=== PATIENT | female | born 1970 | race Caucasian/White ===

== ENCOUNTER → 2016-11-02 | Outpatient (CLI) | payer OTHER ==
[~2016-11-02] MED LIST: ACET-1175 PO; AMIT50TA3 PO; AMT25 PO; ASPI81TA28 PO; BCTROWC EXT; CEPH500C2 PO; CHOL1000 PO; CYAN1SUB12 PO; CYAN250T PO; DVN/160 PO; FENO145T26 PO; INSDGI SC; INSU1.2I SC; LEVO100T48 PO; LEVO150T9 PO; METF-384 PO; MXZC25 PO; NVLGI SC; NVLGIPEN SC; SIMV20TA2 PO; SULF800T23 PO; VTMB12UNK PO
--- NOTE | 2016-11-02 12:15 | DIAGNOSTIC IMAGING REPORT ---
THYROID ULTRASOUND CLINICAL HISTORY: Globus sensation. COMPARISON STUDY: Thyroid ultrasound August 01, 2009. TECHNIQUE: Sonography of the thyroid gland was performed. FINDINGS: The thyroid gland is heterogeneous. Size of the gland is normal. The right lobe measures 4.9 x 1.9 x 2.4 cm and the left lobe measures 5.4 x 1.4 x 1.8 cm. No thyroid nodule is identified. Gland heterogeneity may have slightly increased since exam of August 01, 2009. IMPRESSION: 1. No thyroid nodules identified. 2. Heterogeneous, normal size thyroid gland. Gland heterogeneity has likely slightly increased since exam of August 01, 2009. Electronically signed by: Slade Macedo M.D. 11/02/2016 12:13 PM Dictated Date/Time: 11/02/2016 12:12 PM
== END | disposition home or self-care (01) ==
LOC: C.ULTR 10:29
PROVIDERS: ATTEND Family Medicine
DX: F45.8 Other somatoform disorders (principal)

== ENCOUNTER → 2016-11-23 | Outpatient (CLI) | payer OTHER ==
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
== END | disposition home or self-care (01) ==
LOC: C.MAMM 10:04
PROVIDERS: ATTEND Nurse Practitioner Family
DX: N63 Unspecified lump in breast (principal)

== ENCOUNTER → 2017-01-29 | Outpatient (CLI) | payer OTHER ==
[2017-01-29 12:37] LABS: BASO % 0.2 %; BASO ABS # 0.01 K/uL (0-0.2); COMPLETE YES; EOS % 1.6 %; HEMATOCRIT 38.7 % (37-47); IG% 0.7 %; LYMPH % 27.7 %; LYMPH ABS # 1.19 K/uL (1.2-3.4); MEAN CELL VOLUME 93.9 fL (80-100); MEAN CORPUSCULAR HEMOGLOBIN 30.6 pg (25-34); MEAN CORPUSCULAR HGB CONC 32.6 g/dl (32-36); MONO % 4.4 %; NEUT % 65.4 %; PLATELET COUNT 243 K/uL (130-400); RED BLOOD COUNT 4.12 M/uL (4.2-5.4)
[2017-01-29 12:57] LABS: ESTIMATED AVERAGE GLUCOSE 252 mg/dl; HA1C FLAG Normal (Normal)
[2017-01-29 12:59] LABS: CALCIUM 9.5 mg/dl (8.5-10.1)
[2017-01-29 13:06] LABS: ALT/SGPT 33 U/L (12-78); AST/SGOT 29 U/L (15-37); BLOOD UREA NITROGEN 15 mg/dl (7-18); BUN/CREATININE RATIO 14.9 (10-20); CARBON DIOXIDE 24 mmol/L (21-32); CHLORIDE 103 mmol/L (98-107); CHOLESTEROL 139 mg/dl (0-200); CREATININE 0.98 mg/dl (0.60-1.20); GLUCOSE 194 mg/dl (70-99); POTASSIUM 4.2 mmol/L (3.5-5.1); SODIUM 138 mmol/L (136-145); TRIGLYCERIDES 347 mg/dl (0-150); VERY LOW DENSITY LIPOPROT CALC 69 mg/dl
[2017-01-29 13:16] LABS: ALB/GLOB RATIO 0.8 (0.9-2); ALKALINE PHOSPHATASE 75 U/L (45-117); HDL CHOLESTEROL 28 mg/dl; LDL CHOLESTEROL CALCULATED 42 mg/dl
[2017-01-29 13:24] LABS: RATIO 86.3 mcg/mg (0-30.0)
== END | disposition home or self-care (01) ==
LOC: C.LAB 11:16
PROVIDERS: ATTEND Nurse Practitioner Family
DX: E03.9 Hypothyroidism, unspecified (principal); I10 Essential (primary) hypertension; E78.00 Pure hypercholesterolemia, unspecified; E88.81 Metabolic syndrome and other insulin resistance; M12.88 Other specific arthropathies, not elsewhere classified, other specified site; E53.8 Deficiency of other specified B group vitamins; E55.9 Vitamin D deficiency, unspecified; E11.49 Type 2 diabetes mellitus with other diabetic neurological complication; E66.01 Morbid (severe) obesity due to excess calories

== ENCOUNTER 2017-03-14 15:16 | Emergency (ER) | payer OTHER ==
[~2017-03-14] VITALS: Ht 162.6 cm; Wt 156.0 kg
[~2017-03-14 15:16] MED LIST changes: -AMIT50TA3 PO; -BCTROWC EXT; -CEPH500C2 PO; -CHOL1000 PO; -CYAN1SUB12 PO; -CYAN250T PO; -INSU1.2I SC; -LEVO150T9 PO; -NVLGIPEN SC; -SULF800T23 PO
[2017-03-14 15:17] VITALS: TEMP 36.7; Ht 162.6 cm; Wt 156.0 kg
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
[2017-03-14] MEDS ORDERED: CYAN250T PO (15:56)
[2017-03-14] MEDS ORDERED: CHOL1000 PO (15:56)
[2017-03-14] MEDS ORDERED: AMIT50TA3 PO ×2 (15:56)
[2017-03-14] MEDS ORDERED: INSU1.2I SC (15:56)
[2017-03-14] MEDS ORDERED: NVLGIPEN SC (15:56)
--- NOTE | 2017-03-14 16:41 | DIAGNOSTIC IMAGING REPORT ---
RIGHT ELBOW MIN 3 VIEWS ROUTINE, RIGHT FOREARM 2 VIEWS ROUTINE, RIGHT WRIST W/NAVICULAR MIN 3 VIEWS, RIGHT HAND MIN 3 VIEWS ROUTINE CLINICAL HISTORY: fall, right arm pain Right. Right elbow pain. Right wrist pain and right hand pain. COMPARISON STUDY: None. FINDINGS: Dorsal soft tissue swelling within the wrist. Posterior forearm soft tissue swelling. No fracture or dislocation. No elbow effusion. IMPRESSION: No fracture or dislocation within the right elbow, right forearm, right wrist, or right hand. Electronically signed by: Hollis Espino M.D. 03/14/2017 4:40 PM Dictated Date/Time: 03/14/2017 4:36 PM
[2017-03-14 17:32] VITALS: BP 172/90; PULSE 95; O2SAT 99
== END 2017-03-14 17:32 | disposition home or self-care (01) ==
LOC: C.EDB 15:17 → C.EDD 17:32
DX: S63.501A Unspecified sprain of right wrist, initial encounter (principal); W19.XXXA Unspecified fall, initial encounter; E03.9 Hypothyroidism, unspecified; E11.9 Type 2 diabetes mellitus without complications; I10 Essential (primary) hypertension; K42.9 Umbilical hernia without obstruction or gangrene; Z79.4 Long term (current) use of insulin

== ENCOUNTER 2017-05-15 00:47 | Emergency (ER) | payer OTHER ==
[~2017-05-15] VITALS: Ht 165.1 cm; Wt 156.4 kg
[~2017-05-15 00:47] MED LIST changes: -ACET-1175 PO; +AMIT50TA3 PO; -AMT25 PO; +CHOL1000 PO; +CYAN250T PO; -INSDGI SC; +INSU1.2I SC; -LEVO100T48 PO; -NVLGI SC; +NVLGIPEN SC; -VTMB12UNK PO
[2017-05-15 00:51] VITALS: BP 163/96; PULSE 104; TEMP 36.6; O2SAT 96; Ht 165.1 cm; Wt 156.4 kg
[2017-05-15] MEDS ORDERED: BCTROWC EXT (01:12)
[2017-05-15] MEDS ORDERED: MUPIROCIN 2% OINT 22 GM TUBE EXT ONE (01:15)
[2017-05-15] MEDS ORDERED: CYAN1SUB12 PO (01:17)
[2017-05-15] MEDS ORDERED: LEVO150T9 PO (01:19)
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
== END 2017-05-15 01:30 | disposition home or self-care (01) ==
LOC: C.EDB 00:49 → C.EDA 01:30
DX: E13.622 Other specified diabetes mellitus with other skin ulcer (principal); I10 Essential (primary) hypertension; Z79.4 Long term (current) use of insulin; Z79.899 Other long term (current) drug therapy

== ENCOUNTER 2017-06-08 20:49 | Emergency (ER) | payer OTHER ==
[~2017-06-08] VITALS: Ht 167.6 cm; Wt 154.0 kg
[~2017-06-08 20:49] MED LIST changes: +CYAN1SUB12 PO; -CYAN250T PO; +LEVO150T9 PO
[2017-06-08 20:52] VITALS: TEMP 36.8; Ht 167.6 cm; Wt 154.0 kg
[2017-06-08] MEDS ORDERED: KETOROLAC TROMETHAMINE 30 MG/ML VIAL IV STA (21:25)
[2017-06-08] MEDS ORDERED: CEFTRIAXONE SOD INJ 1 GM ADDVIAL IV STA (21:25)
[2017-06-08] MEDS ORDERED: SODIUM CHLORIDE 0.9% 1000ML 1,000 ML IV STA (21:25)
[2017-06-08] MEDS ORDERED: SULFAMETHOXAZOLE/TRIMETHOPRIM DS 800/160MG TAB PO STA (21:25)
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
[2017-06-08 21:50] LABS: BASO % 0.1 %; BASO ABS # 0.01 K/uL (0-0.2); COMPLETE YES; HEMATOCRIT 37.4 % (37-47); IG% 0.4 %; LYMPH % 11.6 %; LYMPH ABS # 0.81 K/uL (1.2-3.4); MEAN CELL VOLUME 93.5 fL (80-100); MEAN CORPUSCULAR HEMOGLOBIN 32.8 pg (25-34); MEAN PLATELET VOLUME 10.6 fL (7.4-10.4); NEUT % 84.9 %; PLATELET COUNT 228 K/uL (130-400); WHITE BLOOD COUNT 6.97 K/uL (4.8-10.8)
[2017-06-08] MEDS ORDERED: SULF800T23 PO (21:57)
[2017-06-08] MEDS ORDERED: CEPH500C2 PO (21:57)
[2017-06-08 22:07] LABS: BUN/CREATININE RATIO 11.9 (10-20); CALCIUM 10.6 mg/dl (8.5-10.1); CREATININE 1.1 mg/dl (0.60-1.20); POTASSIUM 4.3 mmol/L (3.5-5.1)
[2017-06-08 22:53] VITALS: BP 134/78; PULSE 99; O2SAT 98
== END 2017-06-08 22:59 | disposition home or self-care (01) ==
LOC: C.EDB 20:51 → C.EDC 22:59
DX: L03.113 Cellulitis of right upper limb (principal); E11.9 Type 2 diabetes mellitus without complications; N80.9 Endometriosis, unspecified; I10 Essential (primary) hypertension; Z80.9 Family history of malignant neoplasm, unspecified; Z83.3 Family history of diabetes mellitus; Z83.79 Family history of other diseases of the digestive system; Z82.49 Family history of ischemic heart disease and other diseases of the circulatory system; Z84.1 Family history of disorders of kidney and ureter; Z79.82 Long term (current) use of aspirin; Z79.4 Long term (current) use of insulin; Z79.899 Other long term (current) drug therapy

== ENCOUNTER → 2017-08-30 | Outpatient (CLI) | payer OTHER ==
[2017-08-30 13:27] LABS: ESTIMATED AVERAGE GLUCOSE 220 mg/dl; HA1C FLAG Normal (Normal)
[2017-08-30 13:47] LABS: CREATININE RANDOM URINE 96.1 mg/dl
[2017-08-30 13:58] LABS: RATIO 121.8 mcg/mg (0-30.0)
[2017-08-30 14:06] LABS: ALT/SGPT 28 U/L (12-78); AST/SGOT 22 U/L (15-37); BLOOD UREA NITROGEN 17 mg/dl (7-18); BUN/CREATININE RATIO 16.8 (10-20); CALCIUM 9.3 mg/dl (8.5-10.1); CARBON DIOXIDE 23 mmol/L (21-32); CHLORIDE 102 mmol/L (98-107); CREATININE 0.99 mg/dl (0.60-1.20); GLUCOSE 147 mg/dl (70-99); POTASSIUM 3.8 mmol/L (3.5-5.1); SODIUM 136 mmol/L (136-145)
[2017-08-30 14:15] LABS: ALB/GLOB RATIO 0.8 (0.9-2); ALKALINE PHOSPHATASE 70 U/L (45-117); CHOLESTEROL 123 mg/dl (0-200); CHOLESTEROL/HDL RATIO 4.4; HDL CHOLESTEROL 28 mg/dl; LDL CHOLESTEROL CALCULATED 28 mg/dl; TRIGLYCERIDES 334 mg/dl (0-150); VERY LOW DENSITY LIPOPROT CALC 67 mg/dl
== END | disposition home or self-care (01) ==
LOC: C.LAB 12:07
PROVIDERS: ATTEND Nurse Practitioner Family
DX: I10 Essential (primary) hypertension (principal); E78.00 Pure hypercholesterolemia, unspecified; E11.49 Type 2 diabetes mellitus with other diabetic neurological complication

== ENCOUNTER 2017-10-12 11:49 | Emergency (ER) | payer OTHER ==
[~2017-10-12] VITALS: Ht 165.1 cm; Wt 118.0 kg
[~2017-10-12 11:49] MED LIST changes: -ASPI81TA28 PO; -CYAN1SUB12 PO; -INSU1.2I SC; -LEVO150T9 PO; -METF-384 PO; -MXZC25 PO
[2017-10-12 11:58] VITALS: TEMP 36.7; Ht 165.1 cm; Wt 118.0 kg
[2017-10-12 12:17] VITALS: O2SAT 99
[2017-10-12] MEDS ORDERED: FAMOTIDINE 20MG/5ML IV PUSH IV STA (12:50)
[2017-10-12] MEDS ORDERED: DiphenhydrAMINE HCL 50 MG/ML VIAL IV STA (12:50)
[2017-10-12] MEDS ORDERED: KETOROLAC TROMETHAMINE 30 MG/ML VIAL IV STA (12:50)
[2017-10-12 13:19] LABS: EOS % 0.4 %; EOS ABS # 0.02 K/uL (0-0.5); HEMATOCRIT 36.5 % (37-47); HEMOGLOBIN 12.4 g/dL (12.0-16.0); IG# 0.02 K/uL (0.00-0.02); LYMPH % 15.9 %; LYMPH ABS # 0.83 K/uL (1.2-3.4); MEAN CELL VOLUME 92.9 fL (80-100); MEAN CORPUSCULAR HEMOGLOBIN 31.6 pg (25-34); MEAN PLATELET VOLUME 10.6 fL (7.4-10.4); MONO ABS # 0.26 K/uL (0.11-0.59); NEUT % 78.3 %; NEUT ABS # 4.09 K/uL (1.4-6.5); PLATELET COUNT 240 K/uL (130-400); RED CELL DISTRIBUTION WIDTH CV 13.1 % (11.5-14.5); RED CELL DISTRIBUTION WIDTH SD 44.2 fL (36.4-46.3); WHITE BLOOD COUNT 5.22 K/uL (4.8-10.8)
[2017-10-12] MEDS ORDERED: ONDANSETRON INJ 2 MG/ML 2 ML VIAL IV STA (13:19)
[2017-10-12 13:26] LABS: CALCIUM 9.4 mg/dl (8.5-10.1); CREATININE 1.24 mg/dl (0.60-1.20); POTASSIUM 3.7 mmol/L (3.5-5.1)
--- NOTE | 2017-10-12 14:14 | DIAGNOSTIC IMAGING REPORT ---
CHEST 2 VIEWS ROUTINE CLINICAL HISTORY: Cough, fever and right shoulder rash. COMPARISON STUDY: Chest radiograph November 21, 2014. FINDINGS: Lung volumes are normal. Lungs are clear. No pneumothorax or pleural effusion is present. Cardiomediastinal silhouette is stable. There is no evidence of pulmonary edema. The appearance of the chest is unchanged. IMPRESSION: No acute cardiopulmonary findings. Electronically signed by: Slade Macedo M.D. 10/12/2017 2:13 PM Dictated Date/Time: 10/12/2017 2:12 PM
[2017-10-12] MEDS ORDERED: DEXAMETHASONE INJ 10 MG in SYRINGE 0 ML IV STA (14:19)
[2017-10-12] MEDS ORDERED: DEXAMETHASONE **PF** INJ 10 MG/ML VIAL ONE (14:24)
[2017-10-12] MEDS ORDERED: METH4PAK PO (15:26)
[2017-10-12] MEDS ORDERED: CEPH500C PO (15:26)
[2017-10-12 15:40] VITALS: BP 140/80; PULSE 91; O2SAT 98
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
[2018-04-22] MEDS ORDERED: MXZC25 PO (00:36)
[2018-04-22] MEDS ORDERED: ASPI81TA28 PO (00:38)
[2018-04-22] MEDS ORDERED: METF-384 PO (00:40)
[2018-04-22] MEDS ORDERED: CYAN1SUB12 PO (01:17)
[2018-04-22] MEDS ORDERED: LEVO150T9 PO (01:19)
[2018-04-22] MEDS ORDERED: INSU1.2I SC (15:56)
[2018-04-22] MEDS ORDERED: HYDR-4383 PO (22:50)
[2018-04-22] MEDS ORDERED: LIRA18IN PO (22:50)
[2018-04-22] MEDS ORDERED: TRC145 PO (22:50)
[2018-04-22] MEDS ORDERED: AMT100 PO (22:50)
[2018-04-22] MEDS ORDERED: NVLGI/PEN SC (22:50)
[2018-04-22] MEDS ORDERED: SIMV-151 PO (22:50)
[2018-04-22] MEDS ORDERED: VALS-58 PO (22:50)
[2018-04-22] MEDS ORDERED: CHOLCAP5 PO (22:51)
[2018-04-25] MEDS ORDERED: POLY335019 PO (16:01)
== END 2017-10-12 15:46 | disposition home or self-care (01) ==
LOC: C.EDB 11:51 → C.EDA 15:46
DX: J06.9 Acute upper respiratory infection, unspecified (principal); R21 Rash and other nonspecific skin eruption; E11.9 Type 2 diabetes mellitus without complications; Z79.84 Long term (current) use of oral hypoglycemic drugs; Z79.4 Long term (current) use of insulin; I10 Essential (primary) hypertension; Z90.49 Acquired absence of other specified parts of digestive tract; Z80.9 Family history of malignant neoplasm, unspecified; Z83.3 Family history of diabetes mellitus; Z82.49 Family history of ischemic heart disease and other diseases of the circulatory system; Z84.1 Family history of disorders of kidney and ureter; Z87.891 Personal history of nicotine dependence; Z79.82 Long term (current) use of aspirin; Z79.899 Other long term (current) drug therapy

== ENCOUNTER → 2018-01-26 | Outpatient (CLI) | payer OTHER ==
[~2018-01-26] MED LIST changes: +ASPI81TA28 PO; +CYAN1SUB12 PO; +INSU1.2I SC; +LEVO150T9 PO; +METF-384 PO; +MXZC25 PO
[2018-01-26 13:56] LABS: BLOOD UREA NITROGEN 13 mg/dl (7-18); CALCIUM 9.7 mg/dl (8.5-10.1); CARBON DIOXIDE 25 mmol/L (21-32); CREATININE 1.15 mg/dl (0.60-1.20); GLUCOSE 128 mg/dl (70-99); SODIUM 135 mmol/L (136-145)
== END | disposition home or self-care (01) ==
LOC: C.LAB 12:05
PROVIDERS: ATTEND Nurse Practitioner Family
DX: E03.9 Hypothyroidism, unspecified (principal); E88.81 Metabolic syndrome and other insulin resistance; E11.49 Type 2 diabetes mellitus with other diabetic neurological complication

== ENCOUNTER → 2018-04-27 | Outpatient (CLI) | payer OTHER ==
[~2018-04-27] MED LIST changes: -AMIT50TA3 PO; +AMT100 PO; -CHOL1000 PO; +CHOLCAP5 PO; -DVN/160 PO; -FENO145T26 PO; +HYDR-4383 PO; +LIRA18IN PO; +NVLGI/PEN SC; -NVLGIPEN SC; +POLY335019 PO; +SIMV-151 PO; -SIMV20TA2 PO; +TRC145 PO; +VALS-58 PO
[2018-04-27 13:43] LABS: HEMOGLOBIN A1C 7.9 % (4.5-5.6)
[2018-04-27 14:07] LABS: BASO % 0.2 %; BASO ABS # 0.01 K/uL (0-0.2); EOS % 1.3 %; EOS ABS # 0.06 K/uL (0-0.5); HEMATOCRIT 33.3 % (37-47); HEMOGLOBIN 11.2 g/dL (12.0-16.0); IG# 0.04 K/uL (0.00-0.02); LYMPH % 26.2 %; LYMPH ABS # 1.21 K/uL (1.2-3.4); MEAN CELL VOLUME 92.5 fL (80-100); MEAN CORPUSCULAR HEMOGLOBIN 31.1 pg (25-34); MEAN CORPUSCULAR HGB CONC 33.6 g/dl (32-36); MEAN PLATELET VOLUME 10.4 fL (7.4-10.4); MONO % 4.6 %; MONO ABS # 0.21 K/uL (0.11-0.59); NEUT % 66.8 %; NEUT ABS # 3.08 K/uL (1.4-6.5); PLATELET COUNT 282 K/uL (130-400); RED CELL DISTRIBUTION WIDTH CV 13.3 % (11.5-14.5); RED CELL DISTRIBUTION WIDTH SD 44.9 fL (36.4-46.3); WHITE BLOOD COUNT 4.61 K/uL (4.8-10.8)
== END | disposition home or self-care (01) ==
LOC: C.LAB 12:23
PROVIDERS: ATTEND Nurse Practitioner Family
DX: E11.49 Type 2 diabetes mellitus with other diabetic neurological complication (principal); D64.9 Anemia, unspecified

== ENCOUNTER 2019-05-03 22:08 | Inpatient (IN) ==
[2019-05-03] MEDS ORDERED: ACETAMINOPHEN 500 MG TAB PO STA (22:20)
[2019-05-03] MEDS ORDERED: SODIUM CHLORIDE 0.9% 1000ML 2,000 ML IV ONE (22:20)
[2019-05-03] MEDS ORDERED: KETOROLAC TROMETHAMINE 15 MG/ML VIAL IV STA (22:20)
--- NOTE | 2019-05-03 22:27 | XRay Report ---
XR chest 1V portable CLINICAL HISTORY: Sepsis condition COMPARISON STUDY: 04/22/2018 FINDINGS: The bones soft tissues and hemidiaphragms are normal. The cardiomediastinal silhouette is n ormal. The lungs are clear. The pulmonary vasculature is normal. IMPRESSION: Negative chest. The above report was generated using voice recognition software. It may contain grammatical, syntax or spelling errors. Electronically signed by: Sylvester Jernigan M.D. 05/03/2019 10:26 PM
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
[2019-05-03 22:53] LABS: Basophils # (auto) 0.01 K/uL (0-0.2); Basophils % (auto) 0.1 %; Eosinophils # (auto) 0.01 K/uL (0-0.5); Eosinophils % (auto) 0.1 %; Hematocrit (blood only) 36.6 % (37-47); Hemoglobin 12.4 g/dL (12.0-16.0); Immature Granulocytes # (auto) 0.04 K/uL (0.00-0.02); Immature Granulocytes % (auto) 0.3 %; Lymphocytes % (auto) 5.1 %; Mean Corpuscular Hgb Conc 33.9 g/dL (32-36); Mean Corpuscular Volume 94.6 fL (80-100); Mean Platelet Volume 10.7 fL (7.4-10.4); Monocytes # (auto) 0.44 K/uL (0.11-0.59); Monocytes % (auto) 3.7 %; Neutrophils # (auto) 10.65 K/uL (1.4-6.5); Neutrophils % (auto) 90.7 %; Platelet Count 240 K/uL (130-400); RDW Coefficient of Variation 13.4 % (11.5-14.5); RDW Standard Deviation 46.1 fL (36.4-46.3); Red Blood Count 3.87 M/uL (4.2-5.4); White Blood Count 11.75 K/uL (4.8-10.8)
[2019-05-03 23:05] LABS: Partial Thromboplastin Ratio 0.9; Partial Thromboplastin Time 23.8 Seconds (21.0-31.0); Prothrombin Time 10.3 Seconds (9.0-12.0)
[2019-05-03 23:12] LABS: Alanine Aminotransferase 24 U/L (12-78); Albumin Level 3.6 gm/dl (3.4-5.0); Aspartate Aminotransferase 23 U/L (15-37); Blood Urea Nitrogen 15 mg/dl (7-18); Calcium 9.6 mg/dl (8.5-10.1); Carbon Dioxide 25 mmol/L (21-32); Chloride 103 mmol/L (98-107); Creatinine Clr Calc Pharmacy 73.8 ml/min; Est GFR (African American) 49.5; Est GFR (Non-African American) 42.7; Glucose 108 mg/dl (70-99); Sodium 136 mmol/L (136-145)
[2019-05-03 23:17] LABS: Albumin Globulin Ratio 0.8 (0.9-2); Alkaline Phosphatase 59 U/L (45-117); Bilirubin,Total 0.4 mg/dl (0.2-1); Globulin 4.4 gm/dl (2.5-4.0); Troponin I < 0.015 ng/ml (0-0.045)
[2019-05-03 23:20] LABS: Appearance Urine Cloudy (Clear); Bacteria Urine Automated 2+ (Negative); Bilirubin Urine Negative (Negative); Blood Urine Negative (Negative); Color Urine Yellow; Epithelial Cell Urine Auto >30 /lpf (0-5); Glucose Urine UA Negative (Negative); Ketones Urine Negative (Negative); Leukocyte Esterase Urine Negative (Negative); Nitrite Urine Negative (Negative); RBC Urine Automated 0-4 /hpf (0-4); Specific Gravity Urine 1.016 (1.000-1.030); Urobilinogen Urine Negative (Negative); pH Urine 8.5 (4.5-7.5)
[2019-05-03 23:21] LABS: Magnesium 1.4 mg/dl (1.8-2.4)
[2019-05-03 23:30] LABS: Protein Urine Negative (Negative)
[2019-05-03] MEDS ORDERED: OPTIRAY 320 125ml IV PRN (23:53)
[2019-05-04] MEDS ORDERED: MoRPHine SULFATE 4 MG/ML 1 ML CARP\\VIAL ONE ×2 (00:34→03:04)
[2019-05-04] MEDS ORDERED: PIPERACILLIN/TAZOBACTAM 4.5 GM/120 ML BAG IV ONE (01:31)
[2019-05-04] MEDS ORDERED: PIPERACILL/TAZOBAC CONSULT ACTIVE PRN ×2 (01:31→04:01)
[2019-05-04] MEDS ORDERED: SODIUM CHLORIDE 0.9% 1000ML 1,000 ML IV ONE (01:31)
[2019-05-04] MEDS ORDERED: ONDANSETRON INJ 2 MG/ML 2 ML VIAL ONE (03:03)
[2019-05-04] MEDS ORDERED: POLYETHYLENE (MIRALAX) 17 GM PACK PO PRN (04:01)
[2019-05-04] MEDS ORDERED: NON-FORMULARY MEDICATION (Polyethylene Glycol 3350 [Miralax] 17 GM) PO PRN (04:01)
[2019-05-04] MEDS ORDERED: NITROGLYCERIN SL 0.4 MG/TAB TAB SL PRN (04:01)
[2019-05-04] MEDS: SODIUM CHLORIDE 0.9% 1000ML 1,000 ML IV SCH ×3 (04:33→21:10)
[2019-05-04] MEDS: MAGNESIUM SULFATE / D5W 1 GM/100 ML BAG IV SCH ×2 (04:34→05:34)
--- NOTE | 2019-05-04 04:35 | History and Physical Report ---
DATE OF ADMISSION: 05/04/2019 CHIEF COMPLAINT: Not feeling well, fever. HISTORY OF PRESENT ILLNESS: This is a 48-year-old female with past medical history significant for type 2 diabetes, hypothyroidism, hypertension, morbid obesity, history of small-bowel obstruction, ventral hernia, presents with not feeling well since yesterday. The patient says since yesterday, she was feeling cold and chilly, then she developed some fever, whole body ache. Left side of chest hurts and left side of body hurts, some back pain, weakness, having difficulty ambulating, poor appetite, headaches, some blurred vision, so she came to the hospital. She had temp spike in the ER and elevated white count, but no obvious source of infection identified so far. The point of the lactic acid was slightly high at 2.1. The patient was nauseous, no vomiting. Normal bowel and bladder movements. No blood in the stools, no black stools. States she has some mild burning micturition, but no hematuria. No swelling in the legs, no rash. ALLERGIES: DILTIAZEM AND LOSARTAN. PAST MEDICAL HISTORY: As mentioned above. PAST SURGICAL HISTORY: Exploratory laparoscopy, laparoscopic umbilical hernia repair, lumbar shots, removal of small intestine, cholecystectomy, umbilical hernia repair. MEDICATIONS: The patient is on simvastatin 20 mg p.o. daily, Maxzide 37.5/25 mg daily, NovoLog FlexPen 56 units daily, plus sliding scale, Toujeo SoloStar 135 units b.i.d., Elavil 100 mg p.o. at bedtime, Victoza 1.2 mg subcutaneous once daily, levothyroxine 150 mcg p.o. daily, losartan 100 mg p.o. daily, vitamin D 3000 units p.o. daily, aspirin 81 mg p.o. daily, cyanocobalamin 2500 mcg daily, fenofibrate 145 mg p.o. daily, metformin 1000 mg p.o. b.i.d. FAMILY HISTORY: Significant for uncle had colon cancer and heart disease. Mother has hypertension and thyroid disorder. Maternal grandmother has diabetes. SOCIAL HISTORY: Lives with her mom. No smoking history. No alcohol, no drug use. REVIEW OF SYMPTOMS: As per HPI. Rest of review of systems negative. PHYSICAL EXAMINATION: GENERAL: The patient is morbidly obese, not in acute distress. VITAL SIGNS: T-max 38.4, pulse 101, respiratory rate 19, blood pressure 103/57, oxygen 96% room air. HEENT: No pallor, no icterus. Pupils equal, round, and reactive to light. NECK: No JVD, no neck masses, no carotid bruits. CARDIOVASCULAR: S1, S2 heard, regular rate and rhythm, no murmur, no gallop. RESPIRATORY SYSTEM: Normal AP diameter. No accessory muscle use. No wheezing, no crackles. ABDOMEN: Soft, bowel sounds present, nontender. No distention. CENTRAL NERVOUS SYSTEM: Cranial nerves II-XII grossly intact. Nonfocal. EXTREMITIES: No edema, no erythema. LABORATORY DATA: WBC 11.7, hemoglobin 12.4, hematocrit 36.6, platelets 240. PT 10.3, INR 1, APTT 23.8. Sodium 136, potassium 4, chloride 103, bicarbonate 25, BUN 15, creatinine 1.4, serum glucose 108. Point of lactic acid 2.1, calcium 9.6, magnesium 1.4, total bilirubin 0.4, AST 23, ALT 24, alkaline phosphatase 59. Troponin I less than 0.015. Procalcitonin 0.12. TSH 2.3. Urinalysis negative. CT of the abdomen and pelvis, unofficial report unremarkable. Chest x-ray, negative chest. EKG: Sinus tachycardia at a rate of 114. No acute ST changes seen. ASSESSMENT AND PLAN: This is a 48-year-old female who presents with fever, not feeling well, possible sepsis. 1. Possible sepsis. Meets criteria with elevated white count, temperature spike, tachycardia, source unclear at this point. UA was negative. Chest x-ray was negative. CT abdomen and pelvis unremarkable. Possible skin infection, could be viral infection. Point of lactic acid is 2.1. will repeat lactic acid. Continue IV fluids and normal saline of 125mL per hour. We will continue IV Zosyn. Follow the blood cultures. Monitor in the Med/Surg tele. 2. Diabetes. Continue home Toujekyrie Max with ISS . Hold metformin. Follow the blood sugars, follow HbA1c levels. 3. History of hyperlipidemia. Continue fenofibrate and statin. 4. Hypertension. Continue losartan with holding parameters and hold triamterene/hydrochlorothiazide. 5. Hypothyroidism. Continue Synthroid. 6. Morbid obesity, needs counseling and needs maybe sleep study as outpatient. 7. Deep venous thrombosis prophylaxis, heparin subcutaneously. 8. Disposition: Admit to med/surg tele. Level 1 full code. MTDD
[2019-05-04] MEDS ORDERED: PHARMACY GLYCEMIC MGMT CONSULT PRN (04:39)
[2019-05-04 05:26] LABS: BUN Creatinine Ratio 10.8 (10-20); Calcium 8.2 mg/dl (8.5-10.1); Creatinine Clr Calc Pharmacy 76.5 ml/min; Est GFR (African American) 49.9; Est GFR (Non-African American) 43.1; Potassium 3.8 mmol/L (3.5-5.1)
[2019-05-04] MEDS: PIPERACILLIN/TAZOBACTAM 4.5 GM in DEXTROSE 5% 100 ML IV SCH ×3 (06:30→21:51)
[2019-05-04] MEDS: LEVOTHYROXINE SODIUM 150 MCG TABLET PO SCH (06:33)
[2019-05-04] MEDS: HEPARIN SOD 5,000 UNIT/0.5 ML VIAL SQ SCH ×3 (06:33→21:05)
[2019-05-04] MEDS: ACETAMINOPHEN 325 MG TAB PO PRN ×3 (06:39→21:58)
--- NOTE | 2019-05-04 06:40 | CT Scan Report ---
CT abd pelvis IV con only CLINICAL HISTORY: Abdominal pain and fever COMPARISON STUDY: 04/23/2018 TECHNIQUE: The patient was scanned in a dynamic helical fashion during intravenous administration of 119 cc of Optiray 320. A dose lowering technique was utilized adhering to the principles of ALARA. CT DOSE: 2166.24 mGy.cm FINDINGS: Lower chest: The heart is normal in size and configuration, without pericardial effusion. The lung ba ses and pleural spaces are clear. Liver: There is borderline hepatic steatosis. The liver is enlarged measuring 26.7 cm. No focal shabnam s are visualized. The portal vein appears patent. There are equivocal early cirrhotic changes. Gallbladder: Surgically absent Spleen: The spleen is mildly enlarged measuring 13.8 cm. There is a stable 13 mm hypodensity within t he superior aspect of the spleen. Pancreas: Unremarkable. Adrenal glands: Unremarkable. Kidneys: There is symmetric renal cortical enhancement. The kidneys are normal in size without hydron ephrosis. Bowel: There are no transition zones indicate bowel obstruction. There is no acute diverticulitis. By history the patient is status post a prior appendectomy. Peritoneum: There is no intraperitoneal free air or abdominal ascites. Vasculature: The abdominal aorta is normal in course and caliber. Adenopathy: There are mildly enlarged lymph nodes in the tyrel hepatis region, possibly secondary to underlying hepatocellular disease Pelvic viscera: The bladder, and pelvic viscera are unremarkable. Skeletal structures: No destructive osseous lesions are seen. There is eggshell calcifications within the subcutaneous fat at the umbilical level, likely secondary to fat necrosis. IMPRESSION: 1. No evidence of bowel obstruction. No evidence of free air 2. Mild hepatic steatosis and hepatosplenomegaly 3. No evidence of acute diverticulitis 4. Mildly enlarged lymph nodes in the tyrel hepatis region, possibly secondary to underlying hepatoce llular disease Electronically signed by: Rolo Cerrato M.D. 05/04/2019 6:38 AM
[2019-05-04] MEDS: MoRPHine SULFATE 4 MG/ML 1 ML CARP\\VIAL IV PRN ×2 (07:54→16:41)
[2019-05-04] MEDS: LOSARTAN POTASSIUM 50 MG TAB PO SCH (07:55)
[2019-05-04] MEDS: DOCUSATE SODIUM 100 MG CAP PO SCH (07:55)
[2019-05-04] MEDS: FENOFIBRATE NANOCRYSTALLIZED 145 MG TABLET PO SCH (07:55)
[2019-05-04] MEDS: ASPIRIN 81 MG ECTAB PO SCH (07:55)
[2019-05-04] MEDS: CHOLECALCIFEROL 1,000 UNITS TAB PO SCH (07:55)
[2019-05-04] MEDS: INSULIN ASPART 100 UNITS/ML 3 ML PEN SC SCH ×4 (07:58→21:04)
[2019-05-04] MEDS: ONDANSETRON INJ 2 MG/ML 2 ML VIAL IV PRN ×2 (08:02→14:16)
[2019-05-04] MEDS: INSULIN GLARGINE SOLOSTAR 100 UNITS/ML 3 ML PEN SC SCH ×2 (08:57→21:05)
[2019-05-04] MEDS ORDERED: NON-FORMULARY MEDICATION (Liraglutide [Victoza 2-Pak] 1.2 MG) SQ SCH (09:00)
[2019-05-04 09:36] LABS: Hematocrit (blood only) 32.6 % (37-47); Hemoglobin 10.8 g/dL (12.0-16.0); Immature Granulocytes # (auto) 0.02 K/uL (0.00-0.02); Immature Granulocytes % (auto) 0.3 %; Lymphocytes # (auto) 0.42 K/uL (1.2-3.4); Mean Corpuscular Hgb Conc 33.1 g/dL (32-36); Mean Corpuscular Volume 93.4 fL (80-100); Mean Platelet Volume 10.2 fL (7.4-10.4); Monocytes # (auto) 0.21 K/uL (0.11-0.59); Neutrophils # (auto) 6.32 K/uL (1.4-6.5); Neutrophils % (auto) 90.7 %; Platelet Count 193 K/uL (130-400); RDW Coefficient of Variation 13.8 % (11.5-14.5); RDW Standard Deviation 47.2 fL (36.4-46.3); Red Blood Count 3.49 M/uL (4.2-5.4); White Blood Count 6.97 K/uL (4.8-10.8)
[2019-05-04 09:46] LABS: Estimated Average Glucose 194 mg/dl; Hemoglobin A1C 8.4 % (4.5-5.6)
[2019-05-04 10:00] LABS: BUN Creatinine Ratio 11.8 (10-20); Calcium 8.3 mg/dl (8.5-10.1); Creatinine Clr Calc Pharmacy 75.9 ml/min; Est GFR (African American) 49.5; Est GFR (Non-African American) 42.7; Potassium 3.9 mmol/L (3.5-5.1)
--- NOTE | 2019-05-04 10:29 | Pharmacy Report ---
Glycemic Control Consultation - Date of Service May 04, 2019 - Scope Scope: Glycemic Pharmacist consulted by Dr Cowan on 05/04/19 for glycemic control and to write orders per [facility] inpatient glycemic control protocol - Objective Weight: 160.8 kg Accuchecks BSG (last 24hrs): 05/03/19 05/04/19 05/04/19 22:38 03:12 03:45 Glucose 108 H POC Glucose 79 72 05/04/19 05/04/19 05/04/19 04:46 07:26 09:22 Glucose 98 155 H POC Glucose 111 H Laboratory Data (last 24hrs): 05/03/19 05/04/19 05/04/19 22:38 04:46 09:22 Potassium 4.0 3.8 3.9 Carbon Dioxide Anion Gap 8.0 8.0 7.0 Creatinine 1.46 H 1.45 H 1.46 H Est Cr Clr Drug Dosing 73.8 76.5 75.9 HbA1c: Hemoglobin A1c 8.4 % (4.5-5.6) H 05/04/19 09:22 - Recent Pertinent Medications Outpatient Anti-diabetic Regimen: * Liraglutide 1.2mg SQ AM * Toujeo (insulin glargine U-300) 125 units SQ BID * Metformin 1,000mg PO BIDM Risk Factors for Insulin Resistance: * Infection * Diet - Assessment & Plan Assessment & Plan: ASSESSMENT: * 48yo T2DM female with sub-optimal degree of outpatient control per A1c = 8.4%. Goal A1c likely <7% based on age/co-morbidities. * Pt received her AM dose of Toujeo (glargine U-300) 125 units but did not receive her PM dose. AM fasting BSG slightly below inpatient targets in the mid 70's. Will use an estimated basal dose of ~100-110 units/day for inpatient use while PO intake reduced and meals CHO controlled. * Corresponding CF/CR to estimated basal of ~ 100 units/day * Will continue to titrate based on BSG trends. PLAN FOR INPATIENT GLYCEMIC CONTROL: * Holding outpatient diabetes medications * Basal insulin * Lantus 50 units SQ BID * Bolus insulin * NovoLog per scale ACHS or Q6hrs while NPO * Goal Range: Low 110 mg/dL - High 140 mg/dL * Correction Factor: 10 mg/dL/unit * Nutritional / Prandial insulin per carb ratio of 1 unit per 3 grams CHO consumed * Please note that the plan above was derived based on current level of insulin resistance and hospital stress. These recommendations are appropriate for inpatient admission only. Plan of care upon discharge will need to be reassessed to avoid potential outpatient hypo/hyperglycemia. Thank you.
--- NOTE | 2019-05-04 18:08 | Hospitalist Progress Note ---
Date of Service May 04, 2019 Assessment & Plan (1) Febrile illness, acute: Presented with high fever, aches and pains all over the body and anorexia Seems to be viral UA and chest x-ray are unremarkable Started with intravenous Zosyn empirically Await cultures before discharge Present on Admission?: Yes (2) Sepsis: Possible sepsis on admission Await blood cultures (3) DM (diabetes mellitus): Continue sliding-scale (4) HTN (hypertension): Blood pressure seems to be under control Advised more fluid intake Increase ambulation Likely discharge tomorrow Subjective 05/04 The patient was seen and examined in Telemetry unit She was admitted with high fever, body aches and generalized weakness Has a fever this morning as well Denies any significant other symptoms Review of Systems Review of Systems: All systems reviewed and are unremarkable except as noted below Constitutional: + body aches, + malaise and + weakness Physical Exam Physical Exam: No apparent distress at rest Constitutional: well developed, well nourished and + morbidly obese; no acute distress Eyes: PERRL, conjunctivae normal, anicteric sclerae ENMT: external ear and nose normal, oropharynx normal Neck: trachea midline, no thyromegaly Respiratory: normal respiratory effort Auscultation: + diminished lung sounds (Due to body habitus) Cardiovascular: Rate/Rhythm: regular rate and regular rhythm Heart Sounds: no murmur Gastrointestinal (Abdomen): Inspection/Auscultation: + abdomen distended Percussion/Palpation: + abdomen tender (Mildly tender hypogastrium) and abdomen soft Neurologic: PERRL, EOMI, accommodation nl, no face palsy, no dysarthria Lymphatic: no cervical or axillary lymphadenopathy Results & Data Vital Signs (Past 12 Hours) Vital Signs Temp Pulse Resp BP BP Pulse Ox 05/04/19 15:07 37 C 85 18 119/73 96 05/04/19 12:42 37.2 C 85 18 131/78 98 05/04/19 07:28 38.2 C H 97 H 22 143/75 H 96 Laboratory Results Short CBC 05/03/19 05/04/19 Range/Units 22:38 09:22 WBC 11.75 H 6.97 (4.8-10.8) K/uL Hgb 12.4 10.8 L (12.0-16.0) g/dL Hct 36.6 L 32.6 L (37-47) % Plt Count 240 193 (130-400) K/uL BMP 05/03/19 05/04/19 05/04/19 22:38 04:46 09:22 Sodium 136 135 L 134 L Potassium 4.0 3.8 3.9 Chloride 103 103 105 Carbon Dioxide 24 22 BUN 15 16 17 Creatinine 1.46 H 1.45 H 1.46 H Glucose 108 H 98 155 H Calcium 9.6 8.2 L 8.3 L Cardiac Enzymes 05/03/19 Range/Units 22:38 Troponin I < 0.015 (0-0.045) ng/ml Liver Function 05/03/19 Range/Units 22:38 Total Bilirubin 0.4 (0.2-1) mg/dl AST 23 (15-37) U/L ALT 24 (12-78) U/L Alkaline Phosphatase 59 (45-117) U/L Albumin 3.6 (3.4-5.0) gm/dl Urine 05/03/19 Range/Units 23:09 Urine Color Yellow Urine Appearance Cloudy A (Clear) Urine pH 8.5 H (4.5-7.5) Ur Specific [place] 1.016 (1.000-1.030) Urine Protein Negative (Negative) Urine Glucose (UA) Negative (Negative) Medications Administered Current Inpatient Medications Acetaminophen (Tylenol) 650 mg PO Q4H PRN PRN Reason: Pain or Fever Stop: 06/03/19 04:00 Last Admin: 05/04/19 16:46 Dose: 650 mg Documented by: Amitriptyline HCl (Elavil) 100 mg PO HS [facility] Stop: 06/03/19 20:59 Aspirin (Ecotrin Ectab) 81 mg PO DAILY [facility] Stop: 06/03/19 08:59 Last Admin: 05/04/19 07:55 Dose: 81 mg Documented by: Docusate Sodium (Colace) 200 mg PO DAILY [facility] Stop: 06/03/19 08:59 Last Admin: 05/04/19 07:55 Dose: 200 mg Documented by: Fenofibrate (Tricor) 145 mg PO DAILY [facility] Stop: 06/03/19 08:59 Last Admin: 05/04/19 07:55 Dose: 145 mg Documented by: Heparin Sodium (Porcine) (Heparin Sodium (Porcine)) 5,000 units SQ Q8 [facility] Stop: 06/03/19 05:59 Last Admin: 05/04/19 13:22 Dose: 5,000 units Documented by: Sodium Chloride (Nss 1000ml) 1,000 mls @ 125 mls/hr IV .Q8H [facility] Stop: 06/03/19 04:00 Last Admin: 05/04/19 12:32 Dose: 125 mls/hr Documented by: Piperacillin Sod/Tazobactam (Sod 4.5 gm/ Dextrose) 120 mls @ 30 mls/hr IV Q8H [facility]; Protocol Stop: 05/06/19 05:59 Last Infusion: 05/04/19 17:30 Dose: Infused Documented by: Insulin Aspart (Novolog Flexpen) 0 units SC ACHS [facility] Stop: 06/03/19 07:29 Last Admin: 05/04/19 16:40 Dose: 16 units Documented by: Insulin Glargine (Lantus Solostar Pen) 50 units SC BID [facility] Stop: 06/03/19 08:59 Last Admin: 05/04/19 08:57 Dose: 50 units Documented by: Levothyroxine Sodium (Synthroid) 150 mcg PO DAILYBB [facility] Stop: 06/03/19 06:29 Last Admin: 05/04/19 06:33 Dose: 150 mcg Documented by: Losartan Potassium (Cozaar) 100 mg PO DAILY [facility] Stop: 06/03/19 08:59 Last Admin: 05/04/19 07:55 Dose: 100 mg Documented by: Miscellaneous Information (Consult) 1 ea N/A UD PRN PRN Reason: Consult Stop: 06/03/19 04:00 Miscellaneous Information (Consult Glycemic Management Pharmacy) 1 ea N/A UD PRN PRN Reason: Consult Stop: 06/03/19 04:38 Morphine Sulfate (Morphine Sulfate) 3 mg IV Q4H PRN PRN Reason: Pain Stop: 05/18/19 04:00 Last Admin: 05/04/19 16:41 Dose: 3 mg Documented by: Nitroglycerin (Nitrostat) 0.4 mg SL UD PRN PRN Reason: Chest Pain Stop: 06/03/19 04:00 Ondansetron HCl (Zofran) 4 mg IV Q6H PRN PRN Reason: Nausea Stop: 06/03/19 04:00 Last Admin: 05/04/19 14:16 Dose: 4 mg Documented by: Polyethylene Glycol (Miralax Powder Packet) 17 gm PO DAILY PRN PRN Reason: Constipation Stop: 06/03/19 04:00 Simvastatin (Zocor) 20 mg PO PM [facility] Stop: 06/03/19 20:59 Vitamin D (Vitamin D3) 5,000 units PO DAILY [facility] Stop: 06/03/19 08:59 Last Admin: 05/04/19 07:55 Dose: 5,000 units Documented by: (1) Sepsis Sepsis type: sepsis due to unspecified organism Qualified Code(s): A41.9 - Sepsis, unspecified organism
[2019-05-04] MEDS ORDERED: MICONAZOLE NITRATE POWDER 43 GM EXT PRN (19:07)
[2019-05-04] MEDS: AMITRIPTYLINE HCL 100 MG TAB PO SCH (21:05)
[2019-05-04] MEDS: SIMVASTATIN 20 MG TAB PO SCH (21:05)
[2019-05-04] MEDS ORDERED: TRAMADOL HCL 50 MG TABLET PO PRN (22:10)
[2019-05-04] MEDS ORDERED: KETOROLAC 30 MG/ML VIAL IV PRN (22:11)
[2019-05-05] MEDS: TRAMADOL HCL 50 MG TABLET PO PRN (02:50)
[2019-05-05] MEDS: SODIUM CHLORIDE 0.9% 1000ML 1,000 ML IV SCH ×2 (05:18→13:41)
[2019-05-05] MEDS: HEPARIN SOD 5,000 UNIT/0.5 ML VIAL SQ SCH ×3 (05:59→20:11)
[2019-05-05] MEDS: PIPERACILLIN/TAZOBACTAM 4.5 GM in DEXTROSE 5% 100 ML IV SCH (05:59)
[2019-05-05] MEDS: LEVOTHYROXINE SODIUM 150 MCG TABLET PO SCH (06:01)
[2019-05-05 06:06] LABS: Basophils # (auto) 0.01 K/uL (0-0.2); Basophils % (auto) 0.2 %; Eosinophils # (auto) 0.07 K/uL (0-0.5); Eosinophils % (auto) 1.6 %; Hematocrit (blood only) 32.4 % (37-47); Hemoglobin 10.5 g/dL (12.0-16.0); Immature Granulocytes # (auto) 0.02 K/uL (0.00-0.02); Immature Granulocytes % (auto) 0.5 %; Lymphocytes # (auto) 0.59 K/uL (1.2-3.4); Lymphocytes % (auto) 13.7 %; Mean Corpuscular Hgb Conc 32.4 g/dL (32-36); Mean Platelet Volume 10.8 fL (7.4-10.4); Monocytes # (auto) 0.25 K/uL (0.11-0.59); Monocytes % (auto) 5.8 %; Neutrophils # (auto) 3.38 K/uL (1.4-6.5); Neutrophils % (auto) 78.2 %; Platelet Count 198 K/uL (130-400); RDW Coefficient of Variation 14.1 % (11.5-14.5); RDW Standard Deviation 48.9 fL (36.4-46.3); Red Blood Count 3.41 M/uL (4.2-5.4); White Blood Count 4.32 K/uL (4.8-10.8)
[2019-05-05 06:45] LABS: BUN Creatinine Ratio 12.7 (10-20); Calcium 8.2 mg/dl (8.5-10.1); Creatinine Clr Calc Pharmacy 93.9 ml/min; Est GFR (African American) 64.1; Est GFR (Non-African American) 55.3; Magnesium 2.1 mg/dl (1.8-2.4); Potassium 3.9 mmol/L (3.5-5.1)
[2019-05-05] MEDS: INSULIN ASPART 100 UNITS/ML 3 ML PEN SC SCH ×4 (08:31→20:11)
[2019-05-05] MEDS: INSULIN GLARGINE SOLOSTAR 100 UNITS/ML 3 ML PEN SC SCH ×2 (08:32→20:11)
[2019-05-05] MEDS: ASPIRIN 81 MG ECTAB PO SCH (08:32)
[2019-05-05] MEDS: FENOFIBRATE NANOCRYSTALLIZED 145 MG TABLET PO SCH (08:32)
[2019-05-05] MEDS: LOSARTAN POTASSIUM 50 MG TAB PO SCH (08:32)
[2019-05-05] MEDS: DOCUSATE SODIUM 100 MG CAP PO SCH (08:33)
[2019-05-05] MEDS: CHOLECALCIFEROL 1,000 UNITS TAB PO SCH (08:33)
--- NOTE | 2019-05-05 13:09 | Hospitalist Progress Note ---
Date of Service May 05, 2019 Assessment & Plan (1) Febrile illness, acute: Presented with high fever, aches and pains all over the body and anorexia Seems to be viral UA and chest x-ray are unremarkable Started with intravenous Zosyn empirically Zosyn has been discontinued and started on oral Keflex Blood cultures have been negative but urine culture is pending Facial and lower abdominal erythema Could be secondary to viral illness and/or side effect of antibiotic Zosyn has been discontinued (2) Sepsis: Possible sepsis on admission Await blood cultures-negative White count is normalized and hemodynamically stable Sepsis ruled out (3) DM (diabetes mellitus): Continue sliding-scale (4) HTN (hypertension): Blood pressure seems to be under control Advised more fluid intake Increase ambulation Await urine culture Likely discharge tomorrow Subjective 05/04 The patient was seen and examined in Telemetry unit She was admitted with high fever, body aches and generalized weakness Has a fever this morning as well Denies any significant other symptoms 05/05 Patient was seen and examined in medical floor She has been complaining of flushed facies and also erythematous area in the lower abdomen Denies any fever and/or chills Worried that she may have reaction secondary to antibiotic Review of Systems Review of Systems: All systems reviewed and are unremarkable except as noted below Constitutional: + body aches Generalized weakness has improved Integumentary: Facial erythema with increased local temperature, likely secondary to side effect of antibiotic/fever Physical Exam Physical Exam: Lying in bed comfortably Constitutional: well developed, well nourished and + morbidly obese; no acute distress Eyes: PERRL, conjunctivae normal, anicteric sclerae ENMT: external ear and nose normal, oropharynx normal Neck: trachea midline, no thyromegaly Respiratory: normal respiratory effort Auscultation: + diminished lung sounds (Due to body habitus) Cardiovascular: Rate/Rhythm: regular rate and regular rhythm Heart Sounds: no murmur Gastrointestinal (Abdomen): Inspection/Auscultation: + abdomen distended Percussion/Palpation: abdomen soft Musculoskeletal: No acute arthritis in any joints Skin: Minimal erythema involving the face and the lower abdomen. Doubt any spreading cellulitis Neurologic: PERRL, EOMI, accommodation nl, no face palsy, no dysarthria Lymphatic: no cervical or axillary lymphadenopathy Results & Data Vital Signs (Past 12 Hours) Vital Signs Temp Pulse Resp BP Pulse Ox 05/05/19 07:47 37 C 81 16 145/83 H 97 05/05/19 00:00 36.7 C 85 20 135/82 94 Laboratory Results Short CBC 05/05/19 Range/Units 05:08 WBC 4.32 L (4.8-10.8) K/uL Hgb 10.5 L (12.0-16.0) g/dL Hct 32.4 L (37-47) % Plt Count 198 (130-400) K/uL BMP 05/05/19 05:08 Sodium 136 Potassium 3.9 Chloride 107 Carbon Dioxide 23 BUN 15 Creatinine 1.18 Glucose 133 H Calcium 8.2 L Medications Administered Current Inpatient Medications Acetaminophen (Tylenol) 650 mg PO Q4H PRN PRN Reason: Pain or Fever Stop: 06/03/19 04:00 Last Admin: 05/04/19 21:58 Dose: 650 mg Documented by: Amitriptyline HCl (Elavil) 100 mg PO HS [facility] Stop: 06/03/19 20:59 Last Admin: 05/04/19 21:05 Dose: 100 mg Documented by: Aspirin (Ecotrin Ectab) 81 mg PO DAILY [facility] Stop: 06/03/19 08:59 Last Admin: 05/05/19 08:32 Dose: 81 mg Documented by: Cephalexin HCl (Keflex) 500 mg PO TID [facility]; Protocol Stop: 05/10/19 13:59 Docusate Sodium (Colace) 200 mg PO DAILY [facility] Stop: 06/03/19 08:59 Last Admin: 05/05/19 08:33 Dose: 200 mg Documented by: Fenofibrate (Tricor) 145 mg PO DAILY [facility] Stop: 06/03/19 08:59 Last Admin: 05/05/19 08:32 Dose: 145 mg Documented by: Heparin Sodium (Porcine) (Heparin Sodium (Porcine)) 5,000 units SQ Q8 [facility] Stop: 06/03/19 05:59 Last Admin: 05/05/19 05:59 Dose: 5,000 units Documented by: Sodium Chloride (Nss 1000ml) 1,000 mls @ 125 mls/hr IV .Q8H [facility] Stop: 06/03/19 04:00 Last Admin: 05/05/19 05:18 Dose: 125 mls/hr Documented by: Insulin Aspart (Novolog Flexpen) 0 units SC ACHS [facility] Stop: 06/03/19 07:29 Last Admin: 05/05/19 12:15 Dose: 19 units Documented by: Insulin Glargine (Lantus Solostar Pen) 50 units SC BID [facility] Stop: 06/03/19 08:59 Last Admin: 05/05/19 08:32 Dose: 50 units Documented by: Levothyroxine Sodium (Synthroid) 150 mcg PO DAILYBB [facility] Stop: 06/03/19 06:29 Last Admin: 05/05/19 06:01 Dose: 150 mcg Documented by: Losartan Potassium (Cozaar) 100 mg PO DAILY [facility] Stop: 06/03/19 08:59 Last Admin: 05/05/19 08:32 Dose: 100 mg Documented by: Miconazole Nitrate (Desenex) 1 appln EXT PRN PRN PRN Reason: Affected Skin Folds Stop: 06/03/19 19:06 Miscellaneous Information (Consult Glycemic Management Pharmacy) 1 ea N/A UD PRN PRN Reason: Consult Stop: 06/03/19 04:38 Morphine Sulfate (Morphine Sulfate) 3 mg IV Q4H PRN PRN Reason: Pain Stop: 05/18/19 04:00 Last Admin: 05/04/19 16:41 Dose: 3 mg Documented by: Nitroglycerin (Nitrostat) 0.4 mg SL UD PRN PRN Reason: Chest Pain Stop: 06/03/19 04:00 Ondansetron HCl (Zofran) 4 mg IV Q6H PRN PRN Reason: Nausea Stop: 06/03/19 04:00 Last Admin: 05/04/19 14:16 Dose: 4 mg Documented by: Polyethylene Glycol (Miralax Powder Packet) 17 gm PO DAILY PRN PRN Reason: Constipation Stop: 06/03/19 04:00 Simvastatin (Zocor) 20 mg PO PM [facility] Stop: 06/03/19 20:59 Last Admin: 05/04/19 21:05 Dose: 20 mg Documented by: Tramadol HCl (Ultram) 50 mg PO Q4H PRN PRN Reason: Pain Stop: 06/03/19 22:11 Last Admin: 05/05/19 02:50 Dose: 50 mg Documented by: Vitamin D (Vitamin D3) 5,000 units PO DAILY [facility] Stop: 06/03/19 08:59 Last Admin: 05/05/19 08:33 Dose: 5,000 units Documented by: (1) Sepsis Sepsis type: sepsis due to unspecified organism Qualified Code(s): A41.9 - Sepsis, unspecified organism
[2019-05-05] MEDS ORDERED: CARBOHYDRATES FOR HYPOGLYCEMIA PO PRN (13:30)
[2019-05-05] MEDS ORDERED: DEXTROSE 50% 50 ML SYRINGE IV PRN (13:30)
[2019-05-05] MEDS ORDERED: GLUCOSE 40% GEL 15 GM TUBE PO PRN (13:30)
[2019-05-05] MEDS ORDERED: GLUCOSE 10 TABS/TUBE PO PRN (13:30)
[2019-05-05] MEDS ORDERED: GLUCAGON FOR INJ 1 MG VIAL IM PRN (13:30)
[2019-05-05] MEDS: ACETAMINOPHEN 325 MG TAB PO PRN (13:41)
[2019-05-05] MEDS: cephALEXin 500 MG CAP PO SCH ×2 (13:41→20:10)
[2019-05-05] MEDS: SIMVASTATIN 20 MG TAB PO SCH (20:10)
[2019-05-05] MEDS: AMITRIPTYLINE HCL 100 MG TAB PO SCH (20:10)
[2019-05-06] MEDS: TRAMADOL HCL 50 MG TABLET PO PRN (00:20)
[2019-05-06] MEDS: LEVOTHYROXINE SODIUM 150 MCG TABLET PO SCH (06:30)
[2019-05-06] MEDS: HEPARIN SOD 5,000 UNIT/0.5 ML VIAL SQ SCH ×2 (06:31→13:04)
[2019-05-06] MEDS ORDERED: FLUCONAZOLE 50 MG TAB PO ONE (08:05)
[2019-05-06] MEDS ORDERED: INSULIN GLARGINE SOLOSTAR 100 UNITS/ML 3 ML PEN SC SCH (09:00)
[2019-05-06] MEDS: LOSARTAN POTASSIUM 50 MG TAB PO SCH (09:32)
[2019-05-06] MEDS: CHOLECALCIFEROL 1,000 UNITS TAB PO SCH (09:32)
[2019-05-06] MEDS: FENOFIBRATE NANOCRYSTALLIZED 145 MG TABLET PO SCH (09:33)
[2019-05-06] MEDS: ASPIRIN 81 MG ECTAB PO SCH (09:33)
[2019-05-06] MEDS: cephALEXin 500 MG CAP PO SCH ×2 (09:33→13:04)
[2019-05-06] MEDS: INSULIN ASPART 100 UNITS/ML 3 ML PEN SC SCH ×2 (09:38→12:44)
[2019-05-06] MEDS: DOCUSATE SODIUM 100 MG CAP PO SCH (10:03)
[2019-05-06] MEDS: INSULIN GLARGINE SOLOSTAR 100 UNITS/ML 3 ML PEN SC SCH (10:15)
--- NOTE | 2019-05-06 11:00 | Hospitalist Progress Note ---
Date of Service May 06, 2019 Assessment & Plan (1) Febrile illness, acute: Presented with high fever, aches and pains all over the body and anorexia Seems to be viral UA and chest x-ray are unremarkable Started with intravenous Zosyn empirically Zosyn has been discontinued and started on oral Keflex Blood cultures have been negative but urine culture is is negative Discontinue antibiotic Discharge home today Facial and lower abdominal erythema Could be secondary to viral illness and/or side effect of antibiotic Zosyn has been discontinued The erythematous lesions of face and lower abdomen are gone Back pain Tylenol does not We will try tramadol for a very very short course of a day or 2 (2) Sepsis: Possible sepsis on admission Await blood cultures-negative White count is normalized and hemodynamically stable Sepsis ruled out (3) DM (diabetes mellitus): Continue sliding-scale (4) HTN (hypertension): Blood pressure seems to be under control Advised more fluid intake Increase ambulation Discharge this afternoon Subjective 05/04 The patient was seen and examined in Telemetry unit She was admitted with high fever, body aches and generalized weakness Has a fever this morning as well Denies any significant other symptoms 05/05 Patient was seen and examined in medical floor She has been complaining of flushed facies and also erythematous area in the lower abdomen Denies any fever and/or chills Worried that she may have reaction secondary to antibiotic 05/06 The patient was seen and examined in medical floor She complains to have some pain at the back and also in the groin area Denies any fever and chills the redness of the face in the lower abdomen are gone She will be going home this afternoon Review of Systems Review of Systems: All systems reviewed and are unremarkable except as noted below Constitutional: + body aches Generalized weakness has improved Integumentary: Facial erythema with increased local temperature, likely secondary to side effect of antibiotic/fever Physical Exam Physical Exam: No apparent distress at rest Constitutional: well developed, well nourished and + morbidly obese; no acute distress Eyes: PERRL, conjunctivae normal, anicteric sclerae ENMT: external ear and nose normal, oropharynx normal Neck: trachea midline, no thyromegaly Respiratory: normal respiratory effort Auscultation: + diminished lung sounds (Due to body habitus) Cardiovascular: Rate/Rhythm: regular rate and regular rhythm Heart Sounds: no murmur Gastrointestinal (Abdomen): Inspection/Auscultation: + abdomen distended Percussion/Palpation: abdomen soft Skin: The redness of the face and the lower abdomen are resolved Neurologic: PERRL, EOMI, accommodation nl, no face palsy, no dysarthria Lymphatic: no cervical or axillary lymphadenopathy Results & Data Vital Signs (Past 12 Hours) Vital Signs Temp Pulse Resp BP Pulse Ox 05/06/19 07:22 36.5 C 75 18 127/79 97 05/05/19 23:00 36.7 C 84 20 156/85 H 97 Laboratory Results Urine culture has been negative Medications Administered Current Inpatient Medications Acetaminophen (Tylenol) 650 mg PO Q4H PRN PRN Reason: Pain or Fever Stop: 06/03/19 04:00 Last Admin: 05/05/19 13:41 Dose: 650 mg Documented by: Amitriptyline HCl (Elavil) 100 mg PO HS [facility] Stop: 06/03/19 20:59 Last Admin: 05/05/19 20:10 Dose: 100 mg Documented by: Aspirin (Ecotrin Ectab) 81 mg PO DAILY [facility] Stop: 06/03/19 08:59 Last Admin: 05/06/19 09:33 Dose: 81 mg Documented by: Cephalexin HCl (Keflex) 500 mg PO TID [facility]; Protocol Stop: 05/10/19 13:59 Last Admin: 05/06/19 09:33 Dose: 500 mg Documented by: Dextrose (Dextrose 50%) 25 - 50 ml IV UD PRN; Protocol PRN Reason: Hypoglycemia Protocol Stop: 06/04/19 13:29 Docusate Sodium (Colace) 200 mg PO DAILY [facility] Stop: 06/03/19 08:59 Last Admin: 05/06/19 10:03 Dose: 200 mg Documented by: Fenofibrate (Tricor) 145 mg PO DAILY [facility] Stop: 06/03/19 08:59 Last Admin: 05/06/19 09:33 Dose: 145 mg Documented by: Glucagon (Glucagen) 1 mg IM UD PRN; Protocol PRN Reason: Hypoglycemia Protocol Stop: 06/04/19 13:29 Glucose (Glucose 40%) 15 - 30 gm PO UD PRN; Protocol PRN Reason: Hypoglycemia Protocol Stop: 06/04/19 13:29 Glucose (Dex4 Glucose) 4 - 8 tabs PO UD PRN; Protocol PRN Reason: Hypoglycemia Protocol Stop: 06/04/19 13:29 Heparin Sodium (Porcine) (Heparin Sodium (Porcine)) 5,000 units SQ Q8 [facility] Stop: 06/03/19 05:59 Last Admin: 05/06/19 06:31 Dose: 5,000 units Documented by: Insulin Aspart (Novolog Flexpen) 0 units SC ACHS [facility] Stop: 06/03/19 07:29 Last Admin: 05/06/19 09:38 Dose: 17 units Documented by: Insulin Glargine (Lantus Solostar Pen) 45 units SC BID [facility] Stop: 06/05/19 08:59 Last Admin: 05/06/19 09:39 Dose: 45 units Documented by: Levothyroxine Sodium (Synthroid) 150 mcg PO DAILYBB [facility] Stop: 06/03/19 06:29 Last Admin: 05/06/19 06:30 Dose: 150 mcg Documented by: Losartan Potassium (Cozaar) 100 mg PO DAILY [facility] Stop: 06/03/19 08:59 Last Admin: 05/06/19 09:32 Dose: 100 mg Documented by: Miconazole Nitrate (Desenex) 1 appln EXT PRN PRN PRN Reason: Affected Skin Folds Stop: 06/03/19 19:06 Miscellaneous (Carbohydrates For Hypoglycemia) 15 - 30 gm PO UD PRN PRN Reason: Hypoglycemia Treatment Stop: 06/04/19 13:29 Miscellaneous Information (Consult Glycemic Management Pharmacy) 1 ea N/A UD PRN PRN Reason: Consult Stop: 06/03/19 04:38 Morphine Sulfate (Morphine Sulfate) 3 mg IV Q4H PRN PRN Reason: Pain Stop: 05/18/19 04:00 Last Admin: 05/04/19 16:41 Dose: 3 mg Documented by: Nitroglycerin (Nitrostat) 0.4 mg SL UD PRN PRN Reason: Chest Pain Stop: 06/03/19 04:00 Polyethylene Glycol (Miralax Powder Packet) 17 gm PO DAILY PRN PRN Reason: Constipation Stop: 06/03/19 04:00 Last Admin: 05/05/19 15:56 Dose: 17 gm Documented by: Simvastatin (Zocor) 20 mg PO PM [facility] Stop: 06/03/19 20:59 Last Admin: 05/05/19 20:10 Dose: 20 mg Documented by: Tramadol HCl (Ultram) 50 mg PO Q4H PRN PRN Reason: Pain Stop: 06/03/19 22:11 Last Admin: 05/06/19 00:20 Dose: 50 mg Documented by: Vitamin D (Vitamin D3) 5,000 units PO DAILY [facility] Stop: 06/03/19 08:59 Last Admin: 05/06/19 09:32 Dose: 5,000 units Documented by: (1) Sepsis Sepsis type: sepsis due to unspecified organism Qualified Code(s): A41.9 - Sepsis, unspecified organism
--- NOTE | 2019-05-07 07:52 | Discharge Summary ---
Date of Service May 07, 2019 Admission HPI Per Admitting Provider DICTATED BY: Miguel Angel Cowan MD DATE OF ADMISSION: 05/04/2019 CHIEF COMPLAINT: Not feeling well, fever. HISTORY OF PRESENT ILLNESS: This is a 48-year-old female with past medical history significant for type 2 diabetes, hypothyroidism, hypertension, morbid obesity, history of small-bowel obstruction, ventral hernia, presents with not feeling well since yesterday. The patient says since yesterday, she was feeling cold and chilly, then she developed some fever, whole body ache. Left side of chest hurts and left side of body hurts, some back pain, weakness, having difficulty ambulating, poor appetite, headaches, some blurred vision, so she came to the hospital. She had temp spike in the ER and elevated white count, but no obvious source of infection identified so far. The point of the lactic acid was slightly high at 2.1. The patient was nauseous, no vomiting. Normal bowel and bladder movements. No blood in the stools, no black stools. States she has some mild burning micturition, but no hematuria. No swelling in the legs, no rash. Admission Exam Per Admitting Provider GENERAL: The patient is morbidly obese, not in acute distress. VITAL SIGNS: T-max 38.4, pulse 101, respiratory rate 19, blood pressure 103/57, oxygen 96% room air. HEENT: No pallor, no icterus. Pupils equal, round, and reactive to light. NECK: No JVD, no neck masses, no carotid bruits. CARDIOVASCULAR: S1, S2 heard, regular rate and rhythm, no murmur, no gallop. RESPIRATORY SYSTEM: Normal AP diameter. No accessory muscle use. No wheezing, no crackles. ABDOMEN: Soft, bowel sounds present, nontender. No distention. CENTRAL NERVOUS SYSTEM: Cranial nerves II-XII grossly intact. Nonfocal. EXTREMITIES: No edema, no erythema. Principal Diagnosis Viral syndrome, UTI has been ruled out Discharge Exam Constitutional well developed, well nourished and + morbidly obese; no acute distress Eyes PERRL, conjunctivae normal, anicteric sclerae ENMT external ear and nose normal, oropharynx normal Neck trachea midline, no thyromegaly Respiratory normal respiratory effort Auscultation: + diminished lung sounds (Due to body habitus) Cardiovascular Rate/Rhythm: regular rate and regular rhythm Heart Sounds: no murmur Gastrointestinal (Abdomen) Inspection/Auscultation: + abdomen distended Percussion/Palpation: abdomen soft Neurologic PERRL, EOMI, accommodation nl, no face palsy, no dysarthria Lymphatic no cervical or axillary lymphadenopathy Discharge Data Allergies Allergy/AdvReac Type Severity Reaction Status Date / Time pramipexole Allergy Intermediate Vomiting Verified 05/03/19 23:08 Consultations 05/04/19 01:31 ED Decision to Admit Stat Ordered Studies 05/03/19 23:34 CT abd pelvis IV con only Stat Hospital Course (1) Febrile illness, acute: Presented with high fever, aches and pains all over the body and anorexia Seems to be viral UA and chest x-ray are unremarkable Started with intravenous Zosyn empirically Zosyn has been discontinued and started on oral Keflex Blood cultures have been negative but urine culture is is negative Discontinue antibiotic Discharge home today Facial and lower abdominal erythema Could be secondary to viral illness and/or side effect of antibiotic Zosyn has been discontinued The erythematous lesions of face and lower abdomen are gone Back pain Tylenol does not We will try tramadol for a very very short course of a day or 2 (2) Sepsis: Possible sepsis on admission Await blood cultures-negative White count is normalized and hemodynamically stable Sepsis ruled out (3) DM (diabetes mellitus): Continue sliding-scale (4) HTN (hypertension): Blood pressure seems to be under control Advised more fluid intake Increase ambulation Discharge this afternoon Total Time Total Time Spent Total Time Spent (In Minutes): 35 minutes Total Time Includes: Examination of the Patient, Discharge Planning, Medication Reconciliation and Communication With Other Providers Discharge Plan Discharge Items Patient Disposition: Home - Self-Care Reason For Visit: FEVER, ILLNESS Discharge Diagnosis: Viral syndrome, UTI has been ruled out Condition: Fair Discharge Goals: Decrease discomfort, Improve function and Increase independence Activity: Resume your previous activity Non-emergency contact: Primary Care Provider Call non-emergency contact if: you have any medication questions and your symptoms worsen Follow-up/Referrals: Mihai Tanner DO [Primary Care Provider] - (Your doctor's office will call with an appointment within 7 days) Diet: Carb Consistent or DM2 and Heart Healthy Addtl Provider Instructions: Is try to drink more fluid No change in her current medical Can try ibuprofen for pain control Prescriptions: Continued aspirin 81 mg Tablet,Delayed Release (Dr/Ec) 81 mg PO DAILY RF: 0 simvastatin 20 mg Tablet 20 mg PO PM RF: 0 metformin 1,000 mg tablet 1,000 mg PO BID RF: 0 levothyroxine 150 mcg Tablet 150 mcg PO DAILY RF: 0 docusate sodium [Colace] 100 mg Capsule 200 mg PO DAILY RF: 0 triamterene-hydrochlorothiazid 37.5-25 mg Tablet 1 tab PO DAILY RF: 0 polyethylene glycol 3350 [Miralax] 17 gram/dose Powder 17 g PO DAILY PRN (Reason: Constipation) RF: 0 losartan 100 mg tablet 100 mg PO DAILY RF: 0 amitriptyline 100 mg Tablet 100 mg PO HS RF: 0 fenofibrate nanocrystallized 145 mg Tablet 145 mg PO DAILY RF: 0 cholecalciferol (vitamin D3) [Vitamin D3] 5,000 unit Tablet 5,000 unit PO DAILY RF: 0 Victoza 2-Mc 0.6 mg/0.1 mL (18 mg/3 mL) Pen Injector 1.2 mg SUBCUT QAM RF: 0 Toujeo Max U-300 SoloStar 300 unit/mL (3 mL) Insulin Pen 125 unit SUBCUT AMPM RF: 0 Novolog Flexpen U-100 Insulin 100 unit/mL (3 mL) insulin pen SUBCUT AC RF: 0 Stand-Alone Forms: [facility]/Other Patient Handouts: Diabetes Longterm Complications, Hyperglycemia, Hypoglycemia, Diabetes Type 2 Coping, Diabetes Healthy Meals, Diabetes Carbs, Diabetes Eating Out, Diabetes Exercise Get Started, Diabetes Activity Tips Discharge Orders: Discharge Order (Routine); Ordered 05/06/19 Ordered By: Wilton Grimm Admission Data Admit Date/Time: 05/04/19 02:28 Attending Provider: Wilton Grimm Admit Provider: Miguel Angel Cowan Primary Care Provider: Mihai Tanner Other Providers: Miguel Angel Cowan Service: Medical Other Interventions: Discharge Summary Assessment (RN) Last Done: 05/06/19 11:39 DC Date/Time DO NOT enter until pt leaves facility: 05/06/19 14:13
== END 2019-05-06 14:13 | disposition home or self-care (01) | DRG 866 ==
LOC: ED 22:08 → 2S 05-04 02:28 → 2N 05-04 16:56

== ENCOUNTER 2021-08-19 19:10 | Inpatient (IN) ==
[2021-08-19] MEDS ORDERED: dexAMETHasone**PF** 10 MG/ML VIAL IV ONE (19:29)
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
[2021-08-19 20:09] LABS: iSTAT Arterial Blood Gas HCO3 24 meg/L (19-24); iSTAT Arterial Blood Gas pCO2 34 mmHg (35-46); iSTAT Arterial Blood Gas pH 7.45 (7.35-7.45); iSTAT Arterial Blood Gas pO2 102 mmHg (80-95); iSTAT Carbon Dioxide 25 mmol/L (24-31); iSTAT Hematocrit 36 % (37-47); iSTAT Hemoglobin 12.2 g/dl (12.0-16.0); iSTAT Potassium 5.1 mmol/L (3.3-5.0); iSTAT Sodium 136 mmol/L (135-144)
[2021-08-19 20:29] LABS: Appearance Urine Clear (Clear); Bacteria Urine Automated Negative (Negative); Bilirubin Urine Negative (Negative); Blood Urine Trace (Negative); Color Urine Dark Yellow; Epithelial Cell Urine Auto 20-30 /lpf (0-5); Glucose Urine UA 2+ (Negative); Ketones Urine Trace (Negative); Leukocyte Esterase Urine Negative (Negative); Nitrite Urine Negative (Negative); Protein Urine 3+ (Negative); Specific Gravity Urine 1.027 (1.000-1.030); Urobilinogen Urine Negative (Negative); pH Urine 5.5 (4.5-7.5)
[2021-08-19 20:33] LABS: Hemoglobin 11.4 g/dL (12.0-16.0); Immature Granulocytes # (auto) 0.06 K/uL (0.00-0.02); Immature Granulocytes % (auto) 0.8 %; Lymphocytes # (auto) 0.55 K/uL (1.2-3.4); Lymphocytes % (auto) 7.3 %; Mean Corpuscular Hemoglobin 30.4 pg (25-34); Mean Corpuscular Hgb Conc 33.5 g/dL (32-36); Mean Corpuscular Volume 90.7 fL (80-100); Mean Platelet Volume 10.4 fL (7.4-10.4); Monocytes # (auto) 0.21 K/uL (0.11-0.59); Monocytes % (auto) 2.8 %; Neutrophils # (auto) 6.71 K/uL (1.4-6.5); Neutrophils % (auto) 89.1 %; Platelet Count 371 K/uL (130-400); RDW Coefficient of Variation 15.2 % (11.5-14.5); RDW Standard Deviation 50.9 fL (36.4-46.3); Red Blood Count 3.75 M/uL (4.2-5.4); White Blood Count 7.53 K/uL (4.8-10.8)
[2021-08-19] MEDS ORDERED: IPRATROPIUM BROMIDE NEB SOLN 0.02% 2.5 ML VIAL INH STA (20:46)
[2021-08-19] MEDS ORDERED: XOPENEX/ATROVENT 1.25mg/0.5MG NEB COMBO NEB STA (20:46)
[2021-08-19] MEDS ORDERED: LEVALBUTEROL 1.25MG/0.5ML NEB INH STA (20:47)
[2021-08-19 20:49] LABS: Partial Thromboplastin Ratio 0.9; Partial Thromboplastin Time 22.8 Seconds (21.0-31.0); Prothrombin Time 10.4 Seconds (9.0-12.0)
--- NOTE | 2021-08-19 20:55 | XRay Report ---
SINGLE VIEW CHEST CLINICAL HISTORY: Sepsis.. FINDINGS: An AP, portable, upright chest radiograph is compared to study dated 05/03/2019. The heart i s top normal for projection. Multifocal airspace consolidation is seen throughout both lungs. No larg e pleural effusion is identified. There is no pneumothorax. The bony thorax is grossly intact. IMPRESSION: Extensive multifocal airspace consolidation is typical for pneumonia. Clinical correlatio n will be required and radiographic follow-up to resolution is recommended. ACT 112: Negative or not required by law. Electronically signed by: Kevin Moran M.D. 08/19/2021 8:54 PM
[2021-08-19 21:02] LABS: Albumin Globulin Ratio 0.3 (0.9-2); Albumin Level 2.1 gm/dl (3.4-5.0); BUN Creatinine Ratio 28.4 (10-20); Bilirubin,Total 0.6 mg/dl (0.2-1); Calcium 10.3 mg/dl (8.5-10.1); Est GFR (African American) 53.2 ml/min; Est GFR (Non-African American) 45.9 ml/min; Globulin 6.3 gm/dl (2.5-4.0); Total Protein 8.4 gm/dl (6.4-8.2); Troponin I 0.117 ng/ml (0-0.045)
[2021-08-19 21:17] LABS: Beta-Hydroxybutyrate 7.74 mg/dl (0.2-2.81)
[2021-08-19] MEDS ORDERED: METOPROLOL TARTRATE 1 MG/ML VIAL IV STA (21:32)
[2021-08-19] MEDS ORDERED: SODIUM CHLORIDE 0.9% 1000ML 1,000 ML IV ONE (21:34)
[2021-08-19] MEDS ORDERED: INSULIN GLARGINE SOLOSTAR 100 UNITS/ML 3 ML PEN SC STA ×2 (21:35→21:49)
[2021-08-19] MEDS ORDERED: LANTUS PER UNIT CHARGE SQ STA (21:43)
[2021-08-19] MEDS ORDERED: REMDESIVIR 200 MG in SODIUM CHLORIDE 0.9% 210 ML IV STA (22:11)
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
[2021-08-19] MEDS ORDERED: SODIUM CHLORIDE 0.9% 10ML FLUSH IV SCH (22:15)
[2021-08-20] MEDS ORDERED: GLUCOSE 40% GEL 15 GM TUBE PO PRN ×2 (00:04→05:30)
[2021-08-20] MEDS ORDERED: PROMETHAZINE HCL 12.5 MG in SODIUM CHLORIDE 0.9% 50 ML IV PRN (00:04)
[2021-08-20] MEDS ORDERED: CARBOHYDRATES FOR HYPOGLYCEMIA PO PRN ×2 (00:04→05:30)
[2021-08-20] MEDS ORDERED: IPRATROPIUM BROMIDE NEB SOLN 0.02% 2.5 ML VIAL INH PRN (00:04)
[2021-08-20] MEDS ORDERED: DEXTROSE 50% 50 ML SYRINGE IV PRN ×2 (00:04→05:30)
[2021-08-20] MEDS ORDERED: GLUCOSE 10 TABS/TUBE PO PRN ×2 (00:04→05:30)
[2021-08-20] MEDS ORDERED: LEVALBUTEROL 1.25MG/0.5ML NEB INH PRN (00:04)
[2021-08-20] MEDS ORDERED: GLUCAGON FOR INJ 1 MG VIAL SQ PRN (00:04)
[2021-08-20] MEDS ORDERED: XOPENEX/ATROVENT 1.25mg/0.5MG NEB COMBO NEB PRN (00:04)
[2021-08-20] MEDS ORDERED: INSULIN ASPART 100 UNITS/ML 3 ML PEN SC SCH ×2 (00:04→05:00)
[2021-08-20] MEDS ORDERED: SODIUM CHLORIDE 0.9% 1000ML 1,000 ML IV ONE (00:04)
[2021-08-20 00:05] LABS: Troponin I 0.198 ng/ml (0-0.045)
[2021-08-20] MEDS ORDERED: PNEUMOCOCCAL POLYSACCHARIDES 25 MCG/0.5 ML VIAL/SYR IM ONE (00:33)
[2021-08-20] MEDS ORDERED: METOPROLOL TARTRATE 1 MG/ML VIAL IV STA ×2 (00:40→03:58)
[2021-08-20] MEDS ORDERED: INSULIN GLARGINE SOLOSTAR 100 UNITS/ML 3 ML PEN SC STA ×2 (01:04)
[2021-08-20] MEDS: SODIUM CHLORIDE 0.9% 10ML FLUSH IV SCH (02:35)
[2021-08-20 02:56] LABS: Thyroid Stimulating Hormone 0.796 uIu/ml (0.300-4.500)
[2021-08-20] MEDS ORDERED: XOPENEX/ATROVENT 1.25mg/0.5MG NEB COMBO NEB STA (03:58)
[2021-08-20] MEDS ORDERED: IPRATROPIUM BROMIDE NEB SOLN 0.02% 2.5 ML VIAL INH STA (04:05)
[2021-08-20] MEDS ORDERED: LEVALBUTEROL 1.25MG/0.5ML NEB INH STA (04:06)
[2021-08-20] MEDS ORDERED: INSULIN PROTOCOL GOAL RANGE ONE (05:17)
[2021-08-20] MEDS ORDERED: SEVERE STRESS LEVEL ONE (05:17)
[2021-08-20] MEDS ORDERED: STAT IV Infusion **Titration per Protocol STA (05:17)
[2021-08-20] MEDS ORDERED: GLUCAGON FOR INJ 1 MG VIAL IM PRN (05:30)
[2021-08-20] MEDS ORDERED: INSULIN HUMAN REGULAR BOLUS IV ONE (06:00)
[2021-08-20] MEDS: HEPARIN SOD 5,000 UNIT/0.5 ML VIAL SQ SCH ×3 (06:16→21:01)
[2021-08-20] MEDS: INSULIN REGULAR 250 UNITS in SODIUM CHLORIDE 0.9% 247.5 ML IV SCH (06:21)
[2021-08-20 06:52] LABS: Hematocrit (blood only) 35.4 % (37-47); Hemoglobin 11.4 g/dL (12.0-16.0); Mean Corpuscular Hemoglobin 29.8 pg (25-34); Mean Corpuscular Hgb Conc 32.2 g/dL (32-36); Mean Corpuscular Volume 92.7 fL (80-100); Mean Platelet Volume 10.7 fL (7.4-10.4); Platelet Count 281 K/uL (130-400); RDW Coefficient of Variation 15.3 % (11.5-14.5); RDW Standard Deviation 52.1 fL (36.4-46.3); Red Blood Count 3.82 M/uL (4.2-5.4); White Blood Count 6.36 K/uL (4.8-10.8)
[2021-08-20 07:01] LABS: Partial Thromboplastin Ratio 0.9; Partial Thromboplastin Time 23.7 Seconds (21.0-31.0)
[2021-08-20 07:19] LABS: Basophils # (auto) 0.01 K/uL (0-0.2); Basophils % (auto) 0.2 %; Immature Granulocytes # (auto) 0.07 K/uL (0.00-0.02); Immature Granulocytes % (auto) 1.1 %; Lymphocytes # (auto) 0.38 K/uL (1.2-3.4); Monocytes # (auto) 0.07 K/uL (0.11-0.59); Monocytes % (auto) 1.1 %; Neutrophils # (auto) 5.83 K/uL (1.4-6.5); Neutrophils % (auto) 91.6 %; RBC Morphology Unremarkable
[2021-08-20] MEDS: LEVOTHYROXINE SODIUM 150 MCG TABLET PO SCH (07:21)
[2021-08-20 07:29] LABS: Albumin Globulin Ratio 0.3 (0.9-2); BUN Creatinine Ratio 31.9 (10-20); Bilirubin,Total 0.5 mg/dl (0.2-1); C Reactive Protein 14.8 mg/dl (0-0.29); Calcium 9.5 mg/dl (8.5-10.1); Est GFR (African American) 58.9 ml/min; Est GFR (Non-African American) 50.8 ml/min; Globulin 6.1 gm/dl (2.5-4.0); Potassium 4.6 mmol/L (3.5-5.1); Total Protein 8.1 gm/dl (6.4-8.2); Troponin I 0.188 ng/ml (0-0.045)
[2021-08-20 07:48] LABS: Beta-Hydroxybutyrate 6.32 mg/dl (0.2-2.81)
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
[2021-08-20] MEDS ORDERED: INSULIN GLARGINE SOLOSTAR 100 UNITS/ML 3 ML PEN SC SCH (09:00)
[2021-08-20] MEDS ORDERED: dexAMETHasone 6 MG in SYRINGE 0 ML IV SCH (09:00)
[2021-08-20] MEDS: dexAMETHasone 6 MG in SYRINGE 0 ML IV SCH (09:19)
[2021-08-20] MEDS: INSULIN ASPART 100 UNITS/ML 3 ML PEN SC SCH ×4 (09:24→21:44)
[2021-08-20] MEDS: ASPIRIN 81 MG ECTAB PO SCH (10:58)
[2021-08-20] MEDS: CYANOCOBALAMIN 500 MCG TABLET (VITAMIN B-12) PO SCH (10:59)
[2021-08-20] MEDS: GABAPENTIN 300 MG CAP PO SCH ×4 (10:59→20:51)
[2021-08-20] MEDS: FENOFIBRATE NANOCRYSTALLIZED 145 MG TABLET PO SCH (11:00)
[2021-08-20] MEDS: PANTOprazole 40 MG TAB PO SCH (11:00)
[2021-08-20] MEDS: 4 mg Once Daily x14 days PO SCH (11:05)
[2021-08-20] MEDS: traMADol HCL 50 MG TABLET PO PRN ×2 (11:27→20:04)
--- NOTE | 2021-08-20 13:30 | Electrocardiogram Report ---
Test Reason : Blood Pressure : / mmHG Vent. Rate : 096 BPM Atrial Rate : 096 BPM P-R Int : 150 ms QRS Dur : 088 ms QT Int : 344 ms P-R-T Axes : 047 052 034 degrees QTc Int : 434 ms Normal sinus rhythm Low voltage QRS Borderline ECG When compared with ECG of 03-MAY-2019 22:37, No significant change was found Confirmed by Jose Antonio Torres ([id number]) on 08/20/2021 1:30:07 PM Referred By: REFERRED SELF Confirmed By:Jose Antonio Torres
[2021-08-20] MEDS: METOPROLOL TARTRATE 1 MG/ML VIAL IV SCH ×3 (13:52→23:15)
--- NOTE | 2021-08-20 14:25 | Hospitalist Progress Note ---
Date of Service August 20, 2021 Assessment & Plan (1) Acute hypoxemic respiratory failure: Plan: Secondary to severe COVID-19 pneumonia Management as below (2) Pneumonia due to 2019-nCoV: Plan: She is fully vaccinated Required BiPAP BiPAP on admission Has been on Decadron and Remdesivir for severe COVID-19 pneumonia. Appreciate pulmonary input and recommendation Did not fulfill the criteria for Tocilizumab but has been started on Baricitinib by the laborer hoisting Has been requiring high flow oxygen to maintain saturation We will keep her on the spray drier operator side and will use Lasix as needed Cough suppressant and oxygen as needed with occasional proningif possible (3) Elevated troponin: Plan: Troponin was elevated up to 0.19 Likely secondary to Covid infection and doubt any ACS Trending down Denies any cardiac symptoms (4) DM (diabetes mellitus): Plan: Recent outpatient hemoglobin A1c 6.16 January 2021 Basal insulin adjusted for n.p.o. status, ISS BG goal 1 10-1 40, update hemoglobin A1c (5) HTN (hypertension): Plan: Hypertension, elevated secondary to anxiety/discomfort Remains on the upper side Holding ARB for increasing creatinine Will start amlodipine to control blood pressure Acute kidney injury ARF on CKD secondary to illness Monitor creatinine/lactic acid response to IVF Appropriate to hold home diuretics and ARB until creatinine back to baseline Initiate amlodipine if with persistent BP elevation while home diuretic/ARB on hold. Plan: Hyperlipidemia On Statin DVT prophylaxis Heparin subcu Full code Patient daughter requesting updates from providers. Ms. Tabatha Mathias, contact #[phone]. Admission and Anticipated Discharge Date Admission Date: August 19, 2021 Subjective 08/20/2021 The patient was seen and examined in telemetry unit and in the Covid room She has not been feeling any better since admission though she is off BiPAP now Has been complaining of cough with shortness of breath Denies any fever and/or chills and no chest pain or palpitation Review of Systems Review of Systems: All systems reviewed and are unremarkable except as noted below Respiratory: Moderate shortness of breath at rest Physical Exam Physical Exam: Sitting at the edge of the bed sitting at the edge of the bed with moderate shortness of breath Constitutional: well developed, well nourished, + ill appearing and + obese Eyes: PERRL, conjunctivae normal, anicteric sclerae ENMT: external ear and nose normal, oropharynx normal Neck: trachea midline, no thyromegaly Respiratory: + respiratory distress, + labored breathing and + cough Auscultation: + diminished lung sounds and + crackles (Minimal crackles at the bases) Cardiovascular: Rate/Rhythm: regular rate and regular rhythm; not tachycardic Heart Sounds: normal S1 and normal S2; no murmur Palpation: normal PMI Extremities: + edema (1+ edema bilaterally) Gastrointestinal (Abdomen): Inspection/Auscultation: + abdomen distended and normal bowel sounds Percussion/Palpation: abdomen soft; abdomen nontender Musculoskeletal: No acute arthritis in any joint Neurologic: Alert, awake and oriented x3 Lymphatic: no cervical or axillary lymphadenopathy Results & Data Results & Data ([facility]) Vital Signs (Past 12 Hours) Vital Signs Temp Pulse Pulse Resp BP BP Pulse Ox 08/20/21 13:52 90 163/92 H 08/20/21 11:34 36.4 C L 90 20 160/96 H 90 08/20/21 10:26 89 26 H 90 08/20/21 07:34 37.0 C 91 H 31 H 161/97 H 93 08/20/21 07:26 91 H 31 H 93 08/20/21 05:21 94 H 164/97 H 08/20/21 05:20 94 H 164/97 H 08/20/21 04:38 98 H 26 H 92 08/20/21 03:24 36.8 C 93 H 32 H 160/95 H 91 08/20/21 03:06 91 H 32 H 92 Laboratory Results Short CBC 08/19/21 08/20/21 Range/Units 20:23 06:40 WBC 7.53 6.36 (4.8-10.8) K/uL Hgb 11.4 L 11.4 L (12.0-16.0) g/dL Hct 34.0 L 35.4 L (37-47) % Plt Count 371 281 (130-400) K/uL BMP 08/19/21 08/20/21 08/20/21 20:23 06:40 06:40 Sodium 135 L Cancelled 137 Potassium 5.0 Cancelled 4.6 Chloride 104 Cancelled 107 Carbon Dioxide Cancelled 21 BUN 39 H Cancelled 40 H Creatinine 1.36 H Cancelled 1.25 H Glucose 334 H* Cancelled 400 H* Calcium 10.3 H Cancelled 9.5 Cardiac Enzymes 08/19/21 08/19/21 08/20/21 Range/Units 20:23 23:17 06:40 Troponin I 0.117 H* 0.198 H* 0.188 H* (0-0.045) ng/ml Liver Function 08/19/21 08/20/21 08/20/21 Range/Units 20:23 06:40 06:40 Total Bilirubin 0.6 Cancelled 0.5 (0.2-1) mg/dl AST 40 H Cancelled 34 (15-37) U/L ALT 24 Cancelled 24 (12-78) U/L Alkaline Phosphatase 74 Cancelled 79 (45-117) U/L Albumin 2.1 L Cancelled 2.0 L (3.4-5.0) gm/dl Urine 08/19/21 Range/Units 20:05 Urine Color Dark Yellow Urine Appearance Clear (Clear) Urine pH 5.5 (4.5-7.5) Ur Specific University 1.027 (1.000-1.030) Urine Protein 3+ H (Negative) Urine Glucose (UA) 2+ H (Negative) Medications Administered Current Inpatient Medications Acetaminophen (Acetaminophen 325 Mg Tab) 650 mg PO Q4H PRN PRN Reason: Pain or Fever Stop: 09/19/21 00:03 Aspirin (Aspirin 81 Mg Ectab) 81 mg PO DAILY STEPHANIE Stop: 09/19/21 08:59 Last Admin: 08/20/21 10:58 Dose: 81 mg Documented by: Atorvastatin Calcium (Atorvastatin 40 Mg Tab) 40 mg PO HS STEPHANIE Stop: 09/19/21 20:59 Baricitinib (4 Mg Once Daily X14 Days) 4 mg PO DAILY STEPHANIE; Protocol Stop: 09/03/21 08:59 Last Admin: 08/20/21 11:05 Dose: 4 mg Documented by: Cyanocobalamin (Cyanocobalamin 500 Mcg Tablet (Vitamin B-12)) 1,000 mcg PO QAM STEPHANIE Stop: 09/19/21 08:59 Last Admin: 08/20/21 10:59 Dose: 1,000 mcg Documented by: Dextrose (Dextrose 50% 50 Ml Syringe) 25 - 50 ml IV UD PRN; Protocol PRN Reason: Hypoglycemia Protocol Stop: 09/19/21 05:29 Duloxetine HCl (Duloxetine Hcl 60 Mg Cap) 60 mg PO HS STEPHANIE Stop: 09/19/21 20:59 Fenofibrate (Fenofibrate Nanocrystallized 145 Mg Tablet) 145 mg PO QAM STEPHANIE Stop: 09/19/21 08:59 Last Admin: 08/20/21 11:00 Dose: 145 mg Documented by: Gabapentin (Gabapentin 300 Mg Cap) 300 mg PO QID STEPHANIE Stop: 09/19/21 08:59 Last Admin: 08/20/21 12:54 Dose: 300 mg Documented by: Glucagon (Glucagon For Inj 1 Mg Vial) 1 mg IM UD PRN; Protocol PRN Reason: Hypoglycemia Protocol Stop: 09/19/21 05:29 Glucose (Glucose 40% Gel 15 Gm Tube) 15 - 30 gm PO UD PRN; Protocol PRN Reason: Hypoglycemia Protocol Stop: 09/19/21 05:29 Glucose (Glucose 10 Tabs/Tube) 4 - 8 tabs PO UD PRN; Protocol PRN Reason: Hypoglycemia Protocol Stop: 09/19/21 05:29 Heparin Sodium (Porcine) (Heparin Sod 5,000 Unit/0.5 Ml Vial) 5,000 units SQ Q8 STEPHANIE Stop: 09/19/21 05:59 Last Admin: 08/20/21 13:52 Dose: 5,000 units Documented by: Promethazine HCl 12.5 mg/ (Sodium Chloride) 50.5 mls @ 202 mls/hr IV Q6H PRN PRN Reason: Nausea And Vomiting Stop: 09/19/21 00:03 Sodium Chloride (Nss 1000ml) 1,000 mls @ 60 mls/hr IV .[id number] ONE Stop: 08/20/21 16:43 Last Admin: 08/20/21 01:06 Dose: 60 mls/hr Documented by: Remdesivir 100 mg/ Sodium (Chloride) 250 mls @ 250 mls/hr IV Q24H STEPHANIE; Protocol Stop: 08/23/21 20:59 Insulin Human Regular 250 (units/ Sodium Chloride) 250 mls @ 9.6 mls/hr IV .Q24H STEPHANIE; Protocol Stop: 09/19/21 05:29 Last Titration: 08/20/21 10:05 Dose: 9.6 units/hr, 9.6 mls/hr Documented by: Sodium Chloride (Nss 1000ml) 1,000 mls @ 50 mls/hr IV .Q20H STEPHANIE Stop: 09/19/21 16:44 Dexamethasone 6 mg/ Syringe 1.5 mls @ 1 mls/min IV DAILY STEPHANIE Stop: 09/19/21 06:29 Last Admin: 08/20/21 09:19 Dose: 1 mls/min Documented by: Insulin Aspart (Insulin Aspart 100 Units/Ml 3 Ml Pen) 0 units SC ACHS STEPHANIE Stop: 09/19/21 07:29 Last Admin: 08/20/21 13:01 Dose: Not Given Documented by: Ipratropium Weed (Ipratropium Weed Neb Soln 0.02% 2.5 Ml Vial) 0.5 mg INH Q4H PRN PRN Reason: SOB, WHEEZE Stop: 09/19/21 00:03 Levalbuterol HCl (Levalbuterol 1.25mg/0.5ml Neb) 1.25 mg INH Q4H PRN PRN Reason: SOB, WHEEZE Stop: 09/19/21 00:03 Levothyroxine Sodium (Levothyroxine Sodium 150 Mcg Tablet) 150 mcg PO DAILYBB STEPHANIE Stop: 09/19/21 06:29 Last Admin: 08/20/21 07:21 Dose: Not Given Documented by: Metoprolol Tartrate (Metoprolol Tartrate 1 Mg/Ml Vial) 2.5 mg IV Q6 [facility] Stop: 09/19/21 11:59 Last Admin: 08/20/21 13:52 Dose: 2.5 mg Documented by: Miscellaneous (Carbohydrates For Hypoglycemia ) 15 - 30 gm PO UD PRN PRN Reason: Hypoglycemia Treatment Stop: 09/19/21 05:29 Pantoprazole Sodium (Pantoprazole 40 Mg Tab) 40 mg PO QAM STEPHANIE Stop: 09/19/21 08:59 Last Admin: 08/20/21 11:00 Dose: 40 mg Documented by: Sodium Chloride (Sodium Chloride 0.9% 10ml Flush) 30 ml IV Q24H STEPHANIE Stop: 08/24/21 00:05 Last Admin: 08/20/21 02:35 Dose: Not Given Documented by: Tramadol HCl (Tramadol Hcl 50 Mg Tablet) 25 - 50 mg PO Q4H PRN PRN Reason: Pain Stop: 09/19/21 00:03 Last Admin: 08/20/21 11:27 Dose: 50 mg Documented by:
[2021-08-20] MEDS: amLODIPine BESYLATE 5 MG TAB PO SCH (15:36)
[2021-08-20] MEDS ORDERED: NURSING DECISION MEDICATION ONE (17:35)
[2021-08-20] MEDS ORDERED: COUGH DROP (SUGAR FREE) LOZ 24 LOZ/1 BOX BUCCAL ONE (17:41)
[2021-08-20] MEDS ORDERED: COUGH DROP (SUGAR FREE) LOZ 24 LOZ/1 BOX BUCCAL PRN (17:42)
[2021-08-20] MEDS: SODIUM CHLORIDE 0.9% 1000ML 1,000 ML IV SCH (18:15)
[2021-08-20] MEDS: REMDESIVIR 100 MG in SODIUM CHLORIDE 0.9% 230 ML IV SCH (19:50)
[2021-08-20] MEDS: ATORVASTATIN 40 MG TAB PO SCH (20:51)
[2021-08-20] MEDS: DULoxetine HCL 60 MG CAP PO SCH (20:51)
[2021-08-21] MEDS: SODIUM CHLORIDE 0.9% 10ML FLUSH IV SCH (00:27)
[2021-08-21] MEDS: traMADol HCL 50 MG TABLET PO PRN ×3 (00:35→20:35)
[2021-08-21 06:01] LABS: Basophils # (auto) 0.01 K/uL (0-0.2); Basophils % (auto) 0.1 %; Hematocrit (blood only) 33.4 % (37-47); Hemoglobin 10.8 g/dL (12.0-16.0); Immature Granulocytes # (auto) 0.14 K/uL (0.00-0.02); Immature Granulocytes % (auto) 1.9 %; Lymphocytes # (auto) 0.88 K/uL (1.2-3.4); Lymphocytes % (auto) 11.7 %; Mean Corpuscular Hemoglobin 29.8 pg (25-34); Mean Corpuscular Hgb Conc 32.3 g/dL (32-36); Monocytes # (auto) 0.33 K/uL (0.11-0.59); Monocytes % (auto) 4.4 %; Neutrophils # (auto) 6.16 K/uL (1.4-6.5); Neutrophils % (auto) 81.9 %; Nucleated RBC # (auto) 0.03 K/uL (0-0); Nucleated RBC % (auto) 0.4 %; Platelet Count 187 K/uL (130-400); RDW Coefficient of Variation 15.5 % (11.5-14.5); RDW Standard Deviation 52.6 fL (36.4-46.3); Red Blood Count 3.63 M/uL (4.2-5.4); White Blood Count 7.52 K/uL (4.8-10.8)
[2021-08-21 06:32] LABS: BUN Creatinine Ratio 34.8 (10-20); Calcium 9.2 mg/dl (8.5-10.1); Est GFR (African American) 57.8 ml/min; Est GFR (Non-African American) 49.9 ml/min; Magnesium 2.1 mg/dl (1.8-2.4); Potassium 4.7 mmol/L (3.5-5.1)
[2021-08-21 06:35] LABS: Albumin Globulin Ratio 0.4 (0.9-2); Bilirubin,Total 0.6 mg/dl (0.2-1); Globulin 5.2 gm/dl (2.5-4.0); Phosphorus 2.4 mg/dl (2.5-4.9); Total Protein 7.2 gm/dl (6.4-8.2)
[2021-08-21] MEDS: HEPARIN SOD 5,000 UNIT/0.5 ML VIAL SQ SCH ×3 (06:39→20:36)
[2021-08-21] MEDS: LEVOTHYROXINE SODIUM 150 MCG TABLET PO SCH (06:39)
[2021-08-21] MEDS: METOPROLOL TARTRATE 1 MG/ML VIAL IV SCH ×3 (07:29→17:40)
[2021-08-21 07:57] LABS: Estimated Average Glucose 169 mg/dl; Hemoglobin A1C 7.5 % (4.5-5.6)
[2021-08-21] MEDS: dexAMETHasone 6 MG in SYRINGE 0 ML IV SCH (08:38)
[2021-08-21] MEDS: FENOFIBRATE NANOCRYSTALLIZED 145 MG TABLET PO SCH (08:39)
[2021-08-21] MEDS: CYANOCOBALAMIN 500 MCG TABLET (VITAMIN B-12) PO SCH (08:39)
[2021-08-21] MEDS: PANTOprazole 40 MG TAB PO SCH (08:39)
[2021-08-21] MEDS: amLODIPine BESYLATE 5 MG TAB PO SCH (08:40)
[2021-08-21] MEDS: ASPIRIN 81 MG ECTAB PO SCH (08:40)
[2021-08-21] MEDS: GABAPENTIN 300 MG CAP PO SCH ×4 (08:40→20:35)
[2021-08-21] MEDS: INSULIN ASPART 100 UNITS/ML 3 ML PEN SC SCH ×4 (08:45→21:27)
[2021-08-21] MEDS: INSULIN REGULAR 250 UNITS in SODIUM CHLORIDE 0.9% 247.5 ML IV SCH (08:46)
[2021-08-21] MEDS: 4 mg Once Daily x14 days PO SCH (08:52)
[2021-08-21] MEDS ORDERED: PHARMACY GLYCEMIC MGMT CONSULT PRN (10:53)
--- NOTE | 2021-08-21 11:20 | Pulmonology Progress Note ---
Date of Service August 21, 2021 Assessment & Plan (1) Acute hypoxemic respiratory failure: (2) Pneumonia due to 2019-nCoV: (3) Morbid obesity: Plan: Impression: 50-year-old female vaccinated against Covid now with a breakthrough case and hypoxemic respiratory failure. She has a high oxygen requirement but appears to be somewhat better over the last 12 to 24 hours. Recommendations: 1. Acute hypoxemic respiratory failure: Secondary to Covid pneumonitis. Wean oxygen as tolerated. Due to the patient's morbid obesity, I am not sure proning is a great option however she can try and sleep on her side which may improve VQ mismatching. 2. Covid pneumonitis: Recommend continuing dexamethasone 6 mg daily. She is currently on baricitinib with plans to complete a 14-day course of therapy or until clinically improved, which ever occurs sooner. Patient has been initiated on remdesivir. Will defer to the hospitalist service continuing this medication as the patient is approaching the window where efficacy would be questionable. Her process currently appears to be parenchymal inflammation not viral replication. 3. Management of the patient's other medical issues is deferred to the primary admitting service. Pulmonary remains available to assist in management this patient should she clinically worsen. Please call if we can be of additional assistance. We will sign off for now Admission and Anticipated Discharge Date Admission Date: August 19, 2021 Subjective Patient seen and examined. EMR reviewed. She states she is feeling better. We have been able to wean down her FiO2. She is breathing more comfortably. She denies any chest pain. She is working on trying to maintain the decubitus position is much as possible. No hemoptysis. No fevers chills or night sweats overnight. Review of Systems Review of Systems: All systems reviewed & are unremarkable except as noted in Subjective Physical Exam Constitutional: + morbidly obese Neck: trachea midline, no thyromegaly Respiratory: normal respiratory effort; no respiratory distress, no labored breathing and not tachypneic Auscultation: no rales and no wheezes Cardiovascular: RRR, no murmur, no edema Gastrointestinal (Abdomen): normal bowel sounds, soft, nontender, no hepatosplenomegaly Musculoskeletal: Extremities: extremities normal to inspection Skin: no rashes, warm and dry Lymphatic: no cervical lymphadenopathy Results & Data Results & Data ([facility]) Vital Signs (Past 12 Hours) Vital Signs Temp Pulse Pulse Resp BP BP Pulse Ox 08/21/21 09:12 60 L 08/21/21 09:01 86 24 99 08/21/21 07:29 87 150/89 H 08/21/21 07:11 36.6 C 87 24 150/89 H 97 08/21/21 03:53 36.5 C 86 18 136/84 94 08/21/21 03:41 85 24 93 08/20/21 23:41 36.8 C 79 16 140/90 95 Laboratory Results 08/21/21 05:32 08/21/21 05:30 Diagnostic Findings No new imaging PG Care Time/CCT Total # of Minutes Spent Total Time Spent with Patient: Total time spent is greater than 50% in coordination of care (as documented) at patient's floor/unit and/or counseling patient: Coding Level of Care Code 72534 Subseq Hosp Care Lvl 2 Diagnoses Acute hypoxemic respiratory failure J96.01 Pneumonia due to 2019-nCoV U07.1; J12.82 Morbid obesity E66.01
[2021-08-21] MEDS: HYDROcodone/HOMATROPINE SYRUP 5MG/1.5MG 5ML UDP PO PRN (11:24)
[2021-08-21] MEDS ORDERED: INSULIN GLARGINE SOLOSTAR 100 UNITS/ML 3 ML PEN SC ONE ×2 (11:30→18:00)
--- NOTE | 2021-08-21 14:02 | Pharmacy Report ---
Pharmacy Glycemic Short Note 2 - Date of Service August 21, 2021 - Glycemic Short BSG Results (Last 24 hours): 08/20/21 08/20/21 08/20/21 14:52 16:42 18:43 Glucose POC Glucose 174 H 178 H 157 H 08/20/21 08/20/21 08/20/21 19:49 22:31 22:58 Glucose POC Glucose 141 H 101 H 109 H 08/20/21 08/20/21 08/20/21 23:14 23:28 23:43 Glucose POC Glucose 101 H 113 H 122 H 08/21/21 08/21/21 08/21/21 00:02 00:19 01:22 Glucose POC Glucose 133 H 147 H 139 H 08/21/21 08/21/21 08/21/21 02:23 03:31 03:51 Glucose POC Glucose 119 H 110 H 112 H 08/21/21 08/21/21 08/21/21 04:08 04:22 04:37 Glucose POC Glucose 119 H 119 H 133 H 08/21/21 08/21/21 08/21/21 04:52 05:05 05:27 Glucose POC Glucose 127 H 130 H 144 H 08/21/21 08/21/21 08/21/21 05:30 06:22 07:27 Glucose 137 H POC Glucose 124 H 129 H 08/21/21 08/21/21 08/21/21 08:22 09:19 10:33 Glucose POC Glucose 150 H 139 H 139 H 08/21/21 08/21/21 08/21/21 11:38 12:30 13:34 Glucose POC Glucose 143 H 174 H 208 H OUTPATIENT ANTIDIABETIC REGIMEN: * Toujeo 125 units SQ BID * Novolog SSI * Ozempic 0.5mg qWed * Metformin 1gm PO BID * HbA1c: 7.5% (08/21/21) ASSESSMENT: * Ms Styles is a 50yo diabetic female admitted 08/19 with COVID pna. * Patient was initiated on an IV insulin infusion for severe hyperglycemia. * This morning, BSGs were reasonable and insulin gtt rate was low, so transition was initiated to SQ insulin. * Pt is receiving daily IV dexamethasone, which is expected to contribute to significant steroid-induced hyperglycemia. * Pt is receiving daily remdesivir currently. * Pharmacy glycemic mgmt service followed patient in 2018, and her home regimen was similar at that time. Will utilize data from that admission to help guide insulin dosing this admission. PLAN FOR INPATIENT GLYCEMIC CONTROL: * Hold outpatient oral diabetes medications * Basal insulin * Lantus 50 units SQ x1 dose this morning * Lantus 25-50 units SQ this evening, based on BSGs IV insulin infusion should be discontinued around ~1800 today, 6 hours after the first dose of Lantus given (or when instructed to hold via the "Insulin Infusion Adjustment calculator", whichever happens soonest). * Bolus insulin * NovoLog per scale ACHS or Q6hrs while NPO, plus 0000 and 0400 * Goal Range: Low 110 mg/dL - High 150 mg/dL * Correction Factor: 10 mg/dL/unit * Nutritional / Prandial insulin per carb ratio of 1 unit per 3 grams CHO consumed PLAN FOR DISCHARGE: * tbd
[2021-08-21] MEDS: SODIUM CHLORIDE 0.9% 1000ML 1,000 ML IV SCH (14:35)
--- NOTE | 2021-08-21 17:11 | Hospitalist Progress Note ---
Date of Service August 21, 2021 Assessment & Plan (1) Acute hypoxemic respiratory failure: Plan: Secondary to severe COVID-19 pneumonia Management as below (2) Pneumonia due to 2019-nCoV: Plan: She is fully vaccinated Required BiPAP BiPAP on admission Has been on Decadron and Remdesivir for severe COVID-19 pneumonia. Appreciate pulmonary input and recommendation Did not fulfill the criteria for Tocilizumab but has been started on Baricitinib by the sr. operations manager Has been requiring high flow oxygen to maintain saturation We will keep her on the senior commissions analyst side and will use Lasix as needed Cough suppressant and oxygen as needed with occasional proningif possible Clinically eligible better and will continue current medications We will give a dose of Lasix 60 mg today (3) Elevated troponin: Plan: Troponin was elevated up to 0.19 Likely secondary to Covid infection and doubt any ACS Trending down Denies any cardiac symptoms (4) DM (diabetes mellitus): Plan: Recent outpatient hemoglobin A1c 6.16 January 2021 Basal insulin adjusted for n.p.o. status, ISS BG goal 1 10-1 40, update hemoglobin A1c-7.5 Placement pharmacy consulted for diabetes management (5) HTN (hypertension): Plan: Hypertension, elevated secondary to anxiety/discomfort Remains on the upper side Holding ARB for increasing creatinine Will start amlodipine to control blood pressure Acute kidney injury ARF on CKD secondary to illness Monitor creatinine/lactic acid response to IVF Appropriate to hold home diuretics and ARB until creatinine back to baseline Initiate amlodipine if with persistent BP elevation while home diuretic/ARB on hold. Plan: Hyperlipidemia On Statin DVT prophylaxis Heparin subcu Full code Patient daughter requesting updates from providers. Ms. Tabatha Mathias, contact #[phone]. Admission and Anticipated Discharge Date Admission Date: August 19, 2021 Subjective 08/20/2021 The patient was seen and examined in telemetry unit and in the Covid room She has not been feeling any better since admission though she is off BiPAP now Has been complaining of cough with shortness of breath Denies any fever and/or chills and no chest pain or palpitation 08/21/2021 The patient was seen and examined in telemetry unit and in the Covid room She has been feeling much better today Complains today of cough and shortness of breath Review of Systems Review of Systems: All systems reviewed and are unremarkable except as noted below Respiratory: Moderate shortness of breath at rest Physical Exam Physical Exam: Sitting at the edge of the bed sitting at the edge of the bed with moderate shortness of breath Constitutional: well developed, well nourished, + ill appearing and + obese Eyes: PERRL, conjunctivae normal, anicteric sclerae ENMT: external ear and nose normal, oropharynx normal Neck: trachea midline, no thyromegaly Respiratory: + respiratory distress, + labored breathing and + cough Auscultation: + diminished lung sounds and + crackles (Minimal crackles at the bases) Cardiovascular: Rate/Rhythm: regular rate and regular rhythm; not tachycardic Heart Sounds: normal S1 and normal S2; no murmur Palpation: normal PMI Extremities: + edema (1+ edema bilaterally) Gastrointestinal (Abdomen): Inspection/Auscultation: + abdomen distended and normal bowel sounds Percussion/Palpation: abdomen soft; abdomen nontender Musculoskeletal: No acute arthritis in any joint Neurologic: patellar DTR's 2+ bilat, sensation intact Psychiatric: A+Ox3, euthymic affect Lymphatic: no cervical or axillary lymphadenopathy Results & Data Results & Data ([facility]) Vital Signs (Past 12 Hours) Vital Signs Temp Pulse Pulse Resp BP BP Pulse Ox 08/21/21 16:06 36.4 C L 86 22 150/90 H 92 08/21/21 12:58 85 144/87 H 08/21/21 12:52 85 20 98 08/21/21 12:16 36.9 C 84 26 H 144/87 H 96 08/21/21 09:12 60 L 08/21/21 09:01 86 24 99 08/21/21 07:29 87 150/89 H 08/21/21 07:11 36.6 C 87 24 150/89 H 97 Laboratory Results Short CBC 08/21/21 Range/Units 05:32 WBC 7.52 (4.8-10.8) K/uL Hgb 10.8 L (12.0-16.0) g/dL Hct 33.4 L (37-47) % Plt Count 187 (130-400) K/uL BMP 08/21/21 05:30 Sodium 139 Potassium 4.7 Chloride 108 H Carbon Dioxide 29 BUN 44 H Creatinine 1.27 H Glucose 137 H Calcium 9.2 Liver Function 11/11/21 Range/Units 05:30 Total Bilirubin 0.6 (0.2-1) mg/dl AST 62 H (15-37) U/L ALT 24 (12-78) U/L Alkaline Phosphatase 74 (45-117) U/L Albumin 2.0 L (3.4-5.0) gm/dl Medications Administered Current Inpatient Medications Acetaminophen (Acetaminophen 325 Mg Tab) 650 mg PO Q4H PRN PRN Reason: Pain or Fever Stop: 09/19/21 00:03 Amlodipine Besylate (Amlodipine Besylate 5 Mg Tab) 5 mg PO QAM [facility] Stop: 09/19/21 14:29 Last Admin: 08/21/21 08:40 Dose: 5 mg Documented by: Aspirin (Aspirin 81 Mg Ectab) 81 mg PO DAILY [facility] Stop: 09/19/21 08:59 Last Admin: 08/21/21 08:40 Dose: 81 mg Documented by: Atorvastatin Calcium (Atorvastatin 40 Mg Tab) 40 mg PO HS STEPHANIE Stop: 09/19/21 20:59 Last Admin: 08/20/21 20:51 Dose: 40 mg Documented by: Baricitinib (4 Mg Once Daily X14 Days) 4 mg PO DAILY STEPHANIE; Protocol Stop: 09/03/21 08:59 Last Admin: 08/21/21 08:52 Dose: 4 mg Documented by: Cyanocobalamin (Cyanocobalamin 500 Mcg Tablet (Vitamin B-12)) 1,000 mcg PO QAM STEPHANIE Stop: 09/19/21 08:59 Last Admin: 08/21/21 08:39 Dose: 1,000 mcg Documented by: Dextrose (Dextrose 50% 50 Ml Syringe) 25 - 50 ml IV UD PRN; Protocol PRN Reason: Hypoglycemia Protocol Stop: 09/19/21 05:29 Duloxetine HCl (Duloxetine Hcl 60 Mg Cap) 60 mg PO HS STEPHANIE Stop: 09/19/21 20:59 Last Admin: 08/20/21 20:51 Dose: 60 mg Documented by: Fenofibrate (Fenofibrate Nanocrystallized 145 Mg Tablet) 145 mg PO QAM STEPHANIE Stop: 09/19/21 08:59 Last Admin: 08/21/21 08:39 Dose: 145 mg Documented by: Gabapentin (Gabapentin 300 Mg Cap) 300 mg PO QID STEPHANIE Stop: 09/19/21 08:59 Last Admin: 08/21/21 12:59 Dose: 300 mg Documented by: Glucagon (Glucagon For Inj 1 Mg Vial) 1 mg IM UD PRN; Protocol PRN Reason: Hypoglycemia Protocol Stop: 09/19/21 05:29 Glucose (Glucose 40% Gel 15 Gm Tube) 15 - 30 gm PO UD PRN; Protocol PRN Reason: Hypoglycemia Protocol Stop: 09/19/21 05:29 Glucose (Glucose 10 Tabs/Tube) 4 - 8 tabs PO UD PRN; Protocol PRN Reason: Hypoglycemia Protocol Stop: 09/19/21 05:29 Guaifenesin (Guaifenesin 600 Mg Tabcr) 1,200 mg PO Q12 STEPHANIE Stop: 09/20/21 20:59 Heparin Sodium (Porcine) (Heparin Sod 5,000 Unit/0.5 Ml Vial) 5,000 units SQ Q8 STEPHANIE Stop: 09/19/21 05:59 Last Admin: 08/21/21 13:00 Dose: 5,000 units Documented by: Hydrocodone Bit/Homatropine Methylb (Hydrocodone/Homatropine Syrup 5mg/1.5mg 5ml Udp) 5 ml PO Q6H PRN PRN Reason: Cough Stop: 09/04/21 10:50 Last Admin: 08/21/21 11:24 Dose: 5 ml Documented by: Promethazine HCl 12.5 mg/ (Sodium Chloride) 50.5 mls @ 202 mls/hr IV Q6H PRN PRN Reason: Nausea And Vomiting Stop: 09/19/21 00:03 Remdesivir 100 mg/ Sodium (Chloride) 250 mls @ 250 mls/hr IV Q24H STEPHANIE; Protocol Stop: 08/23/21 20:59 Last Infusion: 08/20/21 21:03 Dose: Infused Documented by: Insulin Human Regular 250 (units/ Sodium Chloride) 250 mls @ 1.6 mls/hr IV .Q24H STEPHANIE; Protocol Stop: 08/21/21 18:00 Last Titration: 08/21/21 15:30 Dose: 1.6 units/hr, 1.6 mls/hr Documented by: Sodium Chloride (Nss 1000ml) 1,000 mls @ 50 mls/hr IV .Q20H STEPHANIE Stop: 09/19/21 16:44 Last Admin: 08/21/21 14:35 Dose: 50 mls/hr Documented by: Dexamethasone 6 mg/ Syringe 1.5 mls @ 1 mls/min IV DAILY [facility] Stop: 09/19/21 06:29 Last Admin: 08/21/21 08:38 Dose: 1 mls/min Documented by: Insulin Aspart (Insulin Aspart 100 Units/Ml 3 Ml Pen) 0 units SC ACHS [facility]; Protocol Stop: 09/19/21 07:29 Last Admin: 08/21/21 13:21 Dose: 1 units Documented by: Insulin Aspart (Insulin Aspart 100 Units/Ml 3 Ml Pen) 0 units SC 0000,0400 [facility]; Protocol Stop: 08/22/21 04:01 Insulin Glargine (Insulin Glargine Solostar 100 Units/Ml 3 Ml Pen) 0 units SC TODAY@1800 ONE; Protocol Stop: 08/21/21 18:01 Ipratropium Hallie (Ipratropium Hallie Neb Soln 0.02% 2.5 Ml Vial) 0.5 mg INH Q4H PRN PRN Reason: SOB, WHEEZE Stop: 09/19/21 00:03 Levalbuterol HCl (Levalbuterol 1.25mg/0.5ml Neb) 1.25 mg INH Q4H PRN PRN Reason: SOB, WHEEZE Stop: 09/19/21 00:03 Levothyroxine Sodium (Levothyroxine Sodium 150 Mcg Tablet) 150 mcg PO DAILYBB [facility] Stop: 09/19/21 06:29 Last Admin: 08/21/21 06:39 Dose: 150 mcg Documented by: Menthol (Cough Drop (Sugar Free) Emelyn 24 Emelyn/1 Box) 1 emelyn BUCCAL PRN PRN PRN Reason: Cough Stop: 09/19/21 17:41 Metoprolol Tartrate (Metoprolol Tartrate 1 Mg/Ml Vial) 2.5 mg IV Q6 [facility] Stop: 09/19/21 11:59 Last Admin: 08/21/21 12:58 Dose: 2.5 mg Documented by: Miscellaneous (Carbohydrates For Hypoglycemia ) 15 - 30 gm PO UD PRN PRN Reason: Hypoglycemia Treatment Stop: 09/19/21 05:29 Miscellaneous Information (Pharmacy Glycemic Mgmt Consult) 1 ea N/A UD PRN PRN Reason: Consult Stop: 09/20/21 10:52 Pantoprazole Sodium (Pantoprazole 40 Mg Tab) 40 mg PO QAM [facility] Stop: 09/19/21 08:59 Last Admin: 08/21/21 08:39 Dose: 40 mg Documented by: Sodium Chloride (Sodium Chloride 0.9% 10ml Flush) 30 ml IV Q24H STEPHANIE Stop: 08/24/21 00:05 Last Admin: 08/21/21 00:27 Dose: 30 ml Documented by: Tramadol HCl (Tramadol Hcl 50 Mg Tablet) 25 - 50 mg PO Q4H PRN PRN Reason: Pain Stop: 09/19/21 00:03 Last Admin: 08/21/21 08:52 Dose: 50 mg Documented by:
[2021-08-21] MEDS: REMDESIVIR 100 MG in SODIUM CHLORIDE 0.9% 230 ML IV SCH (20:34)
[2021-08-21] MEDS: DULoxetine HCL 60 MG CAP PO SCH (20:35)
[2021-08-21] MEDS: ATORVASTATIN 40 MG TAB PO SCH (20:35)
[2021-08-21] MEDS: guaiFENesin 600 MG TABCR PO SCH (20:35)
[2021-08-22] MEDS: INSULIN ASPART 100 UNITS/ML 3 ML PEN SC SCH ×6 (00:42→20:16)
[2021-08-22] MEDS: METOPROLOL TARTRATE 1 MG/ML VIAL IV SCH ×5 (00:43→23:49)
[2021-08-22] MEDS: SODIUM CHLORIDE 0.9% 10ML FLUSH IV SCH (00:43)
[2021-08-22] MEDS: traMADol HCL 50 MG TABLET PO PRN ×4 (03:56→21:01)
[2021-08-22] MEDS: HYDROcodone/HOMATROPINE SYRUP 5MG/1.5MG 5ML UDP PO PRN ×2 (03:58→23:49)
[2021-08-22] MEDS: LEVOTHYROXINE SODIUM 150 MCG TABLET PO SCH (06:11)
[2021-08-22] MEDS: HEPARIN SOD 5,000 UNIT/0.5 ML VIAL SQ SCH ×3 (06:11→21:02)
[2021-08-22 07:33] LABS: BUN Creatinine Ratio 36.8 (10-20); Calcium 9.4 mg/dl (8.5-10.1); Creatinine Clr Calc Pharmacy 88.9 ml/min; Est GFR (African American) 65.2 ml/min; Est GFR (Non-African American) 56.2 ml/min; Potassium 4.2 mmol/L (3.5-5.1)
[2021-08-22] MEDS ORDERED: FUROSEMIDE INJ 20 MG/2 ML VIAL IV ONE (08:47)
[2021-08-22] MEDS ORDERED: INSULIN GLARGINE SOLOSTAR 100 UNITS/ML 3 ML PEN SC SCH (09:00)
[2021-08-22] MEDS: SODIUM CHLORIDE 0.9% 1000ML 1,000 ML IV SCH (09:24)
[2021-08-22] MEDS: dexAMETHasone 6 MG in SYRINGE 0 ML IV SCH (09:26)
[2021-08-22] MEDS: 4 mg Once Daily x14 days PO SCH (09:27)
[2021-08-22] MEDS: GABAPENTIN 300 MG CAP PO SCH ×4 (09:27→20:15)
[2021-08-22] MEDS: FENOFIBRATE NANOCRYSTALLIZED 145 MG TABLET PO SCH (09:27)
[2021-08-22] MEDS: ASPIRIN 81 MG ECTAB PO SCH (09:28)
[2021-08-22] MEDS: amLODIPine BESYLATE 5 MG TAB PO SCH (09:29)
[2021-08-22] MEDS: CYANOCOBALAMIN 500 MCG TABLET (VITAMIN B-12) PO SCH (09:29)
[2021-08-22] MEDS: PANTOprazole 40 MG TAB PO SCH (09:29)
[2021-08-22] MEDS: guaiFENesin 600 MG TABCR PO SCH ×2 (09:29→20:15)
[2021-08-22] MEDS: LIDOCAINE VISCOUS 2% SOLN 60 ML, diphenhydrAMINE Syrup 150 MG, ALUMINUM/MAGNESIUM SUSP ... PO PRN (12:52)
--- NOTE | 2021-08-22 14:41 | Pharmacy Report ---
Pharmacy Glycemic Short Note 2 - Date of Service August 22, 2021 - Glycemic Short BSG Results (Last 24 hours): 08/21/21 08/21/21 08/21/21 14:32 15:35 16:36 Glucose POC Glucose 225 H 222 H 223 H 08/21/21 08/21/21 08/22/21 17:35 20:21 00:36 Glucose POC Glucose 237 H 230 H 154 H 08/22/21 08/22/21 08/22/21 03:52 06:07 08:00 Glucose 76 POC Glucose 96 58 L* 08/22/21 08/22/21 08/22/21 08:01 08:27 12:09 Glucose POC Glucose 58 L* 93 65 L* 08/22/21 12:11 Glucose POC Glucose 73 OUTPATIENT ANTIDIABETIC REGIMEN: * Toujeo 125 units SQ BID * Novolog SSI * Ozempic 0.5mg qWed * Metformin 1gm PO BID * HbA1c: 7.5% (08/21/21) ASSESSMENT: 08/22/21: * Despite dosing basal insulin at less than half of patient's home dose yesterday, patient was hypoglycemic this morning. * Will hold PM Lantus dose this evening and re-assess in am. * Novolog parameters loosened this afternoon. * Patient is requiring drastically less insulin than she uses at home, which is very surprising, especially given that pt is receiving IV dexamethasone!! * Will continue to follow closely and adjust regimen as needed. 08/21 * Ms Styles is a 50yo diabetic female admitted 08/19 with COVID pna. * Patient was initiated on an IV insulin infusion for severe hyperglycemia. * This morning, BSGs were reasonable and insulin gtt rate was low, so transition was initiated to SQ insulin. * Pt is receiving daily IV dexamethasone, which is expected to contribute to significant steroid-induced hyperglycemia. * Pt is receiving daily remdesivir currently. * Pharmacy glycemic mgmt service followed patient in 2019, and her home regimen was similar at that time. Will utilize data from that admission to help guide insulin dosing this admission. PLAN FOR INPATIENT GLYCEMIC CONTROL: * Hold outpatient oral diabetes medications * Basal insulin * Lantus 40 units SQ this morning * will re-assess in morning * Bolus insulin * NovoLog per scale ACHS or Q6hrs while NPO, plus 0000 and 0400 * Goal Range: Low 110 mg/dL - High 150 mg/dL * Correction Factor: 15 mg/dL/unit * Nutritional / Prandial insulin per carb ratio of 1 unit per 5 grams CHO consumed PLAN FOR DISCHARGE: * tbd
[2021-08-22] MEDS: ACETAMINOPHEN 325 MG TAB PO PRN (16:14)
--- NOTE | 2021-08-22 16:26 | Hospitalist Progress Note ---
Date of Service August 22, 2021 Assessment & Plan (1) Acute hypoxemic respiratory failure: Plan: Secondary to severe COVID-19 pneumonia Management as below (2) Pneumonia due to 2019-nCoV: Plan: She is fully vaccinated Required BiPAP BiPAP on admission Has been on Decadron and Remdesivir for severe COVID-19 pneumonia. Appreciate pulmonary input and recommendation Did not fulfill the criteria for Tocilizumab but has been started on Baricitinib by the deputy building guard Has been requiring high flow oxygen to maintain saturation We will keep her on the continuous drier operator side and will use Lasix as needed Cough suppressant and oxygen as needed with occasional proningif possible Clinically eligible better and will continue current medications We will give a dose of Lasix 60 mg today 08/22/2021 Has been feeling much better and has been requiring 8 L oxygen to maintain saturation Still has some cough denies any other symptoms (3) Elevated troponin: Plan: Troponin was elevated up to 0.19 Likely secondary to Covid infection and doubt any ACS Trending down Denies any cardiac symptoms (4) DM (diabetes mellitus): Plan: Recent outpatient hemoglobin A1c 6.16 January 2021 Basal insulin adjusted for n.p.o. status, ISS BG goal 1 10-1 40, update hemoglobin A1c-7.5 Placement pharmacy consulted for diabetes management (5) HTN (hypertension): Plan: Hypertension, elevated secondary to anxiety/discomfort Remains on the upper side Holding ARB for increasing creatinine Will start amlodipine to control blood pressure Blood pressure remains stable Acute kidney injury ARF on CKD secondary to illness Monitor creatinine/lactic acid response to IVF Appropriate to hold home diuretics and ARB until creatinine back to baseline Initiate amlodipine if with persistent BP elevation while home diuretic/ARB on h old. Creatinine has been normalized Plan: Hyperlipidemia On Statin DVT prophylaxis Heparin subcu Full code Patient daughter requesting updates from providers. Ms. Tabatha Mathias, contact #[phone]. Admission and Anticipated Discharge Date Admission Date: August 19, 2021 Subjective 08/20/2021 The patient was seen and examined in telemetry unit and in the Covid room She has not been feeling any better since admission though she is off BiPAP now Has been complaining of cough with shortness of breath Denies any fever and/or chills and no chest pain or palpitation 08/21/2021 The patient was seen and examined in telemetry unit and in the Covid room She has been feeling much better today Complains today of cough and shortness of breath 08/22/2021 The patient was seen and examined in telemetry unit and in the Covid room She has been feeling much better and is requiring up to 8 L of oxygen to maintain saturation The cough has been decreased Review of Systems Review of Systems: All systems reviewed and are unremarkable except as noted below Respiratory: Moderate shortness of breath at rest Physical Exam Physical Exam: Out of bed on a chair with minimal respiratory distress Constitutional: well developed, well nourished, + ill appearing and + obese Eyes: PERRL, conjunctivae normal, anicteric sclerae ENMT: external ear and nose normal, oropharynx normal Neck: trachea midline, no thyromegaly Respiratory: + respiratory distress, + labored breathing and + cough Auscultation: + diminished lung sounds and + crackles (Minimal crackles at the bases) Cardiovascular: Rate/Rhythm: regular rate and regular rhythm; not tachycardic Heart Sounds: normal S1 and normal S2; no murmur Palpation: normal PMI Extremities: + edema (1+ edema bilaterally) Gastrointestinal (Abdomen): Inspection/Auscultation: + abdomen distended and normal bowel sounds Percussion/Palpation: abdomen soft; abdomen nontender Neurologic: patellar DTR's 2+ bilat, sensation intact Psychiatric: A+Ox3, euthymic affect Lymphatic: no cervical or axillary lymphadenopathy Results & Data Results & Data ([facility]) Vital Signs (Past 12 Hours) Vital Signs Temp Pulse Pulse Resp BP Pulse Ox 08/22/21 15:40 89 20 132/83 93 08/22/21 11:34 36.8 C 91 H 25 H 126/85 93 08/22/21 07:54 36.6 C 84 25 H 135/82 94 08/22/21 06:11 84 Laboratory Results [facility] 08/22/21 06:07 Sodium 139 Potassium 4.2 Chloride 106 Carbon Dioxide 25 BUN 42 H Creatinine 1.15 Glucose 76 Calcium 9.4 Medications Administered Current Inpatient Medications Acetaminophen (Acetaminophen 325 Mg Tab) 650 mg PO Q4H PRN PRN Reason: Pain or Fever Stop: 09/19/21 00:03 Last Admin: 08/22/21 16:14 Dose: 650 mg Documented by: Amlodipine Besylate (Amlodipine Besylate 5 Mg Tab) [facility] [place]: 09/19/21 14:29 Last Admin: 08/22/21 09:29 Dose: 5 mg Documented by: Aspirin (Aspirin 81 Mg Ectab) 81 mg PO DAILY [facility] Stop: 09/19/21 08:59 Last Admin: 08/22/21 09:28 Dose: 81 mg Documented by: Atorvastatin Calcium (Atorvastatin 40 Mg Tab) 40 mg PO HS STEPHANIE Stop: 09/19/21 20:59 Last Admin: 08/21/21 20:35 Dose: 40 mg Documented by: Baricitinib (4 Mg Once Daily X14 Days) 4 mg PO DAILY STEPHANIE; Protocol Stop: 09/03/21 08:59 Last Admin: 08/22/21 09:27 Dose: 4 mg Documented by: Lidocaine HCl 60 ml/Diphenhydramine HCl 150 mg/ Al Hydrox/Mg Hydrox/Simethicone 60 ml/ Glycerin 60 ml/ [employer]CODE IDENTIFIER 1 ea 0 ml PO Q4H PRN PRN Reason: Sore Throat Stop: 09/21/21 08:12 Last Admin: 08/22/21 12:52 Dose: 5 ml Documented by: Cyanocobalamin (Cyanocobalamin 500 Mcg Tablet (Vitamin B-12)) 1,000 mcg PO QAM STEPHANIE Stop: 09/19/21 08:59 Last Admin: 08/22/21 09:29 Dose: 1,000 mcg Documented by: Dextrose (Dextrose 50% 50 Ml Syringe) 25 - 50 ml IV UD PRN; Protocol PRN Reason: Hypoglycemia Protocol Stop: 09/19/21 05:29 Duloxetine HCl (Duloxetine Hcl 60 Mg Cap) 60 mg PO HS [facility] Stop: 09/19/21 20:59 Last Admin: 08/21/21 20:35 Dose: 60 mg Documented by: Fenofibrate (Fenofibrate Nanocrystallized 145 Mg Tablet) 145 mg PO QAM [facility] Stop: 09/19/21 08:59 Last Admin: 08/22/21 09:27 Dose: 145 mg Documented by: Gabapentin (Gabapentin 300 Mg Cap) 300 mg PO QID [facility] Stop: 09/19/21 08:59 Last Admin: 08/22/21 12:02 Dose: 300 mg Documented by: Glucagon (Glucagon For Inj 1 Mg Vial) 1 mg IM UD PRN; Protocol PRN Reason: Hypoglycemia Protocol Stop: 09/19/21 05:29 Glucose (Glucose 40% Gel 15 Gm Tube) 15 - 30 gm PO UD PRN; Protocol PRN Reason: Hypoglycemia Protocol Stop: 09/19/21 05:29 Glucose (Glucose 10 Tabs/Tube) 4 - 8 tabs PO UD PRN; Protocol PRN Reason: Hypoglycemia Protocol Stop: 09/19/21 05:29 Guaifenesin (Guaifenesin 600 Mg Tabcr) 1,200 mg PO Q12 STEPHANIE Stop: 09/20/21 20:59 Last Admin: 08/22/21 09:29 Dose: 1,200 mg Documented by: Heparin Sodium (Porcine) (Heparin Sod 5,000 Unit/0.5 Ml Vial) 5,000 units SQ Q8 STEPHANIE Stop: 09/19/21 05:59 Last Admin: 08/22/21 15:56 Dose: 5,000 units Documented by: Hydrocodone Bit/Homatropine Methylb (Hydrocodone/Homatropine Syrup 5mg/1.5mg 5ml Udp) 5 ml PO Q6H PRN PRN Reason: Cough Stop: 09/04/21 10:50 Last Admin: 08/22/21 03:58 Dose: 5 ml Documented by: Promethazine HCl 12.5 mg/ (Sodium Chloride) 50.5 mls @ 202 mls/hr IV Q6H PRN PRN Reason: Nausea And Vomiting Stop: 09/19/21 00:03 Remdesivir 100 mg/ Sodium (Chloride) 250 mls @ 250 mls/hr IV Q24H STEPHANIE; Protocol Stop: 08/23/21 20:59 Last Infusion: 08/21/21 23:40 Dose: Infused Documented by: Sodium Chloride (Nss 1000ml) 1,000 mls @ 50 mls/hr IV .Q20H STEPHANIE Stop: 09/19/21 16:44 Last Admin: 08/22/21 09:24 Dose: 50 mls/hr Documented by: Dexamethasone 6 mg/ Syringe 1.5 mls @ 1 mls/min IV DAILY STEPHANIE Stop: 09/19/21 06:29 Last Admin: 08/22/21 09:26 Dose: 1 mls/min Documented by: Insulin Aspart (Insulin Aspart 100 Units/Ml 3 Ml Pen) 0 units SC ACHS [facility]; Protocol Stop: 09/19/21 07:29 Last Admin: 08/22/21 12:51 Dose: 1 units Documented by: Ipratropium Eccles (Ipratropium Eccles Neb Soln 0.02% 2.5 Ml Vial) 0.5 mg INH Q4H PRN PRN Reason: SOB, WHEEZE Stop: 09/19/21 00:03 Levalbuterol HCl (Levalbuterol 1.25mg/0.5ml Neb) 1.25 mg INH Q4H PRN PRN Reason: SOB, WHEEZE Stop: 09/19/21 00:03 Levothyroxine Sodium (Levothyroxine Sodium 150 Mcg Tablet) 150 mcg PO DAILYBB STEPHANIE Stop: 09/19/21 06:29 Last Admin: 08/22/21 06:11 Dose: 150 mcg Documented by: Menthol (Cough Drop (Sugar Free) Emelyn 24 Emelyn/1 Box) 1 emelyn BUCCAL PRN PRN PRN Reason: Cough Stop: 09/19/21 17:41 Metoprolol Tartrate (Metoprolol Tartrate 1 Mg/Ml Vial) 2.5 mg IV Q6 STEPHANIE Stop: 09/19/21 11:59 Last Admin: 08/22/21 12:02 Dose: 2.5 mg Documented by: Miscellaneous (Carbohydrates For Hypoglycemia ) 15 - 30 gm PO UD PRN PRN Reason: Hypoglycemia Treatment Stop: 09/19/21 05:29 Miscellaneous Information (Pharmacy Glycemic Mgmt Consult) 1 ea N/A UD PRN PRN Reason: Consult Stop: 09/20/21 10:52 Pantoprazole Sodium (Pantoprazole 40 Mg Tab) 40 mg PO QAM STEPHANIE Stop: 09/19/21 08:59 Last Admin: 08/22/21 09:29 Dose: 40 mg Documented by: Sodium Chloride (Sodium Chloride 0.9% 10ml Flush) 30 ml IV Q24H STEPHANIE Stop: 08/24/21 00:05 Last Admin: 08/22/21 00:43 Dose: 30 ml Documented by: Tramadol HCl (Tramadol Hcl 50 Mg Tablet) 25 - 50 mg PO Q4H PRN PRN Reason: Pain Stop: 09/19/21 00:03 Last Admin: 08/22/21 16:13 Dose: 25 mg Documented by:
[2021-08-22] MEDS: REMDESIVIR 100 MG in SODIUM CHLORIDE 0.9% 230 ML IV SCH (20:15)
[2021-08-22] MEDS: ATORVASTATIN 40 MG TAB PO SCH (20:15)
[2021-08-22] MEDS: DULoxetine HCL 60 MG CAP PO SCH (21:02)
[2021-08-23] MEDS: SODIUM CHLORIDE 0.9% 10ML FLUSH IV SCH (00:16)
[2021-08-23] MEDS: SODIUM CHLORIDE 0.9% 1000ML 1,000 ML IV SCH (00:19)
[2021-08-23] MEDS: traMADol HCL 50 MG TABLET PO PRN ×3 (04:04→21:30)
[2021-08-23] MEDS: METOPROLOL TARTRATE 1 MG/ML VIAL IV SCH ×3 (06:06→17:09)
[2021-08-23] MEDS: LEVOTHYROXINE SODIUM 150 MCG TABLET PO SCH (06:06)
[2021-08-23] MEDS: ACETAMINOPHEN 325 MG TAB PO PRN ×2 (06:06→21:30)
[2021-08-23] MEDS: HEPARIN SOD 5,000 UNIT/0.5 ML VIAL SQ SCH ×3 (06:07→21:31)
[2021-08-23] MEDS: LIDOCAINE VISCOUS 2% SOLN 60 ML, diphenhydrAMINE Syrup 150 MG, ALUMINUM/MAGNESIUM SUSP ... PO PRN (06:38)
[2021-08-23 07:41] LABS: BUN Creatinine Ratio 37.3 (10-20); Calcium 8.6 mg/dl (8.5-10.1); Creatinine Clr Calc Pharmacy 83.8 ml/min; Est GFR (African American) 60.7 ml/min; Est GFR (Non-African American) 52.3 ml/min; Magnesium 1.7 mg/dl (1.8-2.4); Potassium 4.2 mmol/L (3.5-5.1)
[2021-08-23] MEDS: ASPIRIN 81 MG ECTAB PO SCH (08:52)
[2021-08-23] MEDS: CYANOCOBALAMIN 500 MCG TABLET (VITAMIN B-12) PO SCH (08:52)
[2021-08-23] MEDS: GABAPENTIN 300 MG CAP PO SCH ×4 (08:52→20:07)
[2021-08-23] MEDS: guaiFENesin 600 MG TABCR PO SCH ×2 (08:52→20:07)
[2021-08-23] MEDS: 4 mg Once Daily x14 days PO SCH (08:53)
[2021-08-23] MEDS: amLODIPine BESYLATE 5 MG TAB PO SCH (08:55)
[2021-08-23] MEDS: PANTOprazole 40 MG TAB PO SCH (08:55)
[2021-08-23] MEDS: FENOFIBRATE NANOCRYSTALLIZED 145 MG TABLET PO SCH (08:55)
[2021-08-23] MEDS: dexAMETHasone 6 MG in SYRINGE 0 ML IV SCH (08:56)
[2021-08-23] MEDS ORDERED: INSULIN GLARGINE SOLOSTAR 100 UNITS/ML 3 ML PEN SC SCH (09:00)
[2021-08-23] MEDS: INSULIN ASPART 100 UNITS/ML 3 ML PEN SC SCH ×4 (09:33→22:07)
--- NOTE | 2021-08-23 13:59 | Pharmacy Report ---
Pharmacy Glycemic Short Note 2 - Date of Service August 23, 2021 - Glycemic Short BSG Results (Last 24 hours): 08/22/21 08/22/21 08/23/21 16:16 20:09 00:02 Glucose POC Glucose 79 135 H 103 H 08/23/21 08/23/21 08/23/21 06:30 06:37 07:37 Glucose 79 POC Glucose 77 99 08/23/21 12:13 Glucose POC Glucose 162 H OUTPATIENT ANTIDIABETIC REGIMEN: * Toujeo 125 units SQ BID * Novolog SSI * Ozempic 0.5mg qWed * Metformin 1gm PO BID * HbA1c: 7.5% (08/21/21) ASSESSMENT: 08/23 * Pt has received 47 units of insulin over the past 24hrs * 40 units of basal with Lantus * 7 units of bolus with NovoLog * BSGs trending LOW yesterday - most likely from the 100 units of Lantus that were given the day prior to transition off of insulin infusion * No LOW BSGs this morning and BSGs trending upwards to goal range. Will continue with Lantus 40 units daily (as this is a 60% reduction from 08/21) and titrate based on BSG trends. Of note, patient does take Toujeo 125 units S Q BID as an outpatient. 08/22/21: * Despite dosing basal insulin at less than half of patient's home dose yesterday, patient was hypoglycemic this morning. * Will hold PM Lantus dose this evening and re-assess in am. * Novolog parameters loosened this afternoon. * Patient is requiring drastically less insulin than she uses at home, which is very surprising, especially given that pt is receiving IV dexamethasone!! * Will continue to follow closely and adjust regimen as needed. 08/21 * Ms Styles is a 50yo diabetic female admitted 08/19 with COVID pna. * Patient was initiated on an IV insulin infusion for severe hyperglycemia. * This morning, BSGs were reasonable and insulin gtt rate was low, so transition was initiated to SQ insulin. * Pt is receiving daily IV dexamethasone, which is expected to contribute to significant steroid-induced hyperglycemia. * Pt is receiving daily remdesivir currently. * Pharmacy glycemic mgmt service followed patient in 2019, and her home regimen was similar at that time. Will utilize data from that admission to help guide insulin dosing this admission. PLAN FOR INPATIENT GLYCEMIC CONTROL: * Hold outpatient oral diabetes medications * Basal insulin * Lantus 40 units SQ daily in AM * Bolus insulin * NovoLog per scale ACHS or Q6hrs while NPO, plus 0000 and 0400 * Goal Range: Low 110 mg/dL - High 150 mg/dL * Correction Factor: 15 mg/dL/unit * Nutritional / Prandial insulin per carb ratio of 1 unit per 5 grams CHO consumed PLAN FOR DISCHARGE: * tbd
--- NOTE | 2021-08-23 15:04 | Hospitalist Progress Note ---
Date of Service August 23, 2021 Assessment & Plan (1) Acute hypoxemic respiratory failure: Plan: Secondary to severe COVID-19 pneumonia Management as below (2) Pneumonia due to 2019-nCoV: Plan: She is fully vaccinated Required BiPAP BiPAP on admission Has been on Decadron and Remdesivir for severe COVID-19 pneumonia. Appreciate pulmonary input and recommendation Did not fulfill the criteria for Tocilizumab but has been started on Baricitinib by the paste up copy camera operator Has been requiring high flow oxygen to maintain saturation We will keep her on the drier operator side and will use Lasix as needed Cough suppressant and oxygen as needed with occasional proningif possible Clinically eligible better and will continue current medications We will give a dose of Lasix 60 mg today 08/22/2021 Has been feeling much better and has been requiring 7 L of oxygen via nasal cannula to maintain saturation Her cough has improved (3) Elevated troponin: Plan: Troponin was elevated up to 0.19 Likely secondary to Covid infection and doubt any ACS Trending down Denies any cardiac symptoms (4) DM (diabetes mellitus): Plan: Recent outpatient hemoglobin A1c 6.16 January 2021 Basal insulin adjusted for n.p.o. status, ISS BG goal 1 10-1 40, update hemoglobin A1c-7.5 Placement pharmacy consulted for diabetes management (5) HTN (hypertension): Plan: Hypertension, elevated secondary to anxiety/discomfort Remains on the upper side Holding ARB for increasing creatinine Will start amlodipine to control blood pressure Blood pressure remains stable Acute kidney injury ARF on CKD secondary to illness Monitor creatinine/lactic acid response to IVF Appropriate to hold home diuretics and ARB until creatinine back to baseline Initiate amlodipine if with persistent BP elevation while home diuretic/ARB on hold. Creatinine is minimally high at 1.22-will not give any Lasix today 08/23/2021 Plan: Hyperlipidemia On Statin DVT prophylaxis Heparin subcu Full code Patient daughter requesting updates from providers. Ms. GarciaTabatha Stew, contact #[phone]. Admission and Anticipated Discharge Date Admission Date: August 19, 2021 Subjective 08/20/2021 The patient was seen and examined in telemetry unit and in the Covid room She has not been feeling any better since admission though she is off BiPAP now Has been complaining of cough with shortness of breath Denies any fever and/or chills and no chest pain or palpitation 08/21/2021 The patient was seen and examined in telemetry unit and in the Covid room She has been feeling much better today Complains today of cough and shortness of breath 08/22/2021 The patient was seen and examined in telemetry unit and in the Covid room She has been feeling much better and is requiring up to 8 L of oxygen to maintain saturation The cough has been decreased 09/22/2021 The patient was seen and examined in telemetry unit and in the Covid room She has been feeling much better today still requiring about 7 L of oxygen to maintain saturation Her cough is much better She will not be receiving any Lasix as the creatinine noted to be little bit higher Review of Systems Review of Systems: All systems reviewed and are unremarkable except as noted below Respiratory: Moderate shortness of breath at rest Physical Exam Physical Exam: Out of bed on a chair with minimal respiratory distress Constitutional: well developed, well nourished, + ill appearing and + obese Eyes: PERRL, conjunctivae normal, anicteric sclerae ENMT: external ear and nose normal, oropharynx normal Neck: trachea midline, no thyromegaly Respiratory: + respiratory distress, + labored breathing and + cough Auscultation: + diminished lung sounds and + crackles (Minimal crackles at the bases) Cardiovascular: Rate/Rhythm: regular rate and regular rhythm; not tachycardic Heart Sounds: normal S1 and normal S2; no murmur Palpation: normal PMI Extremities: + edema (1+ edema bilaterally) Gastrointestinal (Abdomen): Inspection/Auscultation: + abdomen distended and normal bowel sounds Percussion/Palpation: abdomen soft; abdomen nontender Neurologic: patellar DTR's 2+ bilat, sensation intact Psychiatric: A+Ox3, euthymic affect Lymphatic: no cervical or axillary lymphadenopathy Results & Data Results & Data ([facility]) Vital Signs (Past 12 Hours) Vital Signs Temp Pulse Pulse Resp BP BP Pulse Ox 08/23/21 12:00 37.0 C 82 24 139/83 91 08/23/21 11:55 75 08/23/21 07:53 36.8 C 79 22 121/70 90 08/23/21 06:06 82 132/82 08/23/21 04:08 36.4 C L 80 16 126/78 93 Laboratory Results [facility] 08/23/21 06:30 Sodium 138 Potassium 4.2 Chloride 102 Carbon Dioxide 29 BUN 46 H Creatinine 1.22 H Glucose 79 Calcium 8.6 Medications Administered Current Inpatient Medications Acetaminophen (Acetaminophen 325 Mg Tab) 650 mg PO Q4H PRN PRN Reason: Pain or Fever Stop: 09/19/21 00:03 Last Admin: 08/23/21 06:06 Dose: 650 mg Documented by: Amlodipine Besylate (Amlodipine Besylate 5 Mg Tab) 5 mg PO QAM [facility] Stop: 09/19/21 14:29 Last Admin: 08/23/21 08:55 Dose: 5 mg Documented by: Aspirin (Aspirin 81 Mg Ectab) 81 mg PO DAILY STEPHANIE Stop: 09/19/21 08:59 Last Admin: 08/23/21 08:52 Dose: 81 mg Documented by: Atorvastatin Calcium (Atorvastatin 40 Mg Tab) 40 mg PO HS [facility] Stop: 09/19/21 20:59 Last Admin: 08/22/21 20:15 Dose: 40 mg Documented by: Baricitinib (4 Mg Once Daily X14 Days) 4 mg PO DAILY STEPHANIE; Protocol Stop: 09/03/21 08:59 Last Admin: 08/23/21 08:53 Dose: 4 mg Documented by: Lidocaine HCl 60 ml/Diphenhydramine HCl 150 mg/ Al Hydrox/Mg Hydrox/Simethicone 60 ml/ Glycerin 60 ml/ BARCODE IDENTIFIER 1 ea 0 ml PO Q4H PRN PRN Reason: Sore Throat Stop: 09/21/21 08:12 Last Admin: 08/23/21 06:38 Dose: 5 ml Documented by: Cyanocobalamin (Cyanocobalamin 500 Mcg Tablet (Vitamin B-12)) 1,000 mcg PO QAM STEPHANIE Stop: 09/19/21 08:59 Last Admin: 08/23/21 08:52 Dose: 1,000 mcg Documented by: Dextrose (Dextrose 50% 50 Ml Syringe) 25 - 50 ml IV UD PRN; Protocol PRN Reason: Hypoglycemia Protocol Stop: 09/19/21 05:29 Duloxetine HCl (Duloxetine Hcl 60 Mg Cap) 60 mg PO HS [facility] Stop: 09/19/21 20:59 Last Admin: 08/22/21 21:02 Dose: 60 mg Documented by: Fenofibrate (Fenofibrate Nanocrystallized 145 Mg Tablet) 145 mg PO QAM STEPHANIE Stop: 09/19/21 08:59 Last Admin: 08/23/21 08:55 Dose: 145 mg Documented by: Gabapentin (Gabapentin 300 Mg Cap) 300 mg PO QID STEPHANIE Stop: 09/19/21 08:59 Last Admin: 08/23/21 13:02 Dose: 300 mg Documented by: Glucagon (Glucagon For Inj 1 Mg Vial) 1 mg IM UD PRN; Protocol PRN Reason: Hypoglycemia Protocol Stop: 09/19/21 05:29 Glucose (Glucose 40% Gel 15 Gm Tube) 15 - 30 gm PO UD PRN; Protocol PRN Reason: Hypoglycemia Protocol Stop: 09/19/21 05:29 Glucose (Glucose 10 Tabs/Tube) 4 - 8 tabs PO UD PRN; Protocol PRN Reason: Hypoglycemia Protocol Stop: 09/19/21 05:29 Guaifenesin (Guaifenesin 600 Mg Tabcr) 1,200 mg PO Q12 STEPHANIE Stop: 09/20/21 20:59 Last Admin: 08/23/21 08:52 Dose: 1,200 mg Documented by: Heparin Sodium (Porcine) (Heparin Sod 5,000 Unit/0.5 Ml Vial) 5,000 units SQ Q8 STEPHANIE Stop: 09/19/21 05:59 Last Admin: 08/23/21 13:03 Dose: 5,000 units Documented by: Hydrocodone Bit/Homatropine Methylb (Hydrocodone/Homatropine Syrup 5mg/1.5mg 5ml Udp) 5 ml PO Q6H PRN PRN Reason: Cough Stop: 09/04/21 10:50 Last Admin: 08/22/21 23:49 Dose: 5 ml Documented by: Promethazine HCl 12.5 mg/ (Sodium Chloride) 50.5 mls @ 202 mls/hr IV Q6H PRN PRN Reason: Nausea And Vomiting Stop: 09/19/21 00:03 Remdesivir 100 mg/ Sodium (Chloride) 250 mls @ 250 mls/hr IV Q24H STEPHANIE; Protocol Stop: 08/23/21 20:59 Last Infusion: 08/22/21 21:46 Dose: Infused Documented by: Sodium Chloride (Nss 1000ml) 1,000 mls @ 50 mls/hr IV .Q20H STEPHANIE Stop: 09/19/21 16:44 Last Admin: 08/23/21 00:19 Dose: Not Given Documented by: Dexamethasone 6 mg/ Syringe 1.5 mls @ 1 mls/min IV DAILY STEPHANIE Stop: 09/19/21 06:29 Last Admin: 08/23/21 08:56 Dose: 1 mls/min Documented by: Insulin Aspart (Insulin Aspart 100 Units/Ml 3 Ml Pen) 0 units SC ACHS STEPHANIE; Prot ocol Stop: 09/19/21 07:29 Last Admin: 08/23/21 13:07 Dose: 15 units Documented by: Insulin Glargine (Insulin Glargine Solostar 100 Units/Ml 3 Ml Pen) 40 units SC DAILY STEPHANIE; Protocol Stop: 09/22/21 08:59 Last Admin: 08/23/21 09:34 Dose: 40 units Documented by: Ipratropium [place] (Ipratropium [place] Neb Soln 0.02% 2.5 Ml Vial) 0.5 mg INH Q4H PRN PRN Reason: SOB, WHEEZE Stop: 09/19/21 00:03 Levalbuterol HCl (Levalbuterol 1.25mg/0.5ml Neb) 1.25 mg INH Q4H PRN PRN Reason: SOB, WHEEZE Stop: 09/19/21 00:03 Levothyroxine Sodium (Levothyroxine Sodium 150 Mcg Tablet) 150 mcg PO DAILYBB [facility] Stop: 09/19/21 06:29 Last Admin: 08/23/21 06:06 Dose: 150 mcg Documented by: Menthol (Cough Drop (Sugar Free) Coleen 24 Coleen/1 Box) 1 coleen BUCCAL PRN PRN PRN Reason: Cough Stop: 09/19/21 17:41 Metoprolol Tartrate (Metoprolol Tartrate 1 Mg/Ml Vial) 2.5 mg IV Q6 [facility] Stop: 09/19/21 11:59 Last Admin: 08/23/21 13:02 Dose: 2.5 mg Documented by: Miscellaneous (Carbohydrates For Hypoglycemia ) 15 - 30 gm PO UD PRN PRN Reason: Hypoglycemia Treatment Stop: 09/19/21 05:29 Miscellaneous Information (Pharmacy Glycemic Mgmt Consult) 1 ea N/A UD PRN PRN Reason: Consult Stop: 09/20/21 10:52 Pantoprazole Sodium (Pantoprazole 40 Mg Tab) 40 mg PO QAM [facility] Stop: 09/19/21 08:59 Last Admin: 08/23/21 08:55 Dose: 40 mg Documented by: Sodium Chloride (Sodium Chloride 0.9% 10ml Flush) 30 ml IV Q24H STEPHANIE Stop: 08/24/21 00:05 Last Admin: 08/23/21 00:16 Dose: 30 ml Documented by: Tramadol HCl (Tramadol Hcl 50 Mg Tablet) 25 - 50 mg PO Q4H PRN PRN Reason: Pain Stop: 09/19/21 00:03 Last Admin: 08/23/21 08:51 Dose: 50 mg Documented by:
[2021-08-23] MEDS ORDERED: INSULIN HUMAN REGULAR PER UNIT 8 UNITS in SYRINGE 7.92 ML IV ONE (16:45)
[2021-08-23] MEDS: REMDESIVIR 100 MG in SODIUM CHLORIDE 0.9% 230 ML IV SCH (19:42)
[2021-08-23] MEDS: DULoxetine HCL 60 MG CAP PO SCH (20:07)
[2021-08-23] MEDS: ATORVASTATIN 40 MG TAB PO SCH (20:07)
[2021-08-24] MEDS: METOPROLOL TARTRATE 1 MG/ML VIAL IV SCH ×5 (00:25→23:49)
[2021-08-24] MEDS: SODIUM CHLORIDE 0.9% 1000ML 1,000 ML IV SCH ×2 (00:26→19:48)
[2021-08-24] MEDS: SODIUM CHLORIDE 0.9% 10ML FLUSH IV SCH (00:26)
[2021-08-24] MEDS: INSULIN ASPART 100 UNITS/ML 3 ML PEN SC SCH ×6 (00:31→20:32)
[2021-08-24] MEDS: ACETAMINOPHEN 325 MG TAB PO PRN ×2 (04:34→20:01)
[2021-08-24] MEDS: HEPARIN SOD 5,000 UNIT/0.5 ML VIAL SQ SCH ×3 (05:20→21:58)
[2021-08-24] MEDS: LEVOTHYROXINE SODIUM 150 MCG TABLET PO SCH (05:43)
[2021-08-24 07:25] LABS: BUN Creatinine Ratio 36.7 (10-20); Calcium 9.1 mg/dl (8.5-10.1); Creatinine Clr Calc Pharmacy 88.1 ml/min; Est GFR (African American) 64.5 ml/min; Est GFR (Non-African American) 55.6 ml/min; Potassium 4.1 mmol/L (3.5-5.1)
[2021-08-24] MEDS ORDERED: FUROSEMIDE 40 MG/4 ML VIAL IV ONE (07:54)
--- NOTE | 2021-08-24 08:45 | Pharmacy Report ---
Pharmacy Glycemic Short Note 2 - Date of Service August 24, 2021 - Glycemic Short BSG Results (Last 24 hours): 08/23/21 08/23/21 08/23/21 12:13 16:29 16:29 Glucose POC Glucose 162 H 318 H* 333 H* 08/23/21 08/23/21 08/23/21 18:17 18:18 19:33 Glucose POC Glucose 318 H* 329 H* 297 H 08/23/21 08/23/21 08/24/21 19:39 21:58 00:28 Glucose POC Glucose 307 H* 161 H 79 08/24/21 08/24/21 08/24/21 04:09 04:10 04:31 Glucose POC Glucose 59 L* 57 L* 64 L* 08/24/21 08/24/21 08/24/21 05:12 06:12 07:37 Glucose 78 POC Glucose 83 68 L* 08/24/21 07:39 Glucose POC Glucose 71 OUTPATIENT ANTIDIABETIC REGIMEN: * Toujeo 125 units SQ BID * Novolog SSI * Ozempic 0.5mg qWed * Metformin 1gm PO BID * HbA1c: 7.5% (08/21/21) ASSESSMENT: 08/24: * Pt with critical high BSG prior to dinner yesterday; unsure of reasoning as patient did receive 15 units of NovoLog to cover pre-lunch BSG of 162 mg/dl and 70g CHO consumed. Pt ordered a one time IV bolus by pharmacy and covered per CF/CR with 22 units of Novolog. BSG dropped nicely into range at 161mg/dl. Will tighten CR for today to prevent post-prandial spike. Also loosen CF since previous CF+CR when BSG elevated did result in goal range BSGs when given together per previous parameters. May cause too much a a drop with tightened CR * RN called pharmacy last evening - unfortunately RN gave 8 units at HS because they used the pre-dinner BSG of 333 mg/dl (actual BSG was 161). Pt with repeated low BSGs overnight from too much novolog given. * AM fasting BSG still slightly low at 68 mg/dl this AM. Likely NovoLog from HS has worn off and this may be a reflection of lantus dosing. Will lower lantus slightly. 08/23 * Pt has received 47 units of insulin over the past 24hrs * 40 units of basal with Lantus * 7 units of bolus with NovoLog * BSGs trending LOW yesterday - most likely from the 100 units of Lantus that were given the day prior to transition off of insulin infusion * No LOW BSGs this morning and BSGs trending upwards to goal range. Will continue with Lantus 40 units daily (as this is a 60% reduction from 08/21) and titrate based on BSG trends. Of note, patient does take Toujeo 125 units SQ BID as an outpatient. 08/22/21: * Despite dosing basal insulin at less than half of patient's home dose yesterday, patient was hypoglycemic this morning. * Will hold PM Lantus dose this evening and re-assess in am. * Novolog parameters loosened this afternoon. * Patient is requiring drastically less insulin than she uses at home, which is very surprising, especially given that pt is receiving IV dexamethasone!! * Will continue to follow closely and adjust regimen as needed. 08/21 * Ms Styles is a 50yo diabetic female admitted 08/19 with COVID pna. * Patient was initiated on an IV insulin infusion for severe hyperglycemia. * This morning, BSGs were reasonable and insulin gtt rate was low, so transition was initiated to SQ insulin. * Pt is receiving daily IV dexamethasone, which is expected to contribute to significant steroid-induced hyperglycemia. * Pt is receiving daily remdesivir currently. * Pharmacy glycemic mgmt service followed patient in 2019, and her home regimen was similar at that time. Will utilize data from that admission to help guide insulin dosing this admission. PLAN FOR INPATIENT GLYCEMIC CONTROL: * Hold outpatient oral diabetes medications * Basal insulin: decrease * Lantus 40 to 35 units SQ daily in AM * Bolus insulin: loosen CF and tighten CF * NovoLog per scale ACHS or Q6hrs while NPO, plus 0000 and 0400 * Goal Range: Low 110 mg/dL - High 150 mg/dL * Correction Factor: 20 mg/dL/unit * Nutritional / Prandial insulin per carb ratio of 1 unit per 4.5 grams CHO consumed PLAN FOR DISCHARGE: * A1c is in goal range - no changes needed at dc.
[2021-08-24] MEDS: traMADol HCL 50 MG TABLET PO PRN ×2 (09:03→20:00)
[2021-08-24] MEDS: dexAMETHasone 6 MG in SYRINGE 0 ML IV SCH (09:04)
[2021-08-24] MEDS: 4 mg Once Daily x14 days PO SCH (09:04)
[2021-08-24] MEDS: ASPIRIN 81 MG ECTAB PO SCH (09:04)
[2021-08-24] MEDS: PANTOprazole 40 MG TAB PO SCH (09:07)
[2021-08-24] MEDS: GABAPENTIN 300 MG CAP PO SCH ×4 (09:07→20:03)
[2021-08-24] MEDS: guaiFENesin 600 MG TABCR PO SCH ×2 (09:07→20:02)
[2021-08-24] MEDS: amLODIPine BESYLATE 5 MG TAB PO SCH (09:08)
[2021-08-24] MEDS: CYANOCOBALAMIN 500 MCG TABLET (VITAMIN B-12) PO SCH (09:08)
[2021-08-24] MEDS: INSULIN GLARGINE SOLOSTAR 100 UNITS/ML 3 ML PEN SC SCH (09:26)
[2021-08-24] MEDS: FENOFIBRATE NANOCRYSTALLIZED 145 MG TABLET PO SCH (10:42)
--- NOTE | 2021-08-24 13:27 | Hospitalist Progress Note ---
Date of Service August 24, 2021 Assessment & Plan (1) Acute hypoxemic respiratory failure: Plan: Secondary to severe COVID-19 pneumonia Management as below (2) Pneumonia due to 2019-nCoV: Plan: She is fully vaccinated Required BiPAP BiPAP on admission Has been on Decadron and Remdesivir for severe COVID-19 pneumonia. Appreciate pulmonary input and recommendation Did not fulfill the criteria for Tocilizumab but has been started on Baricitinib by the automatic lump making machine tender Has been requiring high flow oxygen to maintain saturation We will keep her on the rotary drier feeder side and will use Lasix as needed Cough suppressant and oxygen as needed with occasional proningif possible Clinically eligible better and will continue current medications We will give a dose of Lasix 60 mg today 08/22/2021 Has been feeling much better and has been requiring 7 L of oxygen via nasal cannula to maintain saturation Her cough has improved but today she requires up to 15 L of oxygen to maintain saturation Creatinine shows improvement and will give 60 of IV Lasix today 08/24/2021 (3) Elevated troponin: Plan: Troponin was elevated up to 0.19 Likely secondary to Covid infection and doubt any ACS Trending down Denies any cardiac symptoms (4) DM (diabetes mellitus): Plan: Recent outpatient hemoglobin A1c 6.16 January 2021 Basal insulin adjusted for n.p.o. status, ISS BG goal 1 10-1 40, update hemoglobin A1c-7.5 Placement pharmacy consulted for diabetes management Blood sugar seems to be stable (5) HTN (hypertension): Plan: Hypertension, elevated secondary to anxiety/discomfort Remains on the upper side Holding ARB for increasing creatinine Will start amlodipine to control blood pressure Blood pressure remains stable Acute kidney injury ARF on CKD secondary to illness Monitor creatinine/lactic acid response to IVF Appropriate to hold home diuretics and ARB until creatinine back to baseline Initiate amlodipine if with persistent BP elevation while home diuretic/ARB on hold. Creatinine is minimally high at 1.22-will not give any Lasix today 08/23/2021 Creatinine has improved and will give another dose of Lasix today Plan: Hyperlipidemia On Statin DVT prophylaxis Heparin subcu Full code Patient daughter requesting updates from providers. Ms. Tabatha Mathias, contact #[phone]. Admission and Anticipated Discharge Date Admission Date: August 19, 2021 Subjective 08/20/2021 The patient was seen and examined in telemetry unit and in the Covid room She has not been feeling any better since admission though she is off BiPAP now Has been complaining of cough with shortness of breath Denies any fever and/or chills and no chest pain or palpitation 08/21/2021 The patient was seen and examined in telemetry unit and in the Covid room She has been feeling much better today Complains today of cough and shortness of breath 08/22/2021 The patient was seen and examined in telemetry unit and in the Covid room She has been feeling much better and is requiring up to 8 L of oxygen to maintain saturation The cough has been decreased 08/23/2021 The patient was seen and examined in telemetry unit and in the Covid room She has been feeling much better today still requiring about 7 L of oxygen to maintain saturation Her cough is much better She will not be receiving any Lasix as the creatinine noted to be little bit higher 08/24/2021 The patient was seen and examined in telemetry unit and in the Covid room Her condition has deteriorated since yesterday and has been requiring up to 15 L of oxygen to maintain saturation Denies any significant cough but remains tired and lethargic Review of Systems Review of Systems: All systems reviewed and are unremarkable except as noted below Respiratory: Moderate shortness of breath at rest Physical Exam Physical Exam: Lying in bed with moderate shortness of breath at rest Constitutional: well developed, well nourished, + ill appearing and + obese Eyes: PERRL, conjunctivae normal, anicteric sclerae ENMT: external ear and nose normal, oropharynx normal Neck: trachea midline, no thyromegaly Respiratory: + respiratory distress, + labored breathing and + cough Auscultation: + diminished lung sounds and + crackles (Minimal crackles at the bases) Cardiovascular: Rate/Rhythm: regular rate and regular rhythm; not tachycardic Heart Sounds: normal S1 and normal S2; no murmur Palpation: normal PMI Extremities: + edema (1+ edema bilaterally) Gastrointestinal (Abdomen): Inspection/Auscultation: + abdomen distended and normal bowel sounds Percussion/Palpation: abdomen soft; abdomen nontender Musculoskeletal: No acute arthritis in any joint Neurologic: patellar DTR's 2+ bilat, sensation intact Psychiatric: A+Ox3, euthymic affect Lymphatic: no cervical or axillary lymphadenopathy Results & Data Results & Data ([facility] [place]) Vital Signs (Past 12 Hours) Vital Signs Temp Pulse Pulse Resp BP BP Pulse Ox 08/24/21 11:40 36.6 C 85 24 135/83 91 08/24/21 07:39 36.4 C L 83 22 111/73 94 08/24/21 05:17 86 127/81 08/24/21 05:15 86 127/81 08/24/21 04:03 36.4 C L 86 22 130/78 90 Laboratory Results [facility] 08/24/21 06:12 Sodium 137 Potassium 4.1 Chloride 103 Carbon Dioxide 26 BUN 43 H Creatinine 1.16 Glucose 78 Calcium 9.1 Medications Administered Current Inpatient Medications Acetaminophen (Acetaminophen 325 Mg Tab) 650 mg PO Q4H PRN PRN Reason: Pain or Fever Stop: 09/19/21 00:03 Last Admin: 08/24/21 04:34 Dose: 650 mg Documented by: Amlodipine Besylate (Amlodipine Besylate 5 Mg Tab) 5 mg PO QAM [facility] Stop: 09/19/21 14:29 Last Admin: 08/24/21 09:08 Dose: 5 mg Documented by: Aspirin (Aspirin 81 Mg Ectab) 81 mg PO DAILY [facility] Stop: 09/19/21 08:59 Last Admin: 08/24/21 09:04 Dose: 81 mg Documented by: Atorvastatin Calcium (Atorvastatin 40 Mg Tab) 40 mg PO HS [facility] Stop: 09/19/21 20:59 Last Admin: 08/23/21 20:07 Dose: 40 mg Documented by: Baricitinib (4 Mg Once Daily X14 Days) 4 mg PO DAILY [facility]; Protocol Stop: 09/03/21 08:59 Last Admin: 08/24/21 09:04 Dose: 4 mg Documented by: Lidocaine HCl 60 ml/Diphenhydramine HCl 150 mg/ Al Hydrox/Mg Hydrox/Simethicone 60 ml/ Glycerin 60 ml/ BARCODE IDENTIFIER 1 ea 0 ml PO Q4H PRN PRN Reason: Sore Throat Stop: 09/21/21 08:12 Last Admin: 08/23/21 06:38 Dose: 5 ml Documented by: Cyanocobalamin (Cyanocobalamin 500 Mcg Tablet (Vitamin B-12)) 1,000 mcg PO QAM STEPHANIE Stop: 09/19/21 08:59 Last Admin: 08/24/21 09:08 Dose: 1,000 mcg Documented by: Dextrose (Dextrose 50% 50 Ml Syringe) 25 - 50 ml IV UD PRN; Protocol PRN Reason: Hypoglycemia Protocol Stop: 09/19/21 05:29 Duloxetine HCl (Duloxetine Hcl 60 Mg Cap) 60 mg PO HS [facility] Stop: 09/19/21 20:59 Last Admin: 08/23/21 20:07 Dose: 60 mg Documented by: Fenofibrate (Fenofibrate Nanocrystallized 145 Mg Tablet) 145 mg PO QAM STE[facility]IE Stop: 09/19/21 08:59 Last Admin: 08/24/21 10:42 Dose: 145 mg Documented by: Gabapentin (Gabapentin 300 Mg Cap) 300 mg PO QID STE[facility]IE Stop: 09/19/21 08:59 Last Admin: 08/24/21 12:29 Dose: 300 mg Documented by: Glucagon (Glucagon For Inj 1 Mg Vial) 1 mg IM UD PRN; Protocol PRN Reason: Hypoglycemia Protocol Stop: 09/19/21 05:29 Glucose (Glucose 40% Gel 15 Gm Tube) 15 - 30 gm PO UD PRN; Protocol PRN Reason: Hypoglycemia Protocol Stop: 09/19/21 05:29 Glucose (Glucose 10 Tabs/Tube) 4 - 8 tabs PO UD PRN; Protocol PRN Reason: Hypoglycemia Protocol Stop: 09/19/21 05:29 Guaifenesin (Guaifenesin 600 Mg Tabcr) 1,200 mg PO Q12 [facility] Stop: 09/20/21 20:59 Last Admin: 08/24/21 09:07 Dose: 1,200 mg Documented by: Heparin Sodium (Porcine) (Heparin Sod 5,000 Unit/0.5 Ml Vial) 5,000 units SQ Q8 STEPH[facility]IE Stop: 09/19/21 05:59 Last Admin: 08/24/21 12:50 Dose: 5,000 units Documented by: Hydrocodone Bit/Homatropine Methylb (Hydrocodone/Homatropine Syrup 5mg/1.5mg 5ml Udp) 5 ml PO Q6H PRN PRN Reason: Cough Stop: 09/04/21 10:50 Last Admin: 08/22/21 23:49 Dose: 5 ml Documented by: Promethazine HCl 12.5 mg/ (Sodium Chloride) 50.5 mls @ 202 mls/hr IV Q6H PRN PRN Reason: Nausea And Vomiting Stop: 09/19/21 00:03 Sodium Chloride (Nss 1000ml) 1,000 mls @ 50 mls/hr IV .Q20H [facility] Stop: 09/19/21 16:44 Last Admin: 08/24/21 00:26 Dose: Not Given Documented by: Dexamethasone 6 mg/ Syringe 1.5 mls @ 1 mls/min IV DAILY STEPHANIE Stop: 09/19/21 06:29 Last Admin: 08/24/21 09:04 Dose: 1 mls/min Documented by: Insulin Aspart (Insulin Aspart 100 Units/Ml 3 Ml Pen) 0 units SC ACHS [facility]; Protocol Stop: 09/19/21 07:29 Last Admin: 08/24/21 12:49 Dose: 7 units Documented by: Insulin Glargine (Insulin Glargine Solostar 100 Units/Ml 3 Ml Pen) 35 units SC DAILY [facility]; Protocol Stop: 09/23/21 08:59 Last Admin: 08/24/21 09:26 Dose: 35 units Documented by: Ipratropium Renovo (Ipratropium [place] Neb Soln 0.02% 2.5 Ml Vial) 0.5 mg INH Q4H PRN PRN Reason: SOB, WHEEZE Stop: 09/19/21 00:03 Levalbuterol HCl (Levalbuterol 1.25mg/0.5ml Neb) 1.25 mg INH Q4H PRN PRN Reason: SOB, WHEEZE Stop: 09/19/21 00:03 Levothyroxine Sodium (Levothyroxine Sodium 150 Mcg Tablet) 150 mcg PO DAILYBB [facility] Stop: 09/19/21 06:29 Last Admin: 08/24/21 05:43 Dose: 150 mcg Documented by: Menthol (Cough Drop (Sugar Free) Emelyn 24 Emelyn/1 Box) 1 emelyn BUCCAL PRN PRN PRN Reason: Cough Stop: 09/19/21 17:41 Metoprolol Tartrate (Metoprolol Tartrate 1 Mg/Ml Vial) 2.5 mg IV Q6 [facility] Stop: 09/19/21 11:59 Last Admin: 08/24/21 12:48 Dose: 2.5 mg Documented by: Miscellaneous (Carbohydrates For Hypoglycemia ) 15 - 30 gm PO UD PRN PRN Reason: Hypoglycemia Treatment Stop: 09/19/21 05:29 Last Admin: 08/24/21 04:32 Dose: 15 gm Documented by: Miscellaneous Information (Pharmacy Glycemic Mgmt Consult) 1 ea N/A UD PRN PRN Reason: Consult Stop: 09/20/21 10:52 Pantoprazole Sodium (Pantoprazole 40 Mg Tab) 40 mg PO QAM [facility] Stop: 09/19/21 08:59 Last Admin: 08/24/21 09:07 Dose: 40 mg Documented by: Tramadol HCl (Tramadol Hcl 50 Mg Tablet) 25 - 50 mg PO Q4H PRN PRN Reason: Pain Stop: 09/19/21 00:03 Last Admin: 08/24/21 09:03 Dose: 50 mg Documented by:
[2021-08-24] MEDS: ATORVASTATIN 40 MG TAB PO SCH (20:01)
[2021-08-24] MEDS: DULoxetine HCL 60 MG CAP PO SCH (20:02)
[2021-08-24] MEDS: HYDROcodone/HOMATROPINE SYRUP 5MG/1.5MG 5ML UDP PO PRN (21:56)
[2021-08-25] MEDS: traMADol HCL 50 MG TABLET PO PRN (05:34)
[2021-08-25] MEDS: LEVOTHYROXINE SODIUM 150 MCG TABLET PO SCH (05:34)
[2021-08-25] MEDS: ACETAMINOPHEN 325 MG TAB PO PRN ×2 (05:34→21:16)
[2021-08-25] MEDS: HYDROcodone/HOMATROPINE SYRUP 5MG/1.5MG 5ML UDP PO PRN ×2 (05:35→21:16)
[2021-08-25] MEDS: LIDOCAINE VISCOUS 2% SOLN 60 ML, diphenhydrAMINE Syrup 150 MG, ALUMINUM/MAGNESIUM SUSP ... PO PRN ×2 (05:35→12:35)
[2021-08-25] MEDS: HEPARIN SOD 5,000 UNIT/0.5 ML VIAL SQ SCH ×3 (05:36→21:18)
[2021-08-25 07:43] LABS: BUN Creatinine Ratio 35.6 (10-20); Calcium 9.1 mg/dl (8.5-10.1); Creatinine Clr Calc Pharmacy 75.8 ml/min; Est GFR (African American) 55.7 ml/min; Magnesium 1.9 mg/dl (1.8-2.4); Potassium 4.1 mmol/L (3.5-5.1)
[2021-08-25] MEDS: 4 mg Once Daily x14 days PO SCH (08:55)
[2021-08-25] MEDS: dexAMETHasone 6 MG in SYRINGE 0 ML IV SCH (08:55)
[2021-08-25] MEDS: CYANOCOBALAMIN 500 MCG TABLET (VITAMIN B-12) PO SCH (08:56)
[2021-08-25] MEDS: FENOFIBRATE NANOCRYSTALLIZED 145 MG TABLET PO SCH (08:56)
[2021-08-25] MEDS: ASPIRIN 81 MG ECTAB PO SCH (08:56)
[2021-08-25] MEDS: PANTOprazole 40 MG TAB PO SCH (08:56)
[2021-08-25] MEDS: GABAPENTIN 300 MG CAP PO SCH ×4 (08:58→21:17)
[2021-08-25] MEDS: amLODIPine BESYLATE 5 MG TAB PO SCH (08:58)
[2021-08-25] MEDS: guaiFENesin 600 MG TABCR PO SCH ×2 (08:58→21:17)
[2021-08-25] MEDS: INSULIN GLARGINE SOLOSTAR 100 UNITS/ML 3 ML PEN SC SCH (10:06)
[2021-08-25] MEDS: INSULIN ASPART 100 UNITS/ML 3 ML PEN SC SCH ×4 (10:07→21:21)
--- NOTE | 2021-08-25 13:05 | Hospitalist Progress Note ---
Date of Service August 25, 2021 Assessment & Plan (1) Acute hypoxemic respiratory failure: Plan: Secondary to severe COVID-19 pneumonia Management as below (2) Pneumonia due to 2019-nCoV: Plan: She is fully vaccinated Required BiPAP BiPAP on admission Has been on Decadron and Remdesivir for severe COVID-19 pneumonia. Appreciate pulmonary input and recommendation Did not fulfill the criteria for Tocilizumab but has been started on Baricitinib by the lab clerk Has been requiring high flow oxygen to maintain saturation We will keep her on the skin drier side and will use Lasix as needed Cough suppressant and oxygen as needed with occasional proningif possible Clinically eligible better and will continue current medications We will give a dose of Lasix 60 mg today 08/22/2021 Has been feeling much better and has been requiring 7 L of oxygen via nasal cannula to maintain saturation Her cough has improved but today she requires up to 15 L of oxygen to maintain saturation Creatinine shows improvement and will give 60 of IV Lasix today 08/24/2021 Creatinine is slightly up at 1.31 and will not give any more Lasix today Condition has not improved much (3) Elevated troponin: Plan: Troponin was elevated up to 0.19 Likely secondary to Covid infection and doubt any ACS Trending down Denies any cardiac symptoms (4) DM (diabetes mellitus): Plan: Recent outpatient hemoglobin A1c 6.16 January 2021 Basal insulin adjusted for n.p.o. 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 Creatinine is minimally high at 1.22-will not give any Lasix today 08/23/2021 Creatinine has improved and will give another dose of Lasix today Plan: Hyperlipidemia On Statin DVT prophylaxis Heparin subcu Full code Patient daughter requesting updates from providers. Ms. Edouarde Stew, contact #[phone]. We will ask for PT and OT evaluation Admission and Anticipated Discharge Date Admission Date: August 19, 2021 Subjective 08/20/2021 The patient was seen and examined in telemetry unit and in the Covid room She has not been feeling any better since admission though she is off BiPAP now Has been complaining of cough with shortness of breath Denies any fever and/or chills and no chest pain or palpitation 08/21/2021 The patient was seen and examined in telemetry unit and in the Covid room She has been feeling much better today Complains today of cough and shortness of breath 08/22/2021 The patient was seen and examined in telemetry unit and in the Covid room She has been feeling much better and is requiring up to 8 L of oxygen to maintain saturation The cough has been decreased 08/23/2021 The patient was seen and examined in telemetry unit and in the Covid room She has been feeling much better today still requiring about 7 L of oxygen to maintain saturation Her cough is much better She will not be receiving any Lasix as the creatinine noted to be little bit higher 08/24/2021 The patient was seen and examined in telemetry unit and in the Covid room Her condition has deteriorated since yesterday and has been requiring up to 15 L of oxygen to maintain saturation Denies any significant cough but remains tired and lethargic 08/25/2021 The patient was seen and examined in telemetry unit and in the Covid room She is a little worse today and has been requiring up to 13 L of oxygen to maintain saturation Remains very weak and lethargic Review of Systems Review of Systems: All systems reviewed and are unremarkable except as noted below Respiratory: Moderate shortness of breath at rest Physical Exam Physical Exam: Lying in bed with moderate shortness of breath at rest Constitutional: well developed, well nourished, + ill appearing and + obese Eyes: PERRL, conjunctivae normal, anicteric sclerae ENMT: external ear and nose normal, oropharynx normal Neck: trachea midline, no thyromegaly Respiratory: + respiratory distress, + labored breathing and + cough Auscultation: + diminished lung sounds and + crackles (Minimal crackles at the bases) Cardiovascular: Rate/Rhythm: regular rate and regular rhythm; not tachycardic Heart Sounds: normal S1 and normal S2; no murmur Palpation: normal PMI Extremities: + edema (1+ edema bilaterally) Gastrointestinal (Abdomen): Inspection/Auscultation: + abdomen distended and normal bowel sounds Percussion/Palpation: abdomen soft; abdomen nontender Musculoskeletal: No acute arthritis in any joint Neurologic: patellar DTR's 2+ bilat, sensation intact Psychiatric: A+Ox3, euthymic affect Lymphatic: no cervical or axillary lymphadenopathy Results & Data Results & Data ([facility]) Vital Signs (Past 12 Hours) Vital Signs Temp Pulse Resp BP Pulse Ox 08/25/21 11:33 36.4 C L 85 20 150/85 H 91 08/25/21 07:23 36.8 C 84 23 127/71 92 08/25/21 04:16 36.7 C 84 18 127/79 97 Laboratory Results [facility] 08/25/21 06:28 Sodium 139 Potassium 4.1 Chloride 104 Carbon Dioxide 28 BUN 47 H Creatinine 1.31 H Glucose 86 Calcium 9.1 Medications Administered Current Inpatient Medications Acetaminophen (Acetaminophen 325 Mg Tab) 650 mg PO Q4H PRN PRN Reason: Pain or Fever Stop: 09/19/21 00:03 Last Admin: 08/25/21 05:34 Dose: 650 mg Documented by: Amlodipine Besylate (Amlodipine Besylate 5 Mg Tab) 5 mg PO QAM STEPHANIE Stop: 09/19/21 14:29 Last Admin: 08/25/21 08:58 Dose: 5 mg Documented by: Aspirin (Aspirin 81 Mg Ectab) 81 mg PO DAILY [facility] Stop: 09/19/21 08:59 Last Admin: 08/25/21 08:56 Dose: 81 mg Documented by: Atorvastatin Calcium (Atorvastatin 40 Mg Tab) 40 mg PO HS [facility] Stop: 09/19/21 20:59 Last Admin: 08/24/21 20:01 Dose: 40 mg Documented by: Baricitinib (4 Mg Once Daily X14 Days) 4 mg PO DAILY STEPHANIE; Protocol Stop: 09/03/21 08:59 Last Admin: 08/25/21 08:55 Dose: 4 mg Documented by: Lidocaine HCl 60 ml/Diphenhydramine HCl 150 mg/ Al Hydrox/Mg Hydrox/Simethicone 60 ml/ Glycerin 60 ml/ [employer] 1 ea 0 ml PO Q4H PRN PRN Reason: Sore Throat Stop: 09/21/21 08:12 Last Admin: 08/25/21 12:35 Dose: 5 ml Documented by: Cyanocobalamin (Cyanocobalamin 500 Mcg Tablet (Vitamin B-12)) 1,000 mcg PO QAM STEPHANIE Stop: 09/19/21 08:59 Last Admin: 08/25/21 08:56 Dose: 1,000 mcg Documented by: Dextrose (Dextrose 50% 50 Ml Syringe) 25 - 50 ml IV UD PRN; Protocol PRN Reason: Hypoglycemia Protocol Stop: 09/19/21 05:29 Duloxetine HCl (Duloxetine Hcl 60 Mg Cap) 60 mg PO HS STEPHANIE Stop: 09/19/21 20:59 Last Admin: 08/24/21 20:02 Dose: 60 mg Documented by: Fenofibrate (Fenofibrate Nanocrystallized 145 Mg Tablet) 145 mg PO QAM STEPHANIE Stop: 09/19/21 08:59 Last Admin: 08/25/21 08:56 Dose: 145 mg Documented by: Gabapentin (Gabapentin 300 Mg Cap) 300 mg PO QID STEPHANIE Stop: 09/19/21 08:59 Last Admin: 08/25/21 12:33 Dose: 300 mg Documented by: Glucagon (Glucagon For Inj 1 Mg Vial) 1 mg IM UD PRN; Protocol PRN Reason: Hypoglycemia Protocol Stop: 09/19/21 05:29 Glucose (Glucose 40% Gel 15 Gm Tube) 15 - 30 gm PO UD PRN; Protocol PRN Reason: Hypoglycemia Protocol Stop: 09/19/21 05:29 Glucose (Glucose 10 Tabs/Tube) 4 - 8 tabs PO UD PRN; Protocol PRN Reason: Hypoglycemia Protocol Stop: 09/19/21 05:29 Guaifenesin (Guaifenesin 600 Mg Tabcr) 1,200 mg PO Q12 STEPHANIE Stop: 09/20/21 20:59 Last Admin: 08/25/21 08:58 Dose: 1,200 mg Documented by: Heparin Sodium (Porcine) (Heparin Sod 5,000 Unit/0.5 Ml Vial) 5,000 units SQ Q8 STEPHANIE Stop: 09/19/21 05:59 Last Admin: 08/25/21 12:40 Dose: 5,000 units Documented by: Hydrocodone Bit/Homatropine Methylb (Hydrocodone/Homatropine Syrup 5mg/1.5mg 5ml Udp) 5 ml PO Q6H PRN PRN Reason: Cough Stop: 09/04/21 10:50 Last Admin: 08/25/21 05:35 Dose: 5 ml Documented by: Promethazine HCl 12.5 mg/ (Sodium Chloride) 50.5 mls @ 202 mls/hr IV Q6H PRN PRN Reason: Nausea And Vomiting Stop: 09/19/21 00:03 Dexamethasone 6 mg/ Syringe 1.5 mls @ 1 mls/min IV DAILY STEPHANIE Stop: 09/19/21 06:29 Last Admin: 08/25/21 08:55 Dose: 1 mls/min Documented by: Insulin Aspart (Insulin Aspart 100 Units/Ml 3 Ml Pen) 0 units SC ACHS STEPHANIE; Protocol Stop: 09/19/21 07:29 Last Admin: 08/25/21 10:07 Dose: 1 units Documented by: Insulin Glargine (Insulin Glargine Solostar 100 Units/Ml 3 Ml Pen) 35 units SC DAILY STEPHANIE; Protocol Stop: 09/23/21 08:59 Last Admin: 08/25/21 10:06 Dose: 35 units Documented by: Ipratropium [place] (Ipratropium [place] Neb Soln 0.02% 2.5 Ml Vial) 0.5 mg INH Q4H PRN PRN Reason: SOB, WHEEZE Stop: 09/19/21 00:03 Levalbuterol HCl (Levalbuterol 1.25mg/0.5ml Neb) 1.25 mg INH Q4H PRN PRN Reason: SOB, WHEEZE Stop: 09/19/21 00:03 Levothyroxine Sodium (Levothyroxine Sodium 150 Mcg Tablet) 150 mcg PO DAILYBB STEPHANIE Stop: 09/19/21 06:29 Last Admin: 08/25/21 05:34 Dose: 150 mcg Documented by: Menthol (Cough Drop (Sugar Free) Coleen 24 Coleen/1 Box) 1 coleen BUCCAL PRN PRN PRN Reason: Cough Stop: 09/19/21 17:41 Miscellaneous (Carbohydrates For Hypoglycemia ) 15 - 30 gm PO UD PRN PRN Reason: Hypoglycemia Treatment Stop: 09/19/21 05:29 Last Admin: 08/24/21 04:32 Dose: 15 gm Documented by: Miscellaneous Information (Pharmacy Glycemic Mgmt Consult) 1 ea N/A UD PRN PRN Reason: Consult Stop: 09/20/21 10:52 Pantoprazole Sodium (Pantoprazole 40 Mg Tab) 40 mg PO QAM STEPHANIE Stop: 09/19/21 08:59 Last Admin: 08/25/21 08:56 Dose: 40 mg Documented by: Tramadol HCl (Tramadol Hcl 50 Mg Tablet) 25 - 50 mg PO Q4H PRN PRN Reason: Pain Stop: 09/19/21 00:03 Last Admin: 08/25/21 05:34 Dose: 50 mg Documented by:
[2021-08-25] MEDS: ATORVASTATIN 40 MG TAB PO SCH (21:17)
[2021-08-25] MEDS: DULoxetine HCL 60 MG CAP PO SCH (21:17)
[2021-08-26] MEDS: ACETAMINOPHEN 325 MG TAB PO PRN (02:45)
[2021-08-26] MEDS: HEPARIN SOD 5,000 UNIT/0.5 ML VIAL SQ SCH ×3 (06:20→21:19)
[2021-08-26] MEDS: LEVOTHYROXINE SODIUM 150 MCG TABLET PO SCH (06:20)
[2021-08-26] MEDS: guaiFENesin 600 MG TABCR PO SCH ×2 (08:48→20:09)
[2021-08-26] MEDS: CYANOCOBALAMIN 500 MCG TABLET (VITAMIN B-12) PO SCH (08:48)
[2021-08-26] MEDS: GABAPENTIN 300 MG CAP PO SCH ×4 (08:48→20:08)
[2021-08-26] MEDS: FENOFIBRATE NANOCRYSTALLIZED 145 MG TABLET PO SCH (08:49)
[2021-08-26] MEDS: ASPIRIN 81 MG ECTAB PO SCH (08:49)
[2021-08-26] MEDS: amLODIPine BESYLATE 5 MG TAB PO SCH (08:49)
[2021-08-26] MEDS: dexAMETHasone 6 MG in SYRINGE 0 ML IV SCH (08:49)
[2021-08-26] MEDS: PANTOprazole 40 MG TAB PO SCH (08:49)
[2021-08-26] MEDS: LIDOCAINE VISCOUS 2% SOLN 60 ML, diphenhydrAMINE Syrup 150 MG, ALUMINUM/MAGNESIUM SUSP ... PO PRN ×4 (08:56→21:19)
[2021-08-26] MEDS: 4 mg Once Daily x14 days PO SCH (09:00)
[2021-08-26] MEDS: INSULIN ASPART 100 UNITS/ML 3 ML PEN SC SCH ×4 (09:22→21:00)
[2021-08-26] MEDS: INSULIN GLARGINE SOLOSTAR 100 UNITS/ML 3 ML PEN SC SCH (09:23)
[2021-08-26 10:33] LABS: BUN Creatinine Ratio 33.5 (10-20); Calcium 9.6 mg/dl (8.5-10.1); Creatinine Clr Calc Pharmacy 74.8 ml/min; Est GFR (African American) 54.7 ml/min; Est GFR (Non-African American) 47.2 ml/min; Potassium 3.8 mmol/L (3.5-5.1)
[2021-08-26 10:42] LABS: Phosphorus 2.2 mg/dl (2.5-4.9)
--- NOTE | 2021-08-26 12:37 | Pharmacy Report ---
Pharmacy Glycemic Short Note 2 - Date of Service August 26, 2021 - Glycemic Short BSG Results (Last 24 hours): 08/25/21 08/25/21 08/26/21 16:17 21:02 08:04 Glucose POC Glucose 244 H 203 H 139 H 08/26/21 08/26/21 09:44 11:48 Glucose 178 H POC Glucose 213 H OUTPATIENT ANTIDIABETIC REGIMEN: * Toujeo 125 units SQ BID * Novolog SSI * Ozempic 0.5mg qWed * Metformin 1gm PO BID * HbA1c: 7.5% (08/21/21) ASSESSMENT: 08/26/21: * Fasting BSG has been reasonable on current dose of Lantus. * Novolog parameters tightened very slightly today to provide additional carb coverage, as pt's BSGs have been trending up throughout the day. * Will continue to follow and adjust as needed. 08/24 * Pt with critical high BSG prior to dinner yesterday; unsure of reasoning as patient did receive 15 units of NovoLog to cover pre-lunch BSG of 162 mg/dl and 70g CHO consumed. Pt ordered a one time IV bolus by pharmacy and covered per CF/CR with 22 units of Novolog. BSG dropped nicely into range at 161mg/dl. Will tighten CR for today to prevent post-prandial spike. Also loosen CF since previous CF+CR when BSG elevated did result in goal range BSGs when given together per previous parameters. May cause too much a a drop with tightened CR * RN called pharmacy last evening - unfortunately RN gave 8 units at HS because they used the pre-dinner BSG of 333 mg/dl (actual BSG was 161). Pt with re peated low BSGs overnight from too much novolog given. * AM fasting BSG still slightly low at 68 mg/dl this AM. Likely NovoLog from HS has worn off and this may be a reflection of lantus dosing. Will lower lantus slightly. 08/23 * Pt has received 47 units of insulin over the past 24hrs * 40 units of basal with Lantus * 7 units of bolus with NovoLog * BSGs trending LOW yesterday - most likely from the 100 units of Lantus that were given the day prior to transition off of insulin infusion * No LOW BSGs this morning and BSGs trending upwards to goal range. Will continue with Lantus 40 units daily (as this is a 60% reduction from 08/21) and titrate based on BSG trends. Of note, patient does take Toujeo 125 units SQ BID as an outpatient. 08/22 * Despite dosing basal insulin at less than half of patient's home dose yesterday, patient was hypoglycemic this morning. * Will hold PM Lantus dose this evening and re-assess in am. * Novolog parameters loosened this afternoon. * Patient is requiring drastically less insulin than she uses at home, which is very surprising, especially given that pt is receiving IV dexamethasone!! * Will continue to follow closely and adjust regimen as needed. 08/21 * Ms Styles is a 50yo diabetic female admitted 08/19 with COVID pna. * Patient was initiated on an IV insulin infusion for severe hyperglycemia. * This morning, BSGs were reasonable and insulin gtt rate was low, so transition was initiated to SQ insulin. * Pt is receiving daily IV dexamethasone, which is expected to contribute to significant steroid-induced hyperglycemia. * Pt is receiving daily remdesivir currently. * Pharmacy glycemic mgmt service followed patient in 2019, and her home regimen was similar at that time. Will utilize data from that admission to help guide insulin dosing this admission. PLAN FOR INPATIENT GLYCEMIC CONTROL: * Hold outpatient oral diabetes medications * Basal insulin: * Lantus 35 units SQ daily in AM * Bolus insulin: loosen CF and tighten CF * NovoLog per scale ACHS or Q6hrs while NPO * Goal Range: Low 110 mg/dL - High 150 mg/dL * Correction Factor: 20 mg/dL/unit * Nutritional / Prandial insulin per carb ratio of 1 unit per 4 grams CHO consumed PLAN FOR DISCHARGE: * A1c is in goal range - no changes needed at dc.
[2021-08-26] MEDS: HYDROcodone/HOMATROPINE SYRUP 5MG/1.5MG 5ML UDP PO PRN ×2 (12:50→20:21)
--- NOTE | 2021-08-26 15:01 | Hospitalist Progress Note ---
Date of Service August 26, 2021 Assessment & Plan (1) Acute hypoxemic respiratory failure: Plan: Secondary to severe COVID-19 pneumonia Management as below (2) Pneumonia due to 2019-nCoV: Plan: She is fully vaccinated Required BiPAP BiPAP on admission Has been on Decadron and Remdesivir for severe COVID-19 pneumonia. Appreciate pulmonary input and recommendation Did not fulfill the criteria for Tocilizumab but has been started on Baricitinib by the web programmer Has been requiring high flow oxygen to maintain saturation We will keep her on the yolk spray drier side and will use Lasix as needed Cough suppressant and oxygen as needed with occasional proningif possible Clinically eligible better and will continue current medications We will give a dose of Lasix 60 mg today 08/22/2021 Has been feeling much better and has been requiring 7 L of oxygen via nasal cannula to maintain saturation Her cough has improved but today she requires up to 15 L of oxygen to maintain saturation Creatinine shows improvement and will give 60 of IV Lasix today 08/24/2021 Creatinine is slightly up at 1.31 and will not give any more Lasix today Slightly better today and has been requiring up to 9 L of oxygen to maintain saturation Her baricitinib has been decreased to 2 mg daily given the value of creatinine No Lasix as of today due to increase in creatinine Strongly advised to participate in physical therapy (3) Elevated troponin: Plan: Troponin was elevated up to 0.19 Likely secondary to Covid infection and doubt any ACS Trending down Denies any cardiac symptoms (4) DM (diabetes mellitus): Plan: Recent outpatient hemoglobin A1c 6.16 January 2021 Basal insulin adjusted for n.p.o. 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 Creatinine is minimally high at 1.22-will not give any Lasix today 08/23/2021 Will not give any Lasix today due to impaired kidney function Plan: Hyperlipidemia On Statin DVT prophylaxis Heparin subcu Full code Patient daughter requesting updates from providers. Ms. Tabatha Mathias, contact #[phone]. We will ask for PT and OT evaluation Admission and Anticipated Discharge Date Admission Date: August 19, 2021 Subjective 08/20/2021 The patient was seen and examined in telemetry unit and in the Covid room She has not been feeling any better since admission though she is off BiPAP now Has been complaining of cough with shortness of breath Denies any fever and/or chills and no chest pain or palpitation 08/21/2021 The patient was seen and examined in telemetry unit and in the Covid room She has been feeling much better today Complains today of cough and shortness of breath 08/22/2021 The patient was seen and examined in telemetry unit and in the Covid room She has been feeling much better and is requiring up to 8 L of oxygen to maintain saturation The cough has been decreased 08/23/2021 The patient was seen and examined in telemetry unit and in the Covid room She has been feeling much better today still requiring about 7 L of oxygen to maintain saturation Her cough is much better She will not be receiving any Lasix as the creatinine noted to be little bit higher 08/24/2021 The patient was seen and examined in telemetry unit and in the Covid room Her condition has deteriorated since yesterday and has been requiring up to 15 L of oxygen to maintain saturation Denies any significant cough but remains tired and lethargic 08/25/2021 The patient was seen and examined in telemetry unit and in the Covid room She is a little worse today and has been requiring up to 13 L of oxygen to maintain saturation Remains very weak and lethargic 08/26/2021 The patient was seen and examined in telemetry unit and in the Covid room She has been feeling a little better today and is out of bed when a chair Cough is improved but weakness is worse She has been requiring about 9 L of oxygen to maintain saturation Review of Systems Review of Systems: All systems reviewed and are unremarkable except as noted below Respiratory: Moderate shortness of breath at rest Physical Exam Physical Exam: Sitting on a chair without any acute distress Constitutional: well developed, well nourished, + ill appearing and + obese Eyes: PERRL, conjunctivae normal, anicteric sclerae ENMT: external ear and nose normal, oropharynx normal Neck: trachea midline, no thyromegaly Respiratory: + respiratory distress, + labored breathing and + cough Auscultation: + diminished lung sounds and + crackles (Minimal crackles at the bases) Cardiovascular: Rate/Rhythm: regular rate and regular rhythm; not tachycardic Heart Sounds: normal S1 and normal S2; no murmur Palpation: normal PMI Extremities: + edema (1+ edema bilaterally) Gastrointestinal (Abdomen): Inspection/Auscultation: + abdomen distended and normal bowel sounds Percussion/Palpation: abdomen soft; abdomen nontender Musculoskeletal: No acute arthritis in any joint Neurologic: Alert, awake and oriented x3. Generally weak Psychiatric: A+Ox3, euthymic affect Lymphatic: no cervical or axillary lymphadenopathy Results & Data Results & Data ([facility]) Vital Signs (Past 12 Hours) Vital Signs Temp Pulse Resp BP Pulse Ox 08/26/21 13:17 89 L 08/26/21 11:31 36.8 C 86 21 131/73 93 08/26/21 07:22 36.6 C 79 21 116/64 93 08/26/21 06:21 83 96 08/26/21 03:51 36.5 C 84 20 134/[address] [facility] 08/26/21 09:44 Sodium 136 Potassium 3.8 Chloride 101 Carbon Dioxide 27 BUN 45 H Creatinine 1.33 H Glucose 178 H Calcium 9.6 Medications Administered Current Inpatient Medications Acetaminophen (Acetaminophen 325 Mg Tab) 650 mg PO Q4H PRN PRN Reason: Pain or Fever Stop: 09/19/21 00:03 Last Admin: 08/26/21 02:45 Dose: 650 mg Documented by: Amlodipine Besylate (Amlodipine Besylate 5 Mg Tab) [facility] [place] Stop: 09/19/21 14:29 Last Admin: 08/26/21 08:49 Dose: 5 mg Documented by: Aspirin (Aspirin 81 Mg Ectab) 81 mg PO DAILY STEPHANIE Stop: 09/19/21 08:59 Last Admin: 08/26/21 08:49 Dose: 81 mg Documented by: Atorvastatin Calcium (Atorvastatin 40 Mg Tab) 40 mg PO HS [facility] Stop: 09/19/21 20:59 Last Admin: 08/25/21 21:17 Dose: 40 mg Documented by: Baricitinib (Baricitinib 2 Mg Tab) 2 mg PO DAILY STEPHANIE; Protocol Stop: 09/02/21 09:01 Lidocaine HCl 60 ml/Diphenhydramine HCl 150 mg/ Al Hydrox/Mg Hydrox/Simethicone 60 ml/ Glycerin 60 ml/ BARCODE IDENTIFIER 1 ea 0 ml PO Q4H PRN PRN Reason: Sore Throat Stop: 09/21/21 08:12 Last Admin: 08/26/21 08:56 Dose: 5 ml Documented by: Cyanocobalamin (Cyanocobalamin 500 Mcg Tablet (Vitamin B-12)) 1,000 mcg PO QAM STEPHANIE Stop: 09/19/21 08:59 Last Admin: 08/26/21 08:48 Dose: 1,000 mcg Documented by: Dextrose (Dextrose 50% 50 Ml Syringe) 25 - 50 ml IV UD PRN; Protocol PRN Reason: Hypoglycemia Protocol Stop: 09/19/21 05:29 Duloxetine HCl (Duloxetine Hcl 60 Mg Cap) 60 mg PO HS [facility] Stop: 09/19/21 20:59 Last Admin: 08/25/21 21:17 Dose: 60 mg Documented by: Fenofibrate (Fenofibrate Nanocrystallized 145 Mg Tablet) 145 mg PO QAM [facility] Stop: 09/19/21 08:59 Last Admin: 08/26/21 08:49 Dose: 145 mg Documented by: Gabapentin (Gabapentin 300 Mg Cap) 300 mg PO QID [facility] Stop: 09/19/21 08:59 Last Admin: 08/26/21 12:44 Dose: 300 mg Documented by: Glucagon (Glucagon For Inj 1 Mg Vial) 1 mg IM UD PRN; Protocol PRN Reason: Hypoglycemia Protocol Stop: 09/19/21 05:29 Glucose (Glucose 40% Gel 15 Gm Tube) 15 - 30 gm PO UD PRN; Protocol PRN Reason: Hypoglycemia Protocol Stop: 09/19/21 05:29 Glucose (Glucose 10 Tabs/Tube) 4 - 8 tabs PO UD PRN; Protocol PRN Reason: Hypoglycemia Protocol Stop: 09/19/21 05:29 Guaifenesin (Guaifenesin 600 Mg Tabcr) 1,200 mg PO Q12 STEPHANIE Stop: 09/20/21 20:59 Last Admin: 08/26/21 08:48 Dose: 1,200 mg Documented by: Heparin Sodium (Porcine) (Heparin Sod 5,000 Unit/0.5 Ml Vial) 5,000 units SQ Q8 [facility] Stop: 09/19/21 05:59 Last Admin: 08/26/21 13:58 Dose: 5,000 units Documented by: Hydrocodone Bit/Homatropine Methylb (Hydrocodone/Homatropine Syrup 5mg/1.5mg 5ml Udp) 5 ml PO Q6H PRN PRN Reason: Cough Stop: 09/04/21 10:50 Last Admin: 08/26/21 12:50 Dose: 5 ml Documented by: Promethazine HCl 12.5 mg/ (Sodium Chloride) 50.5 mls @ 202 mls/hr IV Q6H PRN PRN Reason: Nausea And Vomiting Stop: 09/19/21 00:03 Dexamethasone 6 mg/ Syringe 1.5 mls @ 1 mls/min IV DAILY [facility] Stop: 09/19/21 06:29 Last Admin: 08/26/21 08:49 Dose: 1 mls/min Documented by: Insulin Aspart (Insulin Aspart 100 Units/Ml 3 Ml Pen) 0 units SC ACHS [facility]; Protocol Stop: 09/19/21 07:29 Last Admin: 08/26/21 12:55 Dose: 16 units Documented by: Insulin Glargine (Insulin Glargine Solostar 100 Units/Ml 3 Ml Pen) 35 units SC DAILY [facility]; Protocol Stop: 09/23/21 08:59 Last Admin: 08/26/21 09:23 Dose: 35 units Documented by: Ipratropium [place] (Ipratropium [place] Neb Soln 0.02% 2.5 Ml Vial) 0.5 mg INH Q4H PRN PRN Reason: SOB, WHEEZE Stop: 09/19/21 00:03 Levalbuterol HCl (Levalbuterol 1.25mg/0.5ml Neb) 1.25 mg INH Q4H PRN PRN Reason: SOB, WHEEZE Stop: 09/19/21 00:03 Levothyroxine Sodium (Levothyroxine Sodium 150 Mcg Tablet) 150 mcg PO DAILYBB [facility] Stop: 09/19/21 06:29 Last Admin: 08/26/21 06:20 Dose: 150 mcg Documented by: Menthol (Cough Drop (Sugar Free) Emelyn 24 Emelyn/1 Box) 1 emelyn BUCCAL PRN PRN PRN Reason: Cough Stop: 09/19/21 17:41 Miscellaneous (Carbohydrates For Hypoglycemia ) 15 - 30 gm PO UD PRN PRN Reason: Hypoglycemia Treatment Stop: 09/19/21 05:29 Last Admin: 08/24/21 04:32 Dose: 15 gm Documented by: Miscellaneous Information (Pharmacy Glycemic Mgmt Consult) 1 ea N/A UD PRN PRN Reason: Consult Stop: 09/20/21 10:52 Pantoprazole Sodium (Pantoprazole 40 Mg Tab) [facility] [place] Stop: 09/19/21 08:59 Last Admin: 08/26/21 08:49 Dose: 40 mg Documented by: Tramadol HCl (Tramadol Hcl 50 Mg Tablet) 25 - 50 mg PO Q4H PRN PRN Reason: Pain Stop: 09/19/21 00:03 Last Admin: 08/25/21 05:34 Dose: 50 mg Documented by:
[2021-08-26] MEDS: traMADol HCL 50 MG TABLET PO PRN (19:47)
[2021-08-26] MEDS: DULoxetine HCL 60 MG CAP PO SCH (20:08)
[2021-08-26] MEDS: ATORVASTATIN 40 MG TAB PO SCH (20:08)
[2021-08-27] MEDS: traMADol HCL 50 MG TABLET PO PRN (02:55)
[2021-08-27] MEDS: HEPARIN SOD 5,000 UNIT/0.5 ML VIAL SQ SCH ×3 (05:35→21:10)
[2021-08-27] MEDS: LEVOTHYROXINE SODIUM 150 MCG TABLET PO SCH (05:35)
[2021-08-27 08:14] LABS: Creatinine Clr Calc Pharmacy 99.5 ml/min; Est GFR (African American) 77.2 ml/min; Est GFR (Non-African American) 66.6 ml/min
[2021-08-27] MEDS ORDERED: BARICITINIB 2 MG TAB PO SCH (09:00)
[2021-08-27] MEDS: LIDOCAINE VISCOUS 2% SOLN 60 ML, diphenhydrAMINE Syrup 150 MG, ALUMINUM/MAGNESIUM SUSP ... PO PRN ×3 (09:10→19:32)
[2021-08-27] MEDS: CYANOCOBALAMIN 500 MCG TABLET (VITAMIN B-12) PO SCH (09:10)
[2021-08-27] MEDS: amLODIPine BESYLATE 5 MG TAB PO SCH (09:10)
[2021-08-27] MEDS: GABAPENTIN 300 MG CAP PO SCH ×4 (09:11→20:44)
[2021-08-27] MEDS: ASPIRIN 81 MG ECTAB PO SCH (09:11)
[2021-08-27] MEDS: FENOFIBRATE NANOCRYSTALLIZED 145 MG TABLET PO SCH (09:11)
[2021-08-27] MEDS: PANTOprazole 40 MG TAB PO SCH (09:11)
[2021-08-27] MEDS: guaiFENesin 600 MG TABCR PO SCH ×2 (09:12→20:44)
[2021-08-27] MEDS: dexAMETHasone 6 MG in SYRINGE 0 ML IV SCH (09:13)
[2021-08-27] MEDS: HYDROcodone/HOMATROPINE SYRUP 5MG/1.5MG 5ML UDP PO PRN ×3 (09:16→21:09)
[2021-08-27] MEDS: INSULIN GLARGINE SOLOSTAR 100 UNITS/ML 3 ML PEN SC SCH (09:25)
[2021-08-27] MEDS: INSULIN ASPART 100 UNITS/ML 3 ML PEN SC SCH ×4 (09:26→20:25)
--- NOTE | 2021-08-27 19:32 | Hospitalist Progress Note ---
Date of Service August 27, 2021 Assessment & Plan (1) Acute hypoxemic respiratory failure: (2) Pneumonia due to 2019-nCoV: Plan: #. Acute hypoxemic respiratory failure: Secondary to severe COVID-19 pneumonia Management as below #. Pneumonia due to 2019-nCoV: Vaccinated, required BiPAP on admission. Continue with dexamethasone 08/20 and baricitinib 08/28 [renally adjusted dose of baricitinib] Pulmonology evaluated the patient while inpatient. Did not fulfill the criteria for Tocilizumab but has been started on Baricitinib by the vice president of advertising Has been requiring high flow oxygen to maintain saturation We will keep her on the drier operator helper side and will use Lasix as needed Cough suppressant and oxygen as needed with occasional proning if possible Clinically feeling better and will continue current medications Continue PT/OT. #. Elevated troponin: Troponin was elevated up to 0.19 Likely secondary to Covid infection and doubt any ACS Trending down Denies any cardiac symptoms #. DM (diabetes mellitus): Recent outpatient hemoglobin A1c 6.16 January 2021 Basal insulin adjusted for n.p.o. status, ISS BG goal 1 10-1 40, update hemoglobin A1c-7.5 Placement pharmacy consulted for diabetes management Blood sugar seems to be stable #. HTN (hypertension): Hypertension, elevated secondary to anxiety/discomfort Pressure under control, held ARB when creatinine was elevated and started on amlodipine. Continue with amlodipine. At discharge switch back to home ARB. #. Acute kidney injury ARF on CKD secondary to illness Monitor creatinine/lactic acid response to IVF ARB held. Amlodipine started. Creatinine back to normal, baricitinib dose adjusted, use Lasix cautiously. #. Hyperlipidemia On Statin #. DVT prophylaxis Heparin subcu Full code Patient daughter requesting updates from providers. Ms. Tabatha Mathias, contact #[phone]. PT/OT eval Admission and Anticipated Discharge Date Admission Date: August 19, 2021 Subjective Patient was sitting up in chair, on 9 L nasal cannula oxygen, NAD, no acute events overnight. Patient is eating and moving bowels okay. Patient denies fever/headache/chest pain/increased shortness of breath/other review of symptoms. Physical Exam Physical Exam: GENERAL: Alert and oriented x3. NAD, on 9L HEENT: No pallor, no icterus. Pupils equal, round and reactive to light. Oral mucosa moist. NECK: No JVD, no neck masses. HEART: S1 and S2 heard. Regular rate and rhythm. No murmur, no gallop. RESPIRATORY SYSTEM: Normal AP diameter. No accessory muscle use. No wheezing, no crackles. Decreased breath sounds. ABDOMEN: Soft, bowel sounds present, nontender, no distention. CENTRAL NERVOUS SYSTEM: No facial droop. Speech is clear. Obeys simple commands. Moves extremities. EXTREMITIES: No edema, no erythema seen. Results & Data Results & Data ([facility]) Vital Signs (Past 12 Hours) Vital Signs Temp Pulse Pulse Pulse Resp BP BP 08/27/21 19:00 36.7 C 86 20 138/73 08/27/21 16:17 36.7 C 84 12 144/85 H 08/27/21 16:00 85 08/27/21 12:28 36.7 C 80 20 125/80 08/27/21 08:00 73 08/27/21 07:50 36.3 C L 76 18 143/78 H Pulse Ox 08/27/21 19:00 93 08/27/21 16:17 96 08/27/21 16:00 08/27/21 12:28 92 08/27/21 08:00 08/27/21 07:50 94
[2021-08-27] MEDS: ATORVASTATIN 40 MG TAB PO SCH (20:43)
[2021-08-27] MEDS: DULoxetine HCL 60 MG CAP PO SCH (20:43)
[2021-08-27] MEDS: ACETAMINOPHEN 325 MG TAB PO PRN (21:09)
[2021-08-28] MEDS ORDERED: MELATONIN 3 MG TAB PO PRN (00:54)
[2021-08-28] MEDS: LEVOTHYROXINE SODIUM 150 MCG TABLET PO SCH (05:42)
[2021-08-28] MEDS: HEPARIN SOD 5,000 UNIT/0.5 ML VIAL SQ SCH ×3 (05:43→22:32)
[2021-08-28 07:55] LABS: Calcium 8.8 mg/dl (8.5-10.1); Creatinine Clr Calc Pharmacy 89.6 ml/min; Est GFR (Non-African American) 58.7 ml/min; Magnesium 1.9 mg/dl (1.8-2.4); Phosphorus 2.7 mg/dl (2.5-4.9)
[2021-08-28] MEDS: LIDOCAINE VISCOUS 2% SOLN 60 ML, diphenhydrAMINE Syrup 150 MG, ALUMINUM/MAGNESIUM SUSP ... PO PRN ×4 (08:00→20:59)
[2021-08-28] MEDS: 4 mg Once Daily x14 days PO SCH (09:25)
[2021-08-28] MEDS: ASPIRIN 81 MG ECTAB PO SCH (09:26)
[2021-08-28] MEDS: CYANOCOBALAMIN 500 MCG TABLET (VITAMIN B-12) PO SCH (09:26)
[2021-08-28] MEDS: GABAPENTIN 300 MG CAP PO SCH ×4 (09:26→20:59)
[2021-08-28] MEDS: dexAMETHasone 6 MG in SYRINGE 0 ML IV SCH (09:27)
[2021-08-28] MEDS: amLODIPine BESYLATE 5 MG TAB PO SCH (09:27)
[2021-08-28] MEDS: guaiFENesin 600 MG TABCR PO SCH ×2 (09:27→21:00)
[2021-08-28] MEDS: FENOFIBRATE NANOCRYSTALLIZED 145 MG TABLET PO SCH (09:27)
[2021-08-28] MEDS: PANTOprazole 40 MG TAB PO SCH (09:28)
[2021-08-28] MEDS: HYDROcodone/HOMATROPINE SYRUP 5MG/1.5MG 5ML UDP PO PRN ×2 (09:28→18:10)
[2021-08-28] MEDS: INSULIN ASPART 100 UNITS/ML 3 ML PEN SC SCH ×5 (09:29→21:05)
[2021-08-28] MEDS: INSULIN GLARGINE SOLOSTAR 100 UNITS/ML 3 ML PEN SC SCH (09:30)
[2021-08-28] MEDS: MAGNESIUM OXIDE 400 MG TAB PO SCH ×2 (11:56→22:32)
[2021-08-28] MEDS ORDERED: FUROSEMIDE 40 MG/4 ML VIAL IV ONE (12:21)
--- NOTE | 2021-08-28 15:15 | Hospitalist Progress Note ---
Date of Service August 28, 2021 Assessment & Plan (1) Acute hypoxemic respiratory failure: (2) Pneumonia due to 2019-nCoV: Plan: #. Acute hypoxemic respiratory failure: Secondary to severe COVID-19 pneumonia Management as below #. Pneumonia due to 2019-nCoV: Vaccinated, required BiPAP on admission. Continue with dexamethasone 08/20 and baricitinib 08/28 [renally adjusted dose of baricitinib] Pulmonology evaluated the patient while inpatient. Did not fulfill the criteria for Tocilizumab but has been started on Baricitinib by the cigarette stamper Has been requiring high flow oxygen to maintain saturation We will keep her on the drier and evaporator operator side and will use Lasix as needed - 40 mg iv today Cough suppressant and oxygen as needed with occasional proning if possible Continue current medications. Patient needing increasing requirement of oxygen. Continue PT/OT. #. Elevated troponin: Troponin was elevated up to 0.19 Likely secondary to Covid infection and doubt any ACS Trending down Denies any cardiac symptoms #. DM (diabetes mellitus): Recent outpatient hemoglobin A1c 6.16 January 2021 Basal insulin adjusted for n.p.o. status, ISS BG goal 1 10-1 40, update hemoglobin A1c-7.5 Placement pharmacy consulted for diabetes management Blood sugar seems to be stable #. HTN (hypertension): Hypertension, elevated secondary to anxiety/discomfort Pressure under control, held ARB when creatinine was elevated and started on amlodipine. Continue with amlodipine. At discharge switch back to home ARB. #. Acute kidney injury ARF on CKD secondary to illness Monitor creatinine response to IVF ARB held. Amlodipine started. Creatinine back to normal, baricitinib dose adjusted, use Lasix cautiously. #. Hyperlipidemia On Statin #. DVT prophylaxis Heparin subcu Full code Patient daughter Ms. Tabatha Mathias, contact #[phone]. PT/OT while inpatient. Admission and Anticipated Discharge Date Admission Date: August 19, 2021 Subjective Patient was sitting up in chair, on 30 L nasal cannula and face mask oxygen, NAD, no acute events overnight. Patient is eating and moving bowels okay. In the morning, when patient was moved to commode, she desaturated and required 30 L oxygen from her prior 9 L level. Patient encouraged as always to do flutter valve and incentive spirometry every hour while awake. Patient denies fever/headache/chest pain/increased shortness of breath/other review of symptoms. Physical Exam Physical Exam: GENERAL: Alert and oriented x3. NAD, on 30L HEENT: No pallor, no icterus. Pupils equal, round and reactive to light. Oral mucosa moist. NECK: No JVD, no neck masses. HEART: S1 and S2 heard. Regular rate and rhythm. No murmur, no gallop. RESPIRATORY SYSTEM: Normal AP diameter. No accessory muscle use. No wheezing, no crackles. Decreased breath sounds. ABDOMEN: Soft, bowel sounds present, nontender, no distention. CENTRAL NERVOUS SYSTEM: No facial droop. Speech is clear. Obeys simple commands. Moves extremities. EXTREMITIES: No edema, no erythema seen. Results & Data Results & Data ([facility]) Vital Signs (Past 12 Hours) Vital Signs Temp Pulse Pulse Pulse Resp BP BP 08/28/21 15:00 71 08/28/21 12:04 36.6 C 99 H 24 137/86 08/28/21 10:30 93 H 24 08/28/21 07:36 36.6 C 74 18 155/84 H 08/28/21 03:31 60 Pulse Ox 08/28/21 15:00 08/28/21 12:04 91 08/28/21 10:30 90 08/28/21 07:36 93 08/28/21 03:31
[2021-08-28] MEDS: ACETAMINOPHEN 325 MG TAB PO PRN (20:59)
[2021-08-28] MEDS: DULoxetine HCL 60 MG CAP PO SCH (21:00)
[2021-08-28] MEDS: ATORVASTATIN 40 MG TAB PO SCH (22:32)
[2021-08-29] MEDS: ACETAMINOPHEN 325 MG TAB PO PRN (05:47)
[2021-08-29] MEDS: LEVOTHYROXINE SODIUM 150 MCG TABLET PO SCH (05:47)
[2021-08-29] MEDS: HYDROcodone/HOMATROPINE SYRUP 5MG/1.5MG 5ML UDP PO PRN ×2 (05:47→14:15)
[2021-08-29] MEDS: HEPARIN SOD 5,000 UNIT/0.5 ML VIAL SQ SCH ×3 (05:47→21:25)
[2021-08-29] MEDS: PANTOprazole 40 MG TAB PO SCH (08:49)
[2021-08-29] MEDS: ASPIRIN 81 MG ECTAB PO SCH (08:49)
[2021-08-29] MEDS: amLODIPine BESYLATE 5 MG TAB PO SCH (08:49)
[2021-08-29] MEDS: INSULIN ASPART 100 UNITS/ML 3 ML PEN SC SCH ×4 (08:50→21:27)
[2021-08-29] MEDS: guaiFENesin 600 MG TABCR PO SCH ×2 (08:50→20:39)
[2021-08-29] MEDS: MAGNESIUM OXIDE 400 MG TAB PO SCH ×2 (08:50→20:39)
[2021-08-29] MEDS: GABAPENTIN 300 MG CAP PO SCH ×4 (08:50→20:39)
[2021-08-29] MEDS: FENOFIBRATE NANOCRYSTALLIZED 145 MG TABLET PO SCH (08:51)
[2021-08-29] MEDS: CYANOCOBALAMIN 500 MCG TABLET (VITAMIN B-12) PO SCH (08:51)
[2021-08-29] MEDS: LIDOCAINE VISCOUS 2% SOLN 60 ML, diphenhydrAMINE Syrup 150 MG, ALUMINUM/MAGNESIUM SUSP ... PO PRN ×2 (08:52→12:52)
[2021-08-29] MEDS: traMADol HCL 50 MG TABLET PO PRN ×2 (09:01→18:10)
[2021-08-29] MEDS: 4 mg Once Daily x14 days PO SCH (09:01)
[2021-08-29 09:56] LABS: Albumin Level 2.5 gm/dl (3.4-5.0); BUN Creatinine Ratio 32.5 (10-20); Calcium 9.6 mg/dl (8.5-10.1); Creatinine Clr Calc Pharmacy 90.3 ml/min; Est GFR (African American) 70.3 ml/min; Est GFR (Non-African American) 60.7 ml/min; Potassium 3.6 mmol/L (3.5-5.1)
[2021-08-29 09:58] LABS: Albumin Globulin Ratio 0.5 (0.9-2); Bilirubin,Total 0.7 mg/dl (0.2-1); Globulin 5.1 gm/dl (2.5-4.0); Total Protein 7.6 gm/dl (6.4-8.2)
[2021-08-29] MEDS ORDERED: INSULIN GLARGINE SOLOSTAR 100 UNITS/ML 3 ML PEN SC SCH (12:30)
[2021-08-29] MEDS: INSULIN GLARGINE SOLOSTAR 100 UNITS/ML 3 ML PEN SC SCH (13:00)
--- NOTE | 2021-08-29 14:53 | Pharmacy Report ---
Pharmacy Glycemic Short Note 2 - Date of Service August 29, 2021 - Glycemic Short BSG Results (Last 24 hours): 08/28/21 08/28/21 08/29/21 16:53 20:18 07:12 Glucose 127 H POC Glucose 241 H 194 H 08/29/21 08/29/21 07:20 11:25 Glucose POC Glucose 137 H 267 H OUTPATIENT ANTIDIABETIC REGIMEN: * Toujeo 125 units SQ BID * Novolog SSI * Ozempic 0.5mg qWed * Metformin 1gm PO BID * HbA1c: 7.5% (08/21/21) ASSESSMENT: 08/29/21: * Patient received total of 54 units of insulin yesterday, of which 35 units were basal to cover steroids * Fasting BSG 137 mg/dL - steroids now stopped * Will cut Lantus in 10/12 as likely still will see residual effect from steroid * Plan to continue same CF/CR for today, possibly loosen more tomorrow AM 08/26/21: * Fasting BSG has been reasonable on current dose of Lantus. * Novolog parameters tightened very slightly today to provide additional carb coverage, as pt's BSGs have been trending up throughout the day. * Will continue to follow and adjust as needed. 08/24 * Pt with critical high BSG prior to dinner yesterday; unsure of reasoning as patient did receive 15 units of NovoLog to cover pre-lunch BSG of 162 mg/dl and 70g CHO consumed. Pt ordered a one time IV bolus by pharmacy and covered per CF/CR with 22 units of Novolog. BSG dropped nicely into range at 161mg/dl. Will tighten CR for today to prevent post-prandial spike. Also loosen CF since previous CF+CR when BSG elevated did result in goal range BSGs when given together per previous parameters. May cause too much a a drop with tightened CR * RN called pharmacy last evening - unfortunately RN gave 8 units at HS because they used the pre-dinner BSG of 333 mg/dl (actual BSG was 161). Pt with repeated low BSGs overnight from too much novolog given. * AM fasting BSG still slightly low at 68 mg/dl this AM. Likely NovoLog from HS has worn off and this may be a reflection of lantus dosing. Will lower lantus slightly. 08/23 * Pt has received 47 units of insulin over the past 24hrs * 40 units of basal with Lantus * 7 units of bolus with NovoLog * BSGs trending LOW yesterday - most likely from the 100 units of Lantus that were given the day prior to transition off of insulin infusion * No LOW BSGs this morning and BSGs trending upwards to goal range. Will continue with Lantus 40 units daily (as this is a 60% reduction from 08/21) and titrate based on BSG trends. Of note, patient does take Toujeo 125 units SQ BID as an outpatient. 08/22 * Despite dosing basal insulin at less than half of patient's home dose yesterday, patient was hypoglycemic this morning. * Will hold PM Lantus dose this evening and re-assess in am. * Novolog parameters loosened this afternoon. * Patient is requiring drastically less insulin than she uses at home, which is very surprising, especially given that pt is receiving IV dexamethasone!! * Will continue to follow closely and adjust regimen as needed. 08/21 * Ms Styles is a 50yo diabetic female admitted 08/19 with COVID pna. * Patient was initiated on an IV insulin infusion for severe hyperglycemia. * This morning, BSGs were reasonable and insulin gtt rate was low, so transition was initiated to SQ insulin. * Pt is receiving daily IV dexamethasone, which is expected to contribute to significant steroid-induced hyperglycemia. * Pt is receiving daily remdesivir currently. * Pharmacy glycemic mgmt service followed patient in 2019, and her home regimen was similar at that time. Will utilize data from that admission to help guide insulin dosing this admission. PLAN FOR INPATIENT GLYCEMIC CONTROL: * Hold outpatient oral diabetes medications * Basal insulin: * Lantus 15 units daily * Bolus insulin: * NovoLog per scale ACHS or Q6hrs while NPO * Goal Range: Low 110 mg/dL - High 150 mg/dL * Correction Factor: 20 mg/dL/unit * Nutritional / Prandial insulin per carb ratio of 1 unit per 5 grams CHO consumed PLAN FOR DISCHARGE: * A1c is in goal range - no changes needed at dc.
[2021-08-29] MEDS ORDERED: FUROSEMIDE INJ 20 MG/2 ML VIAL IV ONE (16:15)
--- NOTE | 2021-08-29 16:15 | Hospitalist Progress Note ---
Date of Service August 29, 2021 Assessment & Plan (1) Acute hypoxemic respiratory failure: (2) Pneumonia due to 2019-nCoV: Plan: #. Acute hypoxemic respiratory failure: Secondary to severe COVID-19 pneumonia Management as below #. Pneumonia due to 2019-nCoV: Vaccinated, required BiPAP on admission. Continue with dexamethasone 08/20 and baricitinib 08/28 [renally adjusted dose of baricitinib] Pulmonology evaluated the patient while inpatient. Did not fulfill the criteria for Tocilizumab but has been started on Baricitinib by the breaker machine tender Has been requiring high flow oxygen to maintain saturation We will keep her on the stretcher drier operator side and will use Lasix as needed - 40 mg iv today Cough suppressant and oxygen as needed with occasional proning if possible Continue current medications. Patient needing increasing requirement of oxygen. Continue PT/OT. #. Elevated troponin: Troponin was elevated up to 0.19 Likely secondary to Covid infection and doubt any ACS Trending down Denies any cardiac symptoms #. DM (diabetes mellitus): Recent outpatient hemoglobin A1c 6.16 January 2021 Basal insulin adjusted for n.p.o. status, ISS BG goal 1 10-1 40, update hemoglobin A1c-7.5 Glycemic pharmacy consulted for diabetes management Blood sugar seems to be stable #. HTN (hypertension): Hypertension, elevated secondary to anxiety/discomfort Pressure under control, held ARB when creatinine was elevated and started on amlodipine. Continue with amlodipine. At discharge switch back to home ARB. #. Acute kidney injury ARF on CKD secondary to illness Monitor creatinine response to IVF ARB held. Amlodipine started. Creatinine back to normal, baricitinib dose adjusted, use Lasix cautiously. #. Hyperlipidemia On Statin #. DVT prophylaxis Heparin subcu Full code Patient daughter Ms. Tabatha Mathias, contact #[phone]. PT/OT while inpatient. Admission and Anticipated Discharge Date Admission Date: August 19, 2021 Subjective Patient was sitting up in chair, on 40 L High flow oxygen, NAD, no acute events overnight. Patient is eating and moving bowels okay. Patient reports feeling better and wonderful today. Patient encouraged as always to do flutter valve and incentive spirometry every hour while awake. Patient denies fever/headache/chest pain/increased shortness of breath/other review of symptoms. Physical Exam Physical Exam: GENERAL: Alert and oriented x3. NAD, on 40 L at 100%. HEENT: No pallor, no icterus. Pupils equal, round and reactive to light. Oral mucosa moist. NECK: No JVD, no neck masses. HEART: S1 and S2 heard. Regular rate and rhythm. No murmur, no gallop. RESPIRATORY SYSTEM: Normal AP diameter. No accessory muscle use. No wheezing, no crackles. Decreased breath sounds. ABDOMEN: Soft, bowel sounds present, nontender, no distention. CENTRAL NERVOUS SYSTEM: No facial droop. Speech is clear. Obeys simple commands. Moves extremities. EXTREMITIES: No edema, no erythema seen. Results & Data Results & Data ([facility]) Vital Signs (Past 12 Hours) Vital Signs Temp Pulse Pulse Resp BP BP Pulse Ox 08/29/21 15:02 89 20 92 08/29/21 11:27 36.6 C 93 H 24 123/81 91 08/29/21 10:23 92 H 21 90 08/29/21 08:00 83 08/29/21 07:27 36.9 C 83 24 120/76 88 L 08/29/21 06:12 90 24 92
[2021-08-29] MEDS: DULoxetine HCL 60 MG CAP PO SCH (20:39)
[2021-08-29] MEDS: ATORVASTATIN 40 MG TAB PO SCH (20:39)
[2021-08-30] MEDS: traMADol HCL 50 MG TABLET PO PRN (00:04)
[2021-08-30] MEDS: HYDROcodone/HOMATROPINE SYRUP 5MG/1.5MG 5ML UDP PO PRN ×3 (00:04→23:20)
[2021-08-30] MEDS: HEPARIN SOD 5,000 UNIT/0.5 ML VIAL SQ SCH ×3 (05:37→21:24)
[2021-08-30] MEDS: LEVOTHYROXINE SODIUM 150 MCG TABLET PO SCH (05:37)
[2021-08-30] MEDS: CYANOCOBALAMIN 500 MCG TABLET (VITAMIN B-12) PO SCH (08:00)
[2021-08-30] MEDS: 4 mg Once Daily x14 days PO SCH (08:00)
[2021-08-30] MEDS: amLODIPine BESYLATE 5 MG TAB PO SCH (08:00)
[2021-08-30] MEDS: ASPIRIN 81 MG ECTAB PO SCH (08:01)
[2021-08-30] MEDS: guaiFENesin 600 MG TABCR PO SCH ×2 (08:01→21:24)
[2021-08-30] MEDS: GABAPENTIN 300 MG CAP PO SCH ×4 (08:01→21:24)
[2021-08-30] MEDS: PANTOprazole 40 MG TAB PO SCH (08:01)
[2021-08-30] MEDS: FENOFIBRATE NANOCRYSTALLIZED 145 MG TABLET PO SCH (08:02)
[2021-08-30] MEDS: ACETAMINOPHEN 325 MG TAB PO PRN ×2 (08:34→21:31)
[2021-08-30] MEDS: LIDOCAINE VISCOUS 2% SOLN 60 ML, diphenhydrAMINE Syrup 150 MG, ALUMINUM/MAGNESIUM SUSP ... PO PRN ×3 (08:35→23:20)
[2021-08-30] MEDS: INSULIN GLARGINE SOLOSTAR 100 UNITS/ML 3 ML PEN SC SCH (08:38)
[2021-08-30 09:43] LABS: BUN Creatinine Ratio 32.4 (10-20); Calcium 9.5 mg/dl (8.5-10.1); Creatinine Clr Calc Pharmacy 86.4 ml/min; Est GFR (African American) 67.3 ml/min; Magnesium 1.9 mg/dl (1.8-2.4); Potassium 3.9 mmol/L (3.5-5.1)
[2021-08-30] MEDS: INSULIN ASPART 100 UNITS/ML 3 ML PEN SC SCH ×4 (09:57→20:41)
[2021-08-30] MEDS ORDERED: FUROSEMIDE INJ 20 MG/2 ML VIAL IV ONE (12:44)
--- NOTE | 2021-08-30 20:18 | Hospitalist Progress Note ---
Date of Service August 30, 2021 Assessment & Plan (1) Acute hypoxemic respiratory failure: (2) Pneumonia due to 2019-nCoV: Plan: #. Acute hypoxemic respiratory failure: Secondary to severe COVID-19 pneumonia Management as below #. Pneumonia due to 2019-nCoV: Vaccinated, required BiPAP on admission. Continue with dexamethasone 08/20 and baricitinib 08/28 [renally adjusted dose of baricitinib] Pulmonology evaluated the patient while inpatient. Did not fulfill the criteria for Tocilizumab but has been started on Baricitinib by the bottom bleacher Has been requiring high flow oxygen to maintain saturation We will keep her on the stretcher drier operator side and will use Lasix as needed - 40 mg iv today Cough suppressant and oxygen as needed with occasional proning if possible Continue current medications. Patient needing high requirement of oxygen. Continue PT/OT. #. Elevated troponin: Troponin was elevated up to 0.19 Likely secondary to Covid infection and doubt any ACS Trending down Denies any cardiac symptoms #. DM (diabetes mellitus): Recent outpatient hemoglobin A1c 6.16 January 2021 Basal insulin adjusted for n.p.o. status, ISS BG goal 1 10-1 40, update hemoglobin A1c-7.5 Glycemic pharmacy consulted for diabetes management Blood sugar seems to be stable #. HTN (hypertension): Hypertension, elevated secondary to anxiety/discomfort Pressure under control, held ARB when creatinine was elevated and started on amlodipine. Continue with amlodipine. At discharge switch back to home ARB. #. Acute kidney injury ARF on CKD secondary to illness Monitor creatinine response to IVF ARB held. Amlodipine started. Creatinine back to normal, baricitinib dose adjusted, use Lasix cautiously. #. Hyperlipidemia On Statin #. DVT prophylaxis Heparin subcu Full code Patient daughter Ms. Tabatha Mathias, contact #[phone]. PT/OT while inpatient. Admission and Anticipated Discharge Date Admission Date: August 19, 2021 Subjective Patient was sitting up in chair, on 30 L High flow oxygen, NAD, no acute events overnight. Patient is eating and moving bowels okay. Patient reports feeling better.. Patient encouraged as always to do flutter valve and incentive spirometry every hour while awake. Patient denies fever/headache/chest pain/increased shortness of breath/other review of symptoms. Physical Exam Physical Exam: GENERAL: Alert and oriented x3. NAD, on 30 L at 100%. HEENT: No pallor, no icterus. Pupils equal, round and reactive to light. Oral mucosa moist. NECK: No JVD, no neck masses. HEART: S1 and S2 heard. Regular rate and rhythm. No murmur, no gallop. RESPIRATORY SYSTEM: Normal AP diameter. No accessory muscle use. No wheezing, no crackles. Decreased breath sounds. ABDOMEN: Soft, bowel sounds present, nontender, no distention. CENTRAL NERVOUS SYSTEM: No facial droop. Speech is clear. Obeys simple commands. Moves extremities. EXTREMITIES: No edema, no erythema seen. Results & Data Results & Data ([facility]) Vital Signs (Past 12 Hours) Vital Signs Temp Pulse Pulse Resp BP BP Pulse Ox 08/30/21 20:02 36.4 C L 08/30/21 19:57 86 20 94 08/30/21 19:44 90 22 132/84 99 08/30/21 18:17 97 08/30/21 15:54 93 H 08/30/21 15:23 88 20 92 08/30/21 14:49 36.3 C L 92 H 22 125/84 92 08/30/21 11:23 87 20 90 08/30/21 11:14 36.7 C 91 H 22 125/84 93 08/30/21 10:39 94 08/30/21 08:30 89
[2021-08-30] MEDS ORDERED: MAGNESIUM OXIDE 400 MG TAB PO SCH (21:00)
[2021-08-30] MEDS: DULoxetine HCL 60 MG CAP PO SCH (21:24)
[2021-08-30] MEDS: ATORVASTATIN 40 MG TAB PO SCH (21:24)
[2021-08-31] MEDS ORDERED: XOPENEX/ATROVENT 1.25mg/0.5MG NEB COMBO NEB STA (02:05)
[2021-08-31] MEDS ORDERED: IPRATROPIUM BROMIDE NEB SOLN 0.02% 2.5 ML VIAL INH STA (02:06)
[2021-08-31] MEDS ORDERED: LEVALBUTEROL 1.25MG/0.5ML NEB INH STA (02:06)
[2021-08-31] MEDS ORDERED: methylPREDNISolone 40 MG in SYRINGE 0 ML IV ONE (02:15)
[2021-08-31] MEDS ORDERED: MAGNESIUM SULFATE / D5W 1 GM/100 ML BAG IV ONE (02:30)
[2021-08-31] MEDS ORDERED: FUROSEMIDE 40 MG/4 ML VIAL IV ONE ×2 (02:35→05:26)
[2021-08-31] MEDS ORDERED: RAPID SEQUENCE INDUCTION BAG ONE (02:45)
--- NOTE | 2021-08-31 02:56 | Communication Note ---
Date of Service: August 31, 2021 2 AM Made aware by RN of px sudden hypoxemia after moving from chair to bed on maximal O2 via HFNC. Patient still in distress, O2 sats high 70s on 100% FiO2 BiPAP as per RN. ICU provider requested by staff to evaluate patient. Subsequent recommendation to intubate patient to facilitate mechanical ventilation. Patient daughter updated of developments over the phone. She requests for periodic updates from providers. Ms. Tabatha Mathias, contact #[phone]. Will relay to AM provider.
[2021-08-31] MEDS ORDERED: PROPOFOL IV EMULSION 10 MG/ML 100 ML VIAL IV ONE (03:11)
[2021-08-31] MEDS ORDERED: INSULIN ASPART 100 UNITS/ML 3 ML PEN SC SCH (04:00)
[2021-08-31] MEDS ORDERED: ACETAMINOPHEN 1,000 MG/100 ML VIAL IV PRN (04:11)
[2021-08-31 04:14] LABS: Hematocrit (blood only) 38.3 % (37-47); Hemoglobin 12.3 g/dL (12.0-16.0); Mean Corpuscular Hemoglobin 30.7 pg (25-34); Mean Corpuscular Hgb Conc 32.1 g/dL (32-36); Mean Corpuscular Volume 95.5 fL (80-100); Mean Platelet Volume 11.9 fL (7.4-10.4); Platelet Count 541 K/uL (130-400); RDW Coefficient of Variation 14.8 % (11.5-14.5); RDW Standard Deviation 51.8 fL (36.4-46.3); Red Blood Count 4.01 M/uL (4.2-5.4)
[2021-08-31] MEDS ORDERED: CISATRACURIUM BESYLATE IV SOLN 2 MG/ML 10 ML VIAL IV STA (04:21)
[2021-08-31] MEDS: propofoL 1,000 MG/100 ML VIAL IV SCH ×2 (04:21→05:23)
[2021-08-31] MEDS ORDERED: PROPOFOL BOLUS FROM BAG IV PRN (04:21)
[2021-08-31] MEDS ORDERED: STAT IV Infusion **Titration per Protocol STA ×2 (04:21)
--- NOTE | 2021-08-31 04:21 | Procedure Note ---
Procedure Note Date of Service August 31, 2021 Note INTERNAL JUGULAR CENTRAL LINE PROCEDURE NOTE: Procedure: Internal Jugular Central Line Placement Attending: Dr. Piedra Provider: KIRILL Rodriguez Indication: Central Drug Administration, Poor Venous Access Anesthesia: None Line placed emergently following rapid intubation for acute hypoxic respiratory failure secondary to COVID-19 pneumonia, requiring paralyzing and proning. A time-out was completed verifying correct patient, procedure, site, positioning, and implants(s) or special equipment if applicable. Patients right neck was cleansed and draped in the typical sterile fashion using Chloraprep. The Internal Jugular Vein and Carotid Artery were identified using ultrasound.The Internal Jugular vein was cannulated under direct ultrasound guidance using an introducer needle on a syringe. Good venous blood return was m aintained prior to removal of syringe from introducer needle. Using Seldinger Technique, a guide wire was advanced through the introducer needle without resistance. The introducer needle was removed and ultrasound images were obtained of the guide wire within the Internal Jugular Vein and saved to the patients medical record. A small incision was made in penetrating fashion at the guide wire insertion site utilizing an 11 blade scalpel. The dilator was advanced to the vessel without resistance. The dilator was exchanged for the triple lumen catheter which was advanced into the vessel without resistance. The guide wire was removed intact from the catheter without issue. Claves were placed on each catheter tip with confirmation of good blood flow from each lumen. Each port was easily flushed with sterile saline. The catheter was placed at 16 cm and sutured in place. BioPatch was applied to the catheter and a sterile Tegaderm dressing was applied over the catheter with careful attention to sterility. Patient tolerated procedure well. No immediate complications were met. Post procedure x-ray was completed, placement was appropriate and no pneumothorax was noted. Procedural Ultrasound Guidance: Procedure Date: 08/31/2021 Indication: Central venous catheter insertion Attending: Dr. Piedra Provider: KIRILL Rodriguez Artery AND Vein visualized: Yes Compressible Vein: Yes Guidewire or Short Catheter seen in vein prior to dilation: Yes Line confirmed in Vein with ultrasound: Yes Coding CPT Codes Tubes, Drains, and Vasc Access - Tubes, Drains, and Vasc Access: [id number] Place catheter in vein superior or inferior vena cava ([id number]) Tubes, Drains, and Vasc Access - Tubes, Drains, and Vasc Access: [id number] Ultraso und Guidance For Vascular ([id number]) [facility] [place] Procedure Codes (Charges) Tubes, Drains, and Vasc Access Procedure 1: Tubes, Drains, and Vasc Access: [id number] Place catheter in vein superior or inferior vena cava Procedure 2: Tubes, Drains, and Vasc Access: [id number] Ultrasound Guidance For Vascular
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
--- NOTE | 2021-08-31 04:21 | Procedure Note ---
Procedure Note Date of Service August 31, 2021 Note ARTERIAL LINE PROCEDURE NOTE: Procedure: Arterial Line Placement Attending: Dr. Piedra Provider: KIRILL Rodriguez Indication: Continuous hemodynamic monitoring, frequent ABGs Anesthesia: None Line placed emergently following rapid intubation for acute hypoxic respiratory failure secondary to COVID-19 pneumonia, requiring paralytics and proning. A time-out was completed verifying correct patient, procedure, site, positioning, and implant(s) or special equipment if applicable. Allens test was performed to ensure adequate perfusion. Patients right wrist was prepped and draped in the usual sterile fashion. Ultrasound guidance was used to aid needle placement. A 20g Arrow arterial line was introduced into the right radial artery. Catheter was threaded, and the needle was removed with appropriate blood return. Good waveform was observed. The patient tolerated the procedure well. Confirmation of placement with ultrasound. Blood Loss: Minimal Complications: None Procedural Ultrasound Guidance: Procedure Date: 08/31/2021 Indication: Arterial line insertion Attending: Dr. Piedra Provider: KIRILL Rodriguez Artery Identified: YES Line confirmed in Artery with ultrasound: Yes Complications: NONE Patient tolerated procedure: WELL Coding CPT Codes Tubes, Drains, and Vasc Access - Tubes, Drains, and Vasc Access: [id number] Place Catheter In Artery ([id number]) Tubes, Drains, and Vasc Access - Tubes, Drains, and Vasc Access: [id number] Ultrasound Guidance For Vascular ([id number]) [facility] [place] Codes (Charges) Tubes, Drains, and Vasc Access Procedure 3: Tubes, Drains, and Vasc Access: [id number] Place Catheter In Artery Procedure 4: Tubes, Drains, and Vasc Access: [id number] Ultrasound Guidance For Vascular
[2021-08-31] MEDS ORDERED: fentaNYL DRIP 1,250 MCG/250 ML BAG IV SCH (04:30)
[2021-08-31] MEDS ORDERED: CISATRACURIUM BESYLATE IV ONE (04:30)
[2021-08-31] MEDS ORDERED: CISATRACURIUM BESYLATE 40 MG in 0.9 % SODIUM CHLORIDE 80 ML IV SCH (04:30)
[2021-08-31 04:31] LABS: Albumin Level 2.6 gm/dl (3.4-5.0); BUN Creatinine Ratio 29.5 (10-20); Calcium 9.2 mg/dl (8.5-10.1); Creatinine Clr Calc Pharmacy 71.2 ml/min; Est GFR (African American) 53.2 ml/min; Est GFR (Non-African American) 45.9 ml/min; Magnesium 2.2 mg/dl (1.8-2.4); Partial Thromboplastin Ratio 0.8; Partial Thromboplastin Time 21.4 Seconds (21.0-31.0); Potassium 4.1 mmol/L (3.5-5.1)
[2021-08-31 04:34] LABS: Albumin Globulin Ratio 0.5 (0.9-2); Bilirubin,Total 0.7 mg/dl (0.2-1); Globulin 5.4 gm/dl (2.5-4.0)
[2021-08-31 04:36] LABS: Basophils # (auto) 0.02 K/uL (0-0.2); Basophils % (auto) 0.1 %; Eosinophils # (auto) 0.12 K/uL (0-0.5); Eosinophils % (auto) 0.8 %; Immature Granulocytes # (auto) 0.12 K/uL (0.00-0.02); Immature Granulocytes % (auto) 0.8 %; Lymphocytes # (auto) 2.21 K/uL (1.2-3.4); Lymphocytes % (auto) 13.8 %; Monocytes # (auto) 0.68 K/uL (0.11-0.59); Monocytes % (auto) 4.3 %; Neutrophils # (auto) 12.85 K/uL (1.4-6.5); Neutrophils % (auto) 80.2 %; RBC Morphology Unremarkable
--- NOTE | 2021-08-31 05:08 | Emergency Department Note ---
ED Visit Note Intubation note Endotracheal Intubation Indication respiratory failure. The patient was on 100% oxygen via BiPAP prior to the procedure. Preintubation O2 saturation was 68% with 100% oxygen through a bag valve ventilation. I used the glide scope to visualize the patient's airway while she was fully awake. This was easily visualized. Suction, airway equipment, RSI drugs, respiratory equipment, and appropriate personnel were prepared prior to the initiation of the procedure. A time out was taken. Induction was performed with 30 mg of IV etomidate and 200 mg of IV succinylcholine. After observing the clinical benefit of the medications, the airway was easily visualized utilizing a glide scope. A 7.5 size ETT tube was placed atraumatically to 23 cm using standard technique. The cuff inflated without signs of malfunction. There were bilateral breath sounds, positive colormetric change, no gastric sounds, and post procedure pulse oximetry was 72% with BVM. We raise the head of the bed due to the patient's body habitus. This increased her O2 saturations to 81%. There were no complications. The patient was switched over to the ventilator with PEEP This increased her oxygen saturations to 87%. A post intubation x-ray will be obtained. .
[2021-08-31] MEDS ORDERED: FUROSEMIDE INJ 20 MG/2 ML VIAL IV ONE (05:19)
[2021-08-31 05:27] LABS: iSTAT Allen Test Pass; iSTAT Art Bld Gas pCO2 Correct 40 mmHg (35-46); iSTAT Art Bld Gas pH Corrected 7.396 (7.35-7.45); iSTAT Arterial Blood Gas HCO3 24 meg/L (19-24); iSTAT Arterial Blood Gas pCO2 40 mmHg (35-46); iSTAT Arterial Blood Gas pO2 57 mmHg (80-95); iSTAT Arterial Blood Gas pO2 C 57; iSTAT Carbon Dioxide 25 mmol/L (24-31); iSTAT FiO2 100 %; iSTAT Hematocrit 39 % (37-47); iSTAT Hemoglobin 13.3 g/dl (12.0-16.0); iSTAT Potassium 3.6 mmol/L (3.3-5.0); iSTAT Site R Radial; iSTAT Sodium 139 mmol/L (135-144)
[2021-08-31 05:28] LABS: iSTAT Art Bld Gas pCO2 Correct 83 mmHg (35-46); iSTAT Art Bld Gas pH Corrected 7.114 (7.35-7.45); iSTAT Arterial Blood Gas HCO3 27 meg/L (19-24); iSTAT Arterial Blood Gas pCO2 83 mmHg (35-46); iSTAT Arterial Blood Gas pH 7.11 (7.35-7.45); iSTAT Arterial Blood Gas pO2 67 mmHg (80-95); iSTAT Arterial Blood Gas pO2 C 67; iSTAT Carbon Dioxide 29 mmol/L (24-31); iSTAT FiO2 100 %; iSTAT Hematocrit 41 % (37-47); iSTAT Hemoglobin 13.9 g/dl (12.0-16.0); iSTAT Potassium 4.4 mmol/L (3.3-5.0); iSTAT Site Art Line; iSTAT Sodium 138 mmol/L (135-144)
[2021-08-31] MEDS ORDERED: ARTIFICIAL TEARS OP OINT 3.5 GM TUBE OP SCH (06:00)
[2021-08-31 06:12] LABS: iSTAT Art Bld Gas pCO2 Correct 84 mmHg (35-46); iSTAT Art Bld Gas pH Corrected 7.079 (7.35-7.45); iSTAT Arterial Blood Gas HCO3 25 meg/L (19-24); iSTAT Arterial Blood Gas pCO2 82 mmHg (35-46); iSTAT Arterial Blood Gas pH 7.09 (7.35-7.45); iSTAT Arterial Blood Gas pO2 58 mmHg (80-95); iSTAT Arterial Blood Gas pO2 C 60; iSTAT Carbon Dioxide 27 mmol/L (24-31); iSTAT FiO2 100 %; iSTAT Hematocrit 39 % (37-47); iSTAT Hemoglobin 13.3 g/dl (12.0-16.0); iSTAT Potassium 4.8 mmol/L (3.3-5.0); iSTAT Site Art Line; iSTAT Sodium 136 mmol/L (135-144)
[2021-08-31] MEDS: LEVOTHYROXINE SODIUM 150 MCG TABLET PO SCH (06:20)
[2021-08-31] MEDS: HEPARIN SOD 5,000 UNIT/0.5 ML VIAL SQ SCH (06:20)
[2021-08-31] MEDS ORDERED: ALBUT/IPRATROP 3MG/0.5MG NEB 3 ML VIAL NEB STA (06:26)
[2021-08-31 06:45] LABS: iSTAT Art Bld Gas pCO2 Correct 83 mmHg (35-46); iSTAT Art Bld Gas pH Corrected 7.058 (7.35-7.45); iSTAT Arterial Blood Gas HCO3 23 meg/L (19-24); iSTAT Arterial Blood Gas pCO2 81 mmHg (35-46); iSTAT Arterial Blood Gas pH 7.07 (7.35-7.45); iSTAT Arterial Blood Gas pO2 71 mmHg (80-95); iSTAT Arterial Blood Gas pO2 C 74; iSTAT Carbon Dioxide 26 mmol/L (24-31); iSTAT FiO2 100 %; iSTAT Hematocrit 39 % (37-47); iSTAT Hemoglobin 13.3 g/dl (12.0-16.0); iSTAT Potassium 4.6 mmol/L (3.3-5.0); iSTAT Site Art Line; iSTAT Sodium 135 mmol/L (135-144)
[2021-08-31] MEDS ORDERED: cefTRIAXone SODIUM 2,000 MG in DEXTROSE 5% 50 ML IV SCH (08:00)
[2021-08-31] MEDS ORDERED: NOREPINEPHRINE/D5W 8 MG/508 ML IV ONE (08:13)
--- NOTE | 2021-08-31 08:30 | XRay Report ---
XR chest 1V portable, XR chest 1V portable CLINICAL HISTORY: sob TECHNIQUE: Single frontal radiograph of the chest was obtained at 0215 hours and 0348 hours. Comparison: Comparison is made to chest one view 08/19/2021 FINDINGS: 0215 hours: No lines and tubes are seen. The cardiomediastinal silhouette is stable. Multifocal airspace opacitie s are seen, some improved from prior exam. No evidence of pneumothorax. Small bilateral pleural effus ions cannot be entirely excluded. 0348 hours: Interval placement of an endotracheal tube terminating 26 mm from the dolly, an enteric tube with the side-port and tip in the stomach, and a right IJ catheter with the tip in the upper SVC . Airspace opacities are similar in appearance to prior exam, possibly mildly improved due to improve d aeration. IMPRESSION: Redemonstration of multifocal airspace opacities compatible with pneumonia with or without superimpos ed atelectasis/aspiration. Satisfactory position of lines and tubes as above. ACT 112: Negative or not required by law. Electronically signed by: Agustín Farias M.D. 08/31/2021 8:28 AM
[2021-08-31] MEDS ORDERED: ALTEPLASE 50mg IV over 2hr **For PE (high bleed/submassive) IV STA (08:31)
[2021-08-31 08:33] LABS: Basophils # (auto) 0.01 K/uL (0-0.2); Basophils % (auto) 0.1 %; Eosinophils # (auto) 0.02 K/uL (0-0.5); Eosinophils % (auto) 0.1 %; Hematocrit (blood only) 39.4 % (37-47); Hemoglobin 12.3 g/dL (12.0-16.0); Immature Granulocytes # (auto) 0.26 K/uL (0.00-0.02); Immature Granulocytes % (auto) 1.4 %; Lymphocytes # (auto) 1.67 K/uL (1.2-3.4); Lymphocytes % (auto) 9.1 %; Mean Corpuscular Hemoglobin 30.7 pg (25-34); Mean Corpuscular Hgb Conc 31.2 g/dL (32-36); Mean Corpuscular Volume 98.3 fL (80-100); Monocytes # (auto) 1.38 K/uL (0.11-0.59); Monocytes % (auto) 7.5 %; Neutrophils # (auto) 15.09 K/uL (1.4-6.5); Neutrophils % (auto) 81.8 %; Platelet Count 596 K/uL (130-400); RDW Standard Deviation 53.9 fL (36.4-46.3); Red Blood Count 4.01 M/uL (4.2-5.4); White Blood Count 18.43 K/uL (4.8-10.8)
--- NOTE | 2021-08-31 08:43 | Ultrasound Report ---
BILATERAL LOWER EXTREMITY VENOUS DOPPLER HISTORY: Acute pain and swelling of the right lower leg DVT? COMPARISON STUDY: Duplex venous Doppler study 04/25/2018 FINDINGS: Limited study secondary to patient decompensation. No flow identified within the superficia l femoral and popliteal veins study is limited secondary to patient body habitus and condition. The r emaining deep venous structures appear normal. Lower extremity subcutaneous edema. IMPRESSION: Limited study as above without definite venous flow identified within the superficial femoral and pop liteal veins. Findings may represent occlusive DVT, however secondary to the aforementioned limitatio ns of the study a follow-up lower extremity Doppler study is recommended when the patient is clinical ly stable. ACT 112: Negative or not required by law. Electronically signed by: Michael hZao M.D. 08/31/2021 8:42 AM
[2021-08-31] MEDS ORDERED: PRIMARY PLUMSET--Send if TPA given as SVP IV ONE (08:45)
[2021-08-31 09:23] LABS: BUN Creatinine Ratio 19.9 (10-20); Blood Urea Nitrogen 42 mg/dl (7-18); C Reactive Protein 4.34 mg/dl (0-0.29); Calcium 9.2 mg/dl (8.5-10.1); Carbon Dioxide 19 mmol/L (21-32); Chloride 100 mmol/L (98-107); Creatinine Clr Calc Pharmacy 45.5 ml/min; Est GFR (African American) 30.9 ml/min; Est GFR (Non-African American) 26.7 ml/min; Glucose 345 mg/dl (70-99); Magnesium 2.9 mg/dl (1.8-2.4); Phosphorus 9.2 mg/dl (2.5-4.9); Potassium 5.1 mmol/L (3.5-5.1); Sodium 134 mmol/L (136-145)
--- NOTE | 2021-08-31 09:44 | Communication Note ---
Date of Service: August 31, 2021 Critical CARE addendum: Was called by the nurse as the patient was getting hypotensive and hypoxic Advice to go down on the PEEP to 5 get a stat chest x-ray start the patient on Levophed By the time Levophed would have been started patient got bradycardic and a CODE BLUE was called for asystole Patient got multiple rounds of epi, bicarb as well as calcium chloride. Patient did get DENNIS for a brief interim after 10 minutes of CPR. At that time I looked at the chest x-ray from the morning after intubation that showed peripheral opacities but not significant enough to cause such a degree of hypoxia Patient was found to have DVT as well. Possibility of pulmonary embolism causing the acute decline in patient status was very high. Plan was to give 50 mg of TPA as per massive PE protocol and pharmacy was called. Unfortunately before the TPA could arrive patient went into asystole again. Multiple rounds of epi and bicarb are again given but unfortunately patient was not able to be revived. Patient was pronounced at 8:46 AM Patient's family was informed by Dr. Galvin I have personally spent 32 minutes of critical care time in the direct management of this patient. This is a life/limb threatening event. This includes time spent evaluating patient, direct bedside care, chart review, placing orders, interpretation of diagnostic studies, discussion with consultants, patient, and family members, as well as other required patient management activities. This time is exclusive of all separately billable procedures, and teaching time and separate from and in addition to any other critical care service time. Please note the above document was generated using voice recognition software. It may contain grammatical, syntax or spelling errors. Coding Level of Care Code Critical Care ea addt'l 30 min Time Spent (min) 32
--- NOTE | 2021-08-31 09:45 | Communication Note ---
Date of Service: August 31, 2021 50-year-old lady with PMH of morbid obesity, HLD, HTN, DM 2 insulin requiring and CKD presented to our ED 08/19/2021 with complaint of dry cough for 9 days associated with headache/dizziness/nausea/body aches/diarrhea symptoms. Patient completed COVID-19 vaccination. Outpatient Covid test was positive. Despite supportive management per PCP, patient noted worsening shortness of breath symptoms at home and presented to our ED 08/19. She was being managed for acute hypoxemic respiratory failure secondary to COVID-19 pneumonia with dexamethasone, baricitinib, BiPAP as needed and high flow nasal cannula oxygen titrated per requirement. She was needing increasing requirement of oxygen while in the hospital to maintain saturation acceptable level of saturation. At around 2 AM of 08/31/2021 treasury agent was made aware of sudden hypoxemia after moving patient from chair to bed, needed maximal O2 via HFNC. Patient was intubated subsequently with critical care on board. In the morning at around 8 AM, patient had bradycardia progressing to asystole and CODE BLUE was called at 8:20 AM. Resuscitation was continued for total of 25-minute by code team with critical care attending Dr. Dorothea meade. She received multiple doses of epinephrine, bicarbonate, and 1 dose of calcium gluconate. There was brief period of return of pulse for a minute. ROSC was not achieved by 8:45 AM, critical care attending pronounced time of 8:46 AM. Date of admission: 08/19/2021 Date of : 08/31/2021 Time of : 8:46 AM Contributing factors: Acute hypoxemic respiratory failure secondary to COVID-19 pneumonia on the background of morbid obesity and uncontrolled DM. Date exam: Pupils dilated, no pupillary reflex, nonreactive; absent heart sounds on auscultation, no respiratory sounds on auscultation, no spontaneous respiratory effort, no pulse, no response to painful stimuli. Kelly Galvin MD
[2021-08-31] MEDS ORDERED: NSS 50 ML--Send if TPA given as SVP IV ONE (10:45)
[2021-08-31] MEDS ORDERED: PANTOprazole 40 MG in SYRINGE 0 ML IV SCH (11:00)
[2021-08-31] MEDS ORDERED: ETOMIDATE 2 MG/ML 20 ML VIAL IV ONE (12:24)
[2021-08-31] MEDS ORDERED: ROCURONIUM BROMIDE 10 MG/ML 5 ML VIAL IV ONE (12:24)
[2021-08-31] MEDS ORDERED: SUCCINYLCHOLINE CHLORIDE 20 MG/ML 10 ML VIAL IV ONE (12:24)
[2021-08-31] MEDS ORDERED: fentaNYL citrate 100 MCG/2 ML VIAL IV ONE (12:24)
--- NOTE | 2021-08-31 15:16 | Discharge Summary ---
Date of Service August 31, 2021 Admission HPI Per Admitting Provider History obtained from patient, family, and records. Limited history from patient secondary to BiPAP. Medical history significant for hypertension, hyperlipidemia, DM2 insulin requiring, CRI (baseline creatinine 1.1). Last confinement April 2019 for viral syndrome. 9 days ago, patient noted dry cough, headache, dizziness, nausea, body ache, diarrhea symptoms. Possible COVID-19 contacts at home. Patient completed COVID-19 vaccination. Outpatient COVID-19 test was positive. Supportive management recommended by PCP. Patient noted worsening shortness of breath symptoms at home. Achy chest and abdominal pain from coughing as per patient. No fluid retention. O2 sats 40s upon arrival at the ER. BiPAP initiated at the ER. Decadron administered at the ER. 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 Admission Exam Per Admitting Provider GENERAL: Anxious, uncomfortable, respiratory distress, morbidly obese SKIN: Normal color, warm HEENT: Cochrane palpebral conjunctivae, no ptosis, dry buccal mucosa, BiPAP in place NECK : Supple, short neck, no tenderness CHEST : Decreased breath sounds, occasional expiratory wheezes, no tenderness HEART : RRR, no obvious murmurs ABDOMEN: Some distention, nontender EXTREMITIES : No LE swelling/tenderness, no other conspicuous deformities noted NEUROLOGIC : Coherent, no facial asymmetry, no other gross focality Principal Diagnosis Acute hypoxic respiratory failure secondary to Covid pneumonia. Discharge Exam Pupils dilated, no pupillary reflex, nonreactive; absent heart sounds on auscultation, no respiratory sounds on auscultation, no spontaneous respiratory effort, no pulse, no response to painful stimuli. Discharge Data Allergies Allergy/AdvReac Type Severity Reaction Status Date / Time pramipexole Allergy Intermediate Vomiting Verified 08/19/21 21:20 Consultations 08/19/21 20:37 ED Decision to Admit Stat 08/20/21 00:04 Consult Pulmonology Routine 08/31/21 04:11 Consult Senior Business Development Analyst Routine Ordered Studies 08/31/21 07:07 US venous doppler [facility] Stat Hospital Course (1) Acute hypoxemic respiratory failure: (2) Pneumonia due to 2019-nCoV: DISCHARGE SUMMARY 50-year-old lady with PMH of morbid obesity, HLD, HTN, DM 2 insulin requiring and CKD presented to our ED 08/19/2021 with complaint of dry cough for 9 days associated with headache/dizziness/nausea/body aches/diarrhea symptoms. Patient completed COVID-19 vaccination. Outpatient Covid test was positive. Despite supportive management per PCP, patient noted worsening shortness of breath symptoms at home and presented to our ED 08/19. She was being managed for acute hypoxemic respiratory failure secondary to COVID-19 pneumonia with dexamethasone, baricitinib, BiPAP as needed and high flow nasal cannula oxygen titrated per requirement. She was needing increasing requirement of oxygen while in the hospital to maintain saturation acceptable level of saturation. At around 2 AM of 08/31/2021 brake drum lathe operator was made aware of sudden hypoxemia after moving patient from chair to bed, needed maximal O2 via HFNC. Patient was intubated subsequently with critical care on board. In the morning at around 8 AM, patient had bradycardia progressing to asystole and MARLA BORGES was called at 8:20 AM. Resuscitation was continued for total of 25-minute by code team with critical care attending Dr. Dorothea meade. She received multiple doses of epinephrine, bicarbonate, and 1 dose of calcium gluconate. There was brief period of return of pulse for a minute. ROSC was not achieved by 8:45 AM, critical care attending pronounced time of 8:46 AM. Date of admission: 08/19/2021 Date of : 08/31/2021 Time of : 8:46 AM Contributing factors: Acute hypoxemic respiratory failure secondary to COVID-19 pneumonia on the background of morbid obesity and uncontrolled DM. Family member, her daughter Tabatha Mathias was called over the phone and informed of the condition. Total Time Total Time Spent Total Time Spent (In Minutes): 35 Discharge Plan Discharge Items Patient Disposition: Other Date/Time: 08/31/21 08:46
== END 2021-08-31 12:25 | disposition expired | DRG 208 ==
LOC: ED 19:10 → SUATTDRO 22:17 → 2S 22:17 → 2E 08-31 02:34